=== PATIENT | male | born 1970 | race Caucasian/White ===

== ENCOUNTER 2019-08-22 00:57 | Inpatient (IN) | payer MEDICAID, OTHER ==
[~2019-08-22] VITALS: Ht 185.4 cm; Wt 119.4 kg
[2019-08-22] VITALS (17 sets, daily range): BP systolic 105–174; BP diastolic 65–105
[2019-08-22] MEDS ORDERED: iohexol 350MG/ML 100ml bottle IV ONE (01:22)
--- NOTE | 2019-08-22 01:22 | NUR ---
PT OUT TO CT VIA WHEELCHAIR. HE IS CRACKING JOKES.
[2019-08-22 01:26] LABS: BASOPHILS # (AUTO) 0.1 X10'3 (0-0.2); BASOPHILS % (AUTO) 0.8 % (0-1); EOSINOPHILS # (AUTO) 0.2 X10'3 (0-0.9); EOSINOPHILS % (AUTO) 2.3 % (0-6); HEMOGLOBIN 14.8 g/dl (14.0-17.9); LYMPHOCYTES % (AUTO) 20.4 % (21-51); MEAN CORPUSCULAR HEMOGLOBIN 28.1 PG (27.0-31.0); MEAN CORPUSCULAR HGB CONC 32.8 g/dL (33.0-36.5); MEAN CORPUSCULAR VOLUME 85.6 FL (78-98); MONOCYTES # (AUTO) 0.9 X10'3 (0-0.9); MONOCYTES % (AUTO) 9.2 % (2-12); NEUTROPHILS # (AUTO) 6.5 X10'3 (1.8-7.7); NEUTROPHILS % (AUTO) 67.3 % (42-75); PLATELET COUNT 307 X10'3 (140-440); RED BLOOD COUNT 5.25 X10'6 (4.70-6.10); RED CELL DISTRIBUTION WIDTH 14.1 % (11.5-14.5); WHITE BLOOD COUNT 9.6 X10'3 (4.5-11.0)
[2019-08-22 01:42] LABS: ALANINE AMINOTRANSFERASE 48 U/L (12-78); ALBUMIN 2.9 G/DL (3.4-5.0); ALBUMIN/GLOBULIN RATIO 0.9 (1.1-1.5); ALKALINE PHOSPHATASE 113 IU/L (46-116); ANION GAP 8 (8-16); ASPARTATE AMINO TRANSFERASE 23 U/L (10-37); BILIRUBIN,TOTAL 0.4 MG/DL (0.1-1.0); BLOOD UREA NITROGEN 25 MG/DL (7-18); BUN/CREATININE RATIO 17.5 (5.4-32.0); CALCIUM 8.2 MG/DL (8.5-10.1); CHLORIDE 108 MMOL/L (99-107); CREATININE 1.43 MG/DL (0.60-1.10); GLUCOSE 94 MG/DL (70-104); POTASSIUM 4.5 MMOL/L (3.5-5.1); SODIUM 144 MMOL/L (135-145); TOTAL CARBON DIOXIDE 28.4 MMOL/L (24-32); TOTAL PROTEIN 6.1 G/DL (6.4-8.2); eGFR 52 ML/MIN
[2019-08-22] MEDS ORDERED: enoxaparin 100mg/ml syringe SUBCUT ONE (02:20)
[2019-08-22] MEDS ORDERED: enoxaparin 60mg/0.6ml syringe SUBCUT ONE ×2 (02:25→15:25)
[2019-08-22] MEDS ORDERED: potassium Cl 20 mEq SR tablet PO PRN ×2 (03:20)
[2019-08-22] MEDS ORDERED: magnesium 4gm in 100ml NS 100 ML IV PRN (03:20)
[2019-08-22] MEDS ORDERED: magnesium Cl slow-release 64mg tablet PO PRN (03:20)
[2019-08-22] MEDS ORDERED: magnesium 2GM in 50ml NS 50 ML IV PRN (03:20)
[2019-08-22] MEDS ORDERED: ondansetron/PF 4mg/2ml inj IV PRN (03:20)
[2019-08-22] MEDS ORDERED: acetaminophen 325mg tablet PO PRN (03:20)
[2019-08-22] MEDS ORDERED: HYDROcodone/acetaminophen 5mg/325mg tablet PO PRN (03:20)
[2019-08-22] MEDS ORDERED: potassium CL 10mEq/100ml bag 100 ML IV PRN ×2 (03:20)
--- NOTE | 2019-08-22 03:30 | NUR ---
Had a long discussion with the patient to educate him about meth and the effects to his health and encouraged him that 2 days ago will need of been his last time because his body is screaming at him right now. Pt very open to discussion asked questions and took it to heart.
[2019-08-22] MEDS ORDERED: diltiazem 5mg/ml 5ml inj. IV ONE ×2 (04:35→15:05)
[2019-08-22] MEDS: normal saline 1000ml 1,000 ML IV SCH (05:47)
[2019-08-22] MEDS ORDERED: piperacillin/tazo 3.375gm/50ml 50 ML IV SCH (06:00)
[2019-08-22] MEDS ORDERED: normal saline 1000ml 1,000 ML IV SCH (06:00)
--- NOTE | 2019-08-22 07:33 | NUR ---
Patient in room PCU 3028. I have received report from PRODUCT INSPECTION SUPERVISOR and had the opportunity to ask questions and assume patient care.
--- NOTE | 2019-08-22 07:55 | NUR ---
pt arrived on unit
[2019-08-22] MEDS: K and/or MAG REPLACEMENT MC SCH ×2 (08:00→20:00)
[2019-08-22] MEDS ORDERED: levoFLOXACIN-Levaquin 750MG/D5 150 ML IV SCH (08:00)
--- NOTE | 2019-08-22 08:17 | NUR ---
Vancomycin started in ER, not scanned. Scanned and verified by RN on PCU.
--- NOTE | 2019-08-22 08:18 | NUR ---
VANCOMYCIN STARTED IN ER AT 0745, UNABLE TO DOCUMENT IN EMAR DUE TO SCAN ISSUES.
--- NOTE | 2019-08-22 08:19 | NUR ---
Meds not given in ER. Will administer on PCU. Pharmacy message noted on PCU.
[2019-08-22] MEDS: lactobacillus rhamnosus 10,000 MMU CELLS/CAPSULE PO SCH ×2 (08:21→21:20)
[2019-08-22] MEDS: furosemide 40mg/4ml inj IV SCH ×2 (09:08→21:19)
[2019-08-22] MEDS ORDERED: NO HOME MEDS (09:45)
[2019-08-22] MEDS: piperacillin/tazo 3.375gm/50ml 50 ML IV SCH ×2 (11:03→16:36)
--- NOTE | 2019-08-22 14:58 | NUR ---
Report given to charge gang weigher for lunch. No phone to give.
[2019-08-22] MEDS ORDERED: diltiazem-NS 100mg/100ml 125 ML IV SCH (15:05)
--- NOTE | 2019-08-22 15:30 | NUR ---
resumed care of pt
[2019-08-22 15:55] LABS: PARTIAL THROMBOPLASTIN TIME 29 SECONDS (22-32)
[2019-08-22] MEDS: diltiazem-NS 100mg/100ml 100 ML IV SCH (16:03)
--- NOTE | 2019-08-22 17:33 | NUR ---
Sent to Dr Duvall PAGER ID: [phone] MESSAGE: RE: Daniel Khan [id number]. Pt having increasing SOB. -Kim [phone]
--- NOTE | 2019-08-22 17:36 | NUR ---
Dr Duvall aware of pt's SOB. 1 mg ativan IV Q 4hr PRN ordered for anxiety. will continue to monitor
[2019-08-22] MEDS ORDERED: LORazepam 2 mg/ml vial IV PRN (17:40)
--- NOTE | 2019-08-22 18:40 | NUR ---
Problems reprioritized. Patient report given, questions answered & plan of care reviewed with MOOSE Conner.
[2019-08-22] MEDS ORDERED: enoxaparin 40mg/0.4ml syringe SQ SCH (20:00)
[2019-08-22] MEDS ORDERED: enoxaparin 80mg/0.8ml syringe SUBCUT SCH (20:00)
[2019-08-22] MEDS: enoxaparin 60mg/0.6ml syringe SUBCUT SCH (21:21)
[2019-08-23] VITALS (13 sets, daily range): BP systolic 100–150; BP diastolic 63–106
[2019-08-23] MEDS: piperacillin/tazo 3.375gm/50ml 50 ML IV SCH ×3 (04:40→16:23)
[2019-08-23 05:21] LABS: BASOPHILS # (AUTO) 0.1 X10'3 (0-0.2); BASOPHILS % (AUTO) 1.1 % (0-1); EOSINOPHILS # (AUTO) 0.3 X10'3 (0-0.9); EOSINOPHILS % (AUTO) 3.1 % (0-6); HEMATOCRIT 45.3 % (42.0-52.0); HEMOGLOBIN 15.3 g/dl (14.0-17.9); LYMPHOCYTES # (AUTO) 1.9 X10'3 (1.1-4.8); LYMPHOCYTES % (AUTO) 19.1 % (21-51); MEAN CORPUSCULAR HEMOGLOBIN 28.8 PG (27.0-31.0); MEAN CORPUSCULAR HGB CONC 33.9 g/dL (33.0-36.5); MEAN CORPUSCULAR VOLUME 85.1 FL (78-98); MEAN PLATELET VOLUME 8.3 FL (7.4-10.4); MONOCYTES # (AUTO) 0.9 X10'3 (0-0.9); NEUTROPHILS # (AUTO) 6.8 X10'3 (1.8-7.7); NEUTROPHILS % (AUTO) 67.7 % (42-75); PLATELET COUNT 286 X10'3 (140-440); RED BLOOD COUNT 5.33 X10'6 (4.70-6.10); WHITE BLOOD COUNT 10.1 X10'3 (4.5-11.0)
[2019-08-23 05:22] LABS: PARTIAL THROMBOPLASTIN TIME 25 SECONDS (22-32)
[2019-08-23 05:38] LABS: ALBUMIN 3.1 G/DL (3.4-5.0); ANION GAP 7 (8-16); BLOOD UREA NITROGEN 27 MG/DL (7-18); BUN/CREATININE RATIO 16.9 (5.4-32.0); CALCIUM 8.7 MG/DL (8.5-10.1); CHLORIDE 104 MMOL/L (99-107); CHOL/HDL RATIO 2.6 (0.00-4.99); CHOLESTEROL 113 MG/DL (0-200); GLUCOSE 93 MG/DL (70-104); HDL CHOLESTEROL 44 MG/DL (35-60); LDL CHOLESTEROL 65 MG/DL (50-100); MAGNESIUM 1.8 MG/DL (1.5-2.4); POTASSIUM 3.8 MMOL/L (3.5-5.1); SODIUM 140 MMOL/L (135-145); TOTAL CARBON DIOXIDE 29.4 MMOL/L (24-32); TRIGLYCERIDES 55 MG/DL (20-135); eGFR 46 ML/MIN
--- NOTE | 2019-08-23 06:53 | NUR ---
Patient in room PCU 3028. I have received report from MOOSE Conner and had the opportunity to ask questions and assume patient care.
[2019-08-23] MEDS: K and/or MAG REPLACEMENT MC SCH ×2 (07:09→20:00)
[2019-08-23] MEDS: furosemide 40mg/4ml inj IV SCH ×2 (07:18→20:17)
[2019-08-23] MEDS: enoxaparin 60mg/0.6ml syringe SUBCUT SCH ×2 (07:19→20:18)
[2019-08-23] MEDS: lactobacillus rhamnosus 10,000 MMU CELLS/CAPSULE PO SCH ×2 (07:19→20:17)
--- NOTE | 2019-08-23 07:47 | NUR ---
Kenan Kline in Pharmacy the pharmacist on today hold the 0800 Zosyn due to the last nights still running after being ran late.
[2019-08-23] MEDS: diltiazem-NS 100mg/100ml 100 ML IV SCH (08:22)
--- NOTE | 2019-08-23 18:43 | NUR ---
Problems reprioritized. Patient report given, questions answered & plan of care reviewed with MOOSE Lea.
[2019-08-23 19:18] LABS: CLARITY,URINE CLEAR (Clear); COLOR,URINE YELLOW (Yellow); GLUCOSE, URINE NEGATIVE (Neg); KETONES,URINE NEGATIVE (Neg); LEUKOCYTE ESTERASE ,URINE NEGATIVE (Neg); NITRITES, URINE NEGATIVE (Neg); OCCULT BLOOD,URINE NEGATIVE (Neg); PH,URINE 7.5 (4.8-8.0); PROTEIN,URINE NEGATIVE (Neg); UROBILINOGEN,URINE 0.2 E.U/dL (0.2-1.0)
[2019-08-23 19:23] LABS: UA COLLECTION TYPE URINAL
[2019-08-23 19:24] LABS: URINE AMPHETAMINE SCREEN NEGATIVE (Neg); URINE BARBITUATE SCREEN NEGATIVE (Neg); URINE BENZODIAZEPINES SCREEN NEGATIVE (Neg); URINE CANNABINOID SCREEN NEGATIVE (Neg); URINE COCAINE SCREEN NEGATIVE (Neg); URINE METHADONE SCREEN NEGATIVE (Neg); URINE OPIATE SCREEN NEGATIVE (Neg); URINE PHENCYCLIDINE SCREEN NEGATIVE (Neg)
[2019-08-23] MEDS ORDERED: VANCOMYCIN LEVEL IV ONE (19:30)
[2019-08-24] VITALS (13 sets, daily range): BP systolic 89–143; BP diastolic 20–92
[2019-08-24] MEDS: piperacillin/tazo 3.375gm/50ml 50 ML IV SCH (00:42)
[2019-08-24] MEDS: normal saline 1000ml 1,000 ML IV SCH (03:20)
[2019-08-24] MEDS: diltiazem-NS 100mg/100ml 100 ML IV SCH (05:19)
--- NOTE | 2019-08-24 06:05 | NUR ---
Problems reprioritized. Patient report given, questions answered & plan of care reviewed with Maico VIRK.
--- NOTE | 2019-08-24 06:09 | NUR ---
Patient in room PCU 3028. I have received report from MOOSE Lea and had the opportunity to ask questions and assume patient care.
[2019-08-24 06:17] LABS: BASOPHILS # (AUTO) 0.1 X10'3 (0-0.2); EOSINOPHILS # (AUTO) 0.3 X10'3 (0-0.9); EOSINOPHILS % (AUTO) 3.4 % (0-6); HEMATOCRIT 47.9 % (42.0-52.0); HEMOGLOBIN 16.3 g/dl (14.0-17.9); LYMPHOCYTES # (AUTO) 1.6 X10'3 (1.1-4.8); LYMPHOCYTES % (AUTO) 16.6 % (21-51); MEAN CORPUSCULAR HEMOGLOBIN 28.5 PG (27.0-31.0); MEAN PLATELET VOLUME 8.1 FL (7.4-10.4); MONOCYTES # (AUTO) 0.9 X10'3 (0-0.9); NEUTROPHILS # (AUTO) 6.5 X10'3 (1.8-7.7); PLATELET COUNT 321 X10'3 (140-440); RED CELL DISTRIBUTION WIDTH 13.6 % (11.5-14.5); WHITE BLOOD COUNT 9.4 X10'3 (4.5-11.0)
[2019-08-24 06:23] LABS: PARTIAL THROMBOPLASTIN TIME 31 SECONDS (22-32)
[2019-08-24 06:43] LABS: ALBUMIN 3.1 G/DL (3.4-5.0); ANION GAP 11 (8-16); BLOOD UREA NITROGEN 30 MG/DL (7-18); BUN/CREATININE RATIO 16.7 (5.4-32.0); CALCIUM 8.8 MG/DL (8.5-10.1); CHLORIDE 102 MMOL/L (99-107); GLUCOSE 118 MG/DL (70-104); MAGNESIUM 1.8 MG/DL (1.5-2.4); POTASSIUM 3.6 MMOL/L (3.5-5.1); SODIUM 142 MMOL/L (135-145); TOTAL CARBON DIOXIDE 28.9 MMOL/L (24-32); eGFR 40 ML/MIN
[2019-08-24] MEDS: furosemide 40mg/4ml inj IV SCH (07:53)
[2019-08-24] MEDS: lactobacillus rhamnosus 10,000 MMU CELLS/CAPSULE PO SCH ×2 (07:53→19:44)
[2019-08-24] MEDS: enoxaparin 60mg/0.6ml syringe SUBCUT SCH ×2 (07:54→19:45)
[2019-08-24] MEDS ORDERED: levoFLOXACIN 500mg tablet PO SCH (07:55)
[2019-08-24] MEDS: K and/or MAG REPLACEMENT MC SCH ×2 (08:00→19:24)
[2019-08-24] MEDS ORDERED: VANCOmycin 1250MG/NS 250ml Bag 250 ML IV SCH (08:00)
--- NOTE | 2019-08-24 08:42 | NUR ---
PAGER ID: [phone] MESSAGE: [id number] Daniel Khan: regarding the daily Levaquin: Do you want me to give a dose now and then one at 11am? Or just the 11am dose? MOOSE Nina Ext [phone]
[2019-08-24] MEDS: diltiazem 30mg tablet PO SCH ×3 (08:53→19:44)
[2019-08-24] MEDS ORDERED: FLU VACC QS2019-20 36MOS UP/PF 60 MCG/0.5 ML SYRINGE IMVAC ONE (10:00)
[2019-08-24] MEDS ORDERED: pneumococcal 23-VAL P-sac vacc 25 mcg/0.5ml vial IMVAC ONE (10:00)
[2019-08-24] MEDS: levoFLOXACIN 500mg tablet PO SCH (10:55)
--- NOTE | 2019-08-24 14:40 | NUR ---
Refused to ambulate around the khoury patient wants to sleep
--- NOTE | 2019-08-24 18:02 | NUR ---
Problems reprioritized. Patient report given, questions answered & plan of care reviewed with MOOSE Lea.
[2019-08-25] MEDS: diltiazem 30mg tablet PO SCH ×3 (02:59→14:15)
[2019-08-25 03:00] VITALS: BP 114/67
[2019-08-25 06:00] VITALS: BP 111/52
--- NOTE | 2019-08-25 06:04 | NUR ---
Problems reprioritized. Patient report given, questions answered & plan of care reviewed with Maico VIRK.
--- NOTE | 2019-08-25 06:25 | NUR ---
Patient in room PCU 3028. I have received report from MOOSE Lea and had the opportunity to ask questions and assume patient care.
[2019-08-25 06:26] LABS: BASOPHILS # (AUTO) 0.1 X10'3 (0-0.2); BASOPHILS % (AUTO) 0.6 % (0-1); EOSINOPHILS # (AUTO) 0.3 X10'3 (0-0.9); EOSINOPHILS % (AUTO) 2.9 % (0-6); HEMATOCRIT 49.8 % (42.0-52.0); HEMOGLOBIN 16.9 g/dl (14.0-17.9); LYMPHOCYTES # (AUTO) 1.8 X10'3 (1.1-4.8); LYMPHOCYTES % (AUTO) 19.5 % (21-51); MEAN CORPUSCULAR HEMOGLOBIN 28.6 PG (27.0-31.0); MEAN CORPUSCULAR HGB CONC 33.9 g/dL (33.0-36.5); MEAN CORPUSCULAR VOLUME 84.6 FL (78-98); MEAN PLATELET VOLUME 8.3 FL (7.4-10.4); MONOCYTES # (AUTO) 1.1 X10'3 (0-0.9); MONOCYTES % (AUTO) 11.5 % (2-12); NEUTROPHILS # (AUTO) 6.1 X10'3 (1.8-7.7); NEUTROPHILS % (AUTO) 65.5 % (42-75); PLATELET COUNT 331 X10'3 (140-440); RED BLOOD COUNT 5.89 X10'6 (4.70-6.10); RED CELL DISTRIBUTION WIDTH 13.9 % (11.5-14.5); WHITE BLOOD COUNT 9.3 X10'3 (4.5-11.0)
[2019-08-25 06:30] LABS: ALBUMIN 3.1 G/DL (3.4-5.0); ANION GAP 8 (8-16); BLOOD UREA NITROGEN 29 MG/DL (7-18); BUN/CREATININE RATIO 16.7 (5.4-32.0); CALCIUM 8.7 MG/DL (8.5-10.1); CHLORIDE 103 MMOL/L (99-107); CREATININE 1.74 MG/DL (0.60-1.10); GLUCOSE 85 MG/DL (70-104); PARTIAL THROMBOPLASTIN TIME 33 SECONDS (22-32); POTASSIUM 3.9 MMOL/L (3.5-5.1); SODIUM 140 MMOL/L (135-145); TOTAL CARBON DIOXIDE 29.2 MMOL/L (24-32); eGFR 42 ML/MIN
[2019-08-25] MEDS: K and/or MAG REPLACEMENT MC SCH (07:00)
[2019-08-25] MEDS ORDERED: MESSAGE TO NURSING IV ONE (07:30)
[2019-08-25] MEDS: enoxaparin 60mg/0.6ml syringe SUBCUT SCH (07:48)
[2019-08-25] MEDS: lactobacillus rhamnosus 10,000 MMU CELLS/CAPSULE PO SCH (07:48)
[2019-08-25] MEDS ORDERED: furosemide 20MG tablet PO SCH (08:00)
[2019-08-25] MEDS ORDERED: LACT1CAP26 PO (10:56)
[2019-08-25] MEDS ORDERED: LEVO500T89 PO (10:56)
[2019-08-25] MEDS ORDERED: FURO20TA4 PO (10:56)
[2019-08-25] MEDS ORDERED: DILT240C88 PO (10:56)
[2019-08-25] MEDS ORDERED: APIX5TAB3 PO (10:56)
[2019-08-25 11:00] VITALS: BP 110/67
[2019-08-25] MEDS: levoFLOXACIN 500mg tablet PO SCH (11:04)
[2019-08-25] MEDS: diltiazem-NS 100mg/100ml 100 ML IV SCH (13:01)
--- NOTE | 2019-08-25 13:32 | NUR ---
Called in medications to [facility] in [place], [place], talked to Austin Branham.
--- NOTE | 2019-08-25 16:14 | NUR ---
Discharged at 1550. Taken down to lobby by Jolicloud and picked up by family. Meds called in. Educated on meds and given coupon for Eliquis. Educated on A-fib, cellulitis and quitting meth. Educated on follow-up. Tele returned and PIV's taken out. Went with belongings. Stable per Dr Morales for discharge.
[2019-08-25] MEDS ORDERED: VANCOMYCIN LEVEL IV ONE (19:30)
== END 2019-08-25 15:58 | disposition home or self-care (01) | DRG 134 ==
LOC: ER 00:57 → ED HOLD 03:20 → EDBEDREQ 06:30 → PCU 3S 06:59
PROVIDERS: ADMIT Internal Medicine; ATTEND Family Medicine
PROC: B32T1ZZ Computerized Tomography (CT Scan) of Left Pulmonary Artery using Low Osmolar Contrast (ICD-10-PCS; 2019-08-22)
PROC: B3201ZZ Computerized Tomography (CT Scan) of Thoracic Aorta using Low Osmolar Contrast (ICD-10-PCS; 2019-08-22)
PROC: B32S1ZZ Computerized Tomography (CT Scan) of Right Pulmonary Artery using Low Osmolar Contrast (ICD-10-PCS; 2019-08-22)
PROC: 3E02340 Introduction of Influenza Vaccine into Muscle, Percutaneous Approach (ICD-10-PCS; principal; 2019-08-24)
PROC: 3E0234Z Introduction of Serum, Toxoid and Vaccine into Muscle, Percutaneous Approach (ICD-10-PCS; 2019-08-24)
DX: I26.99 Other pulmonary embolism without acute cor pulmonale (principal); I21.A1 Myocardial infarction type 2; J69.0 Pneumonitis due to inhalation of food and vomit; N17.9 Acute kidney failure, unspecified; I48.91 Unspecified atrial fibrillation; I13.0 Hypertensive heart and chronic kidney disease with heart failure and stage 1 through stage 4 chronic kidney disease, or unspecified chronic kidney disease; L03.115 Cellulitis of right lower limb; I50.9 Heart failure, unspecified; N18.9 Chronic kidney disease, unspecified; I48.92 Unspecified atrial flutter; F15.10 Other stimulant abuse, uncomplicated; R00.0 Tachycardia, unspecified; F17.210 Nicotine dependence, cigarettes, uncomplicated; J45.909 Unspecified asthma, uncomplicated; Z85.47 Personal history of malignant neoplasm of testis; Z23 Encounter for immunization; Z71.51 Drug abuse counseling and surveillance of drug abuser; Z71.6 Tobacco abuse counseling
CPT/HCPCS: 36415; 71045; 71275; 80048; 80053; 80061; 80202; 80305; 81003; 83735; 83880; 84443; 84484; 85025; 85610; 85730; 87070; 87077; 87081; 87186; 93005; 93306; 93971; 96372; 99291; G0378; J1650; J1940; J2060; J2543; J3370; J3490; J7030; Q2037; Q9967

== ENCOUNTER 2019-10-09 14:04 | Inpatient (IN) | payer MEDICAID ==
[~2019-10-09] VITALS: Ht 177.8 cm; Wt 106.0 kg
[~2019-10-09 14:04] MED LIST: APIX5TAB3 PO; DILT240C88 PO; FURO20TA4 PO; LACT1CAP26 PO; LEVO500T89 PO
[2019-10-09] MEDS ORDERED: aspirin 81mg tab.chew PO ONE ×2 (14:20→15:05)
[2019-10-09 14:39] LABS: BASOPHILS # (AUTO) 0.1 X10'3 (0-0.2); BASOPHILS % (AUTO) 0.7 % (0-1); EOSINOPHILS # (AUTO) 0.1 X10'3 (0-0.9); EOSINOPHILS % (AUTO) 1.1 % (0-6); HEMATOCRIT 45.7 % (42.0-52.0); HEMOGLOBIN 14.9 g/dl (14.0-17.9); LYMPHOCYTES # (AUTO) 1.3 X10'3 (1.1-4.8); LYMPHOCYTES % (AUTO) 13.5 % (21-51); MEAN CORPUSCULAR HGB CONC 32.6 g/dL (33.0-36.5); MEAN CORPUSCULAR VOLUME 82.8 FL (78-98); MONOCYTES # (AUTO) 1.3 X10'3 (0-0.9); MONOCYTES % (AUTO) 13.3 % (2-12); NEUTROPHILS # (AUTO) 7.1 X10'3 (1.8-7.7); NEUTROPHILS % (AUTO) 71.4 % (42-75); PLATELET COUNT 286 X10'3 (140-440); RED BLOOD COUNT 5.52 X10'6 (4.70-6.10); RED CELL DISTRIBUTION WIDTH 15.6 % (11.5-14.5); WHITE BLOOD COUNT 9.9 X10'3 (4.5-11.0)
[2019-10-09 14:51] LABS: ALANINE AMINOTRANSFERASE 36 U/L (12-78); ALBUMIN 3.4 G/DL (3.4-5.0); ALBUMIN/GLOBULIN RATIO 1.1 (1.1-1.5); ALKALINE PHOSPHATASE 102 IU/L (46-116); ANION GAP 5 (8-16); ASPARTATE AMINO TRANSFERASE 32 U/L (10-37); BILIRUBIN,TOTAL 1.2 MG/DL (0.1-1.0); BLOOD UREA NITROGEN 30 MG/DL (7-18); BUN/CREATININE RATIO 15.8 (5.4-32.0); CALCIUM 8.9 MG/DL (8.5-10.1); CHLORIDE 107 MMOL/L (99-107); GLUCOSE 89 MG/DL (70-104); POTASSIUM 4.8 MMOL/L (3.5-5.1); SODIUM 142 MMOL/L (135-145); TOTAL CARBON DIOXIDE 29.9 MMOL/L (24-32); TOTAL PROTEIN 6.5 G/DL (6.4-8.2); eGFR 38 ML/MIN
--- NOTE | 2019-10-09 14:52 | NUR ---
PT WAS HERE FOR CHF AND GIVEN PRESCRIPTION FOR LASIX. PT AWAITING INSURANCE APPROVAL. PT UNABLE TO FILL PRESCRIPTION AND FEELING TIGHTNESS IN HIS CHEST FROM FLUIDS PT STATES. PT HAS BILAT LOWER EXTREMITY EDEMA.
[2019-10-09 14:59] LABS: MAGNESIUM 1.9 MG/DL (1.5-2.4)
[2019-10-09] MEDS ORDERED: heparin 25,000 UNIT/250ml bag 250 ML IV SCH (15:03)
[2019-10-09] MEDS ORDERED: heparin 10,000 units/1 ML INJ IV ONE ×2 (15:05→15:35)
[2019-10-09] MEDS ORDERED: nitroGLYCERIN 0.4mg SUBLingual tab SL PRN (15:05)
[2019-10-09] MEDS ORDERED: heparin 10,000 units/1 ML INJ IV PRN ×2 (15:05→15:35)
[2019-10-09 15:25] LABS: PARTIAL THROMBOPLASTIN TIME 28 SECONDS (22-32)
[2019-10-09] MEDS ORDERED: normal saline 1000ml 1,000 ML IV SCH (15:33)
[2019-10-09] MEDS ORDERED: mag hydrox/Alum hydrox/simeth 30ml oral suspension PO PRN (15:35)
[2019-10-09] MEDS ORDERED: magnesium hydroxide 30ml (MOM) UD suspension PO PRN (15:35)
[2019-10-09] MEDS ORDERED: ondansetron/PF 4mg/2ml inj IV PRN (15:35)
[2019-10-09] MEDS: heparin 25,000 UNIT/250ml bag 250 ML IV SCH ×2 (15:50→21:57)
[2019-10-09] MEDS ORDERED: FURO40TA4 PO (16:23)
[2019-10-09] MEDS ORDERED: HYDR-3686 PO (16:24)
[2019-10-09] MEDS ORDERED: WARF1TAB83 PO (16:25)
[2019-10-09] MEDS ORDERED: METO50TA16 PO (16:25)
--- NOTE | 2019-10-09 17:18 | NUR ---
Patient going to RM 316. I have received report from MOOSE Olmedo and had the opportunity to ask questions and assume patient care.
[2019-10-09 17:55] VITALS: BP 151/109
--- NOTE | 2019-10-09 18:00 | NUR ---
PAGER ID: [phone] MESSAGE: RM 316 (ER admit) HR 139, BP 151/109. Pt SOB RR 28, edematous +2/+3 generalized. Echo? Please reconcile meds. Thx ACCE [id number]
--- NOTE | 2019-10-09 18:24 | NUR ---
Problems reprioritized. Patient report given, questions answered & plan of care reviewed with MOOSE Kaye.
--- NOTE | 2019-10-09 18:26 | NUR ---
received report from MOOSE Forte
[2019-10-09] MEDS: furosemide 10 MG/1 ML 10ml inj IV SCH (19:09)
--- NOTE | 2019-10-09 19:15 | NUR ---
paged dr. sommer about pt being on heparin gtt, SOB, pain R neck, HR 130s, BP 170/117, dusky skin, delayed cap refill, states same feeling prior getting PE last month. MD aware of scheduled coumadin of 9mg and metoprolol of 50 mg PO tomorrow AM. Dr. Sommer adjusted metoprolol to be given at 1925 once PO 50 mg. pt will then receive it again in the morning. no new orders or changes in regards to coumadin.
[2019-10-09] MEDS ORDERED: ipratropium/albuterol 3ml nebule NEB PRN (19:25)
[2019-10-09] MEDS ORDERED: metoprolol tartrate 50mg tablet PO ONE (19:25)
--- NOTE | 2019-10-09 19:25 | NUR ---
PAGER ID: [phone] MESSAGE: [id number] Daniel Khan on heparin gtt, SOB, pain R neck, HR 130s, BP 170/117, dusky skin, delayed cap refill, states same feeling from PE last month. scheduled coumadin 9mg&metoprolol 50 mg PO tmo AM. change time to now? PRN HTN med? ext. [phone]
[2019-10-09 20:23] LABS: URINE AMPHETAMINE SCREEN POSITIVE (Neg); URINE BARBITUATE SCREEN NEGATIVE (Neg); URINE BENZODIAZEPINES SCREEN NEGATIVE (Neg); URINE CANNABINOID SCREEN NEGATIVE (Neg); URINE COCAINE SCREEN NEGATIVE (Neg); URINE METHADONE SCREEN NEGATIVE (Neg); URINE OPIATE SCREEN NEGATIVE (Neg); URINE PHENCYCLIDINE SCREEN NEGATIVE (Neg)
[2019-10-09] MEDS: morphine 2 MG/ML inj. syringe IV PRN (20:51)
[2019-10-09] MEDS: hydrOXYzine 25 MG tablet PO SCH (20:53)
[2019-10-09 22:00] VITALS: BP 115/61
--- NOTE | 2019-10-10 00:14 | NUR ---
spoke with Dr. Henson on the phone. aware of pt's consistent HR of 130s since arriving in the unit. pt BUN is 30 and creat 1.9. pt also receiving lasix. stated she cannot give any new orders for pt right now and "ST will resolve on its own" depending on pt's hydration. will continue to monitor.
[2019-10-10 02:00] VITALS: BP 137/109
[2019-10-10 03:25] LABS: BASOPHILS # (AUTO) 0.1 X10'3 (0-0.2); BASOPHILS % (AUTO) 0.8 % (0-1); EOSINOPHILS # (AUTO) 0.2 X10'3 (0-0.9); EOSINOPHILS % (AUTO) 1.8 % (0-6); HEMATOCRIT 44.8 % (42.0-52.0); HEMOGLOBIN 14.6 g/dl (14.0-17.9); LYMPHOCYTES # (AUTO) 1.7 X10'3 (1.1-4.8); LYMPHOCYTES % (AUTO) 17.7 % (21-51); MEAN CORPUSCULAR HEMOGLOBIN 27.1 PG (27.0-31.0); MEAN CORPUSCULAR HGB CONC 32.7 g/dL (33.0-36.5); MEAN PLATELET VOLUME 8.4 FL (7.4-10.4); MONOCYTES # (AUTO) 1.1 X10'3 (0-0.9); MONOCYTES % (AUTO) 11.2 % (2-12); NEUTROPHILS # (AUTO) 6.7 X10'3 (1.8-7.7); NEUTROPHILS % (AUTO) 68.5 % (42-75); PLATELET COUNT 273 X10'3 (140-440); RED CELL DISTRIBUTION WIDTH 15.1 % (11.5-14.5); WHITE BLOOD COUNT 9.7 X10'3 (4.5-11.0)
[2019-10-10 03:41] LABS: ALBUMIN 3.3 G/DL (3.4-5.0); ANION GAP 9 (8-16); BLOOD UREA NITROGEN 31 MG/DL (7-18); BUN/CREATININE RATIO 17.5 (5.4-32.0); CALCIUM 8.7 MG/DL (8.5-10.1); CHLORIDE 106 MMOL/L (99-107); CREATININE 1.77 MG/DL (0.60-1.10); GLUCOSE 96 MG/DL (70-104); POTASSIUM 4.5 MMOL/L (3.5-5.1); SODIUM 140 MMOL/L (135-145); TOTAL CARBON DIOXIDE 25.3 MMOL/L (24-32); eGFR 41 ML/MIN
[2019-10-10] MEDS: heparin 25,000 UNIT/250ml bag 250 ML IV SCH ×2 (05:18→08:40)
[2019-10-10 06:00] VITALS: BP 144/97
--- NOTE | 2019-10-10 06:00 | NUR ---
Patient in room MED 316. I have received report from MOOSE Kaye and had the opportunity to ask questions and assume patient care.
[2019-10-10] MEDS: furosemide 10 MG/1 ML 10ml inj IV SCH ×2 (07:33→20:00)
[2019-10-10] MEDS: metoprolol tartrate 50mg tablet PO SCH (07:33)
[2019-10-10] MEDS: warfarin 3mg tablet PO SCH (07:33)
[2019-10-10 11:00] VITALS: BP 130/79
[2019-10-10 15:00] VITALS: BP 131/92
[2019-10-10 18:00] VITALS: BP 137/98
--- NOTE | 2019-10-10 18:22 | NUR ---
Problems reprioritized. Patient report given, questions answered & plan of care reviewed with MOOSE Kaye.
--- NOTE | 2019-10-10 18:59 | NUR ---
received report from MOOSE Forte
[2019-10-10] MEDS: hydrOXYzine 25 MG tablet PO SCH (21:55)
[2019-10-10 22:00] VITALS: BP 139/94
[2019-10-11] MEDS: heparin 25,000 UNIT/250ml bag 250 ML IV SCH ×2 (00:21→16:04)
[2019-10-11 01:07] LABS: BASOPHILS # (AUTO) 0.1 X10'3 (0-0.2); BASOPHILS % (AUTO) 1.6 % (0-1); EOSINOPHILS # (AUTO) 0.2 X10'3 (0-0.9); HEMATOCRIT 42.3 % (42.0-52.0); LYMPHOCYTES # (AUTO) 1.5 X10'3 (1.1-4.8); LYMPHOCYTES % (AUTO) 18.5 % (21-51); MEAN CORPUSCULAR HEMOGLOBIN 27.6 PG (27.0-31.0); MEAN CORPUSCULAR HGB CONC 33.2 g/dL (33.0-36.5); MEAN CORPUSCULAR VOLUME 83.1 FL (78-98); MEAN PLATELET VOLUME 8.2 FL (7.4-10.4); MONOCYTES % (AUTO) 12.1 % (2-12); NEUTROPHILS # (AUTO) 5.4 X10'3 (1.8-7.7); NEUTROPHILS % (AUTO) 64.8 % (42-75); PLATELET COUNT 237 X10'3 (140-440); RED BLOOD COUNT 5.09 X10'6 (4.70-6.10); RED CELL DISTRIBUTION WIDTH 15.5 % (11.5-14.5); WHITE BLOOD COUNT 8.4 X10'3 (4.5-11.0)
[2019-10-11 01:15] LABS: ALBUMIN 3.1 G/DL (3.4-5.0); ANION GAP 5 (8-16); BLOOD UREA NITROGEN 38 MG/DL (7-18); BUN/CREATININE RATIO 23.2 (5.4-32.0); CALCIUM 8.7 MG/DL (8.5-10.1); CHLORIDE 104 MMOL/L (99-107); CREATININE 1.64 MG/DL (0.60-1.10); GLUCOSE 76 MG/DL (70-104); POTASSIUM 3.8 MMOL/L (3.5-5.1); SODIUM 142 MMOL/L (135-145); TOTAL CARBON DIOXIDE 33.4 MMOL/L (24-32); eGFR 45 ML/MIN
--- NOTE | 2019-10-11 01:47 | NUR ---
PT came back at a therapeutic range of 46. rate was not changed. rate has been constantly 18 ml/hr. IV spreadsheet stated it was increased at 19 ml/hr at 0021, but it was still 18 ml/hr. set rate was 19 ml/hr and was not changed in the column before saving. rate was co-signed as rate was not change, maintained at 18 ml/hr.
[2019-10-11 02:00] VITALS: BP 142/75
[2019-10-11 06:00] VITALS: BP 142/108
[2019-10-11] MEDS: metoprolol tartrate 50mg tablet PO SCH ×2 (07:17→19:59)
[2019-10-11] MEDS: acetaminophen 325mg tablet PO PRN ×2 (07:17→19:58)
[2019-10-11] MEDS: warfarin 3mg tablet PO SCH (07:18)
[2019-10-11] MEDS: furosemide 10 MG/1 ML 10ml inj IV SCH ×2 (07:18→20:00)
[2019-10-11] MEDS ORDERED: warfarin 3mg tablet PO ONE (09:40)
[2019-10-11 10:00] VITALS: BP 99/62
[2019-10-11 15:00] VITALS: BP 125/64
[2019-10-11] MEDS: emollient combination-Eucerin 250 ML LOTION TP SCH (15:30)
--- NOTE | 2019-10-11 15:31 | NUR ---
Wound care assessed patients legs, no open wounds, old scabs, dry skin, chronic changes to nails and toes. Eucerin Plus ordered for BLE. If further wound care needs arise notify wound care.
[2019-10-11 18:00] VITALS: BP 157/94
--- NOTE | 2019-10-11 19:16 | NUR ---
Patient in room MED 316. I have received report from Reba VIRK and had the opportunity to ask questions and assume patient care.
[2019-10-11] MEDS: hydrOXYzine 25 MG tablet PO SCH (19:59)
[2019-10-11] MEDS ORDERED: potassium CL 10mEq/100ml bag 100 ML IV PRN (21:55)
[2019-10-11] MEDS ORDERED: potassium Cl 20 mEq SR tablet PO PRN ×2 (21:55)
[2019-10-11 22:00] VITALS: BP 97/66
--- NOTE | 2019-10-11 23:40 | NUR ---
PAGER ID: [phone] MESSAGE: Daniel Khan Rm 316, Here for recurrent PE's on heparin gtt. FYI Patient appears to be in Atrial Flutter, now that HR has slowed. EKG showed Aflutter on admit, Has been documented as sinus tach last few days. Zachary Calderon EXT [phone]
[2019-10-12 01:28] LABS: BASOPHILS # (AUTO) 0.1 X10'3 (0-0.2); BASOPHILS % (AUTO) 0.8 % (0-1); EOSINOPHILS # (AUTO) 0.3 X10'3 (0-0.9); EOSINOPHILS % (AUTO) 3.4 % (0-6); HEMATOCRIT 44.7 % (42.0-52.0); HEMOGLOBIN 14.8 g/dl (14.0-17.9); LYMPHOCYTES # (AUTO) 1.6 X10'3 (1.1-4.8); LYMPHOCYTES % (AUTO) 19.3 % (21-51); MEAN CORPUSCULAR HEMOGLOBIN 27.3 PG (27.0-31.0); MEAN CORPUSCULAR VOLUME 82.6 FL (78-98); MEAN PLATELET VOLUME 8.7 FL (7.4-10.4); MONOCYTES # (AUTO) 1.2 X10'3 (0-0.9); MONOCYTES % (AUTO) 14.7 % (2-12); NEUTROPHILS # (AUTO) 5.2 X10'3 (1.8-7.7); NEUTROPHILS % (AUTO) 61.8 % (42-75); PLATELET COUNT 264 X10'3 (140-440); RED BLOOD COUNT 5.41 X10'6 (4.70-6.10); RED CELL DISTRIBUTION WIDTH 15.3 % (11.5-14.5); WHITE BLOOD COUNT 8.3 X10'3 (4.5-11.0)
[2019-10-12 01:35] LABS: ALBUMIN 3.2 G/DL (3.4-5.0); ANION GAP 7 (8-16); BLOOD UREA NITROGEN 41 MG/DL (7-18); BUN/CREATININE RATIO 26.1 (5.4-32.0); CALCIUM 9.2 MG/DL (8.5-10.1); CHLORIDE 103 MMOL/L (99-107); CREATININE 1.57 MG/DL (0.60-1.10); GLUCOSE 101 MG/DL (70-104); POTASSIUM 3.9 MMOL/L (3.5-5.1); SODIUM 140 MMOL/L (135-145); TOTAL CARBON DIOXIDE 30.5 MMOL/L (24-32); eGFR 47 ML/MIN
[2019-10-12 02:00] VITALS: BP 119/70
[2019-10-12] MEDS: morphine 2 MG/ML inj. syringe IV PRN (05:17)
[2019-10-12 06:00] VITALS: BP 136/87
--- NOTE | 2019-10-12 06:22 | NUR ---
Problems reprioritized. Patient report given, questions answered & plan of care reviewed with Leonora VIRK.
[2019-10-12] MEDS: K and/or MAG REPLACEMENT MC SCH ×2 (08:00→20:00)
[2019-10-12] MEDS: metoprolol tartrate 50mg tablet PO SCH ×2 (09:00→20:04)
[2019-10-12] MEDS: emollient combination-Eucerin 250 ML LOTION TP SCH (09:03)
[2019-10-12] MEDS: warfarin 3mg tablet PO SCH (09:03)
[2019-10-12] MEDS: furosemide 10 MG/1 ML 10ml inj IV SCH ×2 (09:04→20:05)
[2019-10-12] MEDS: heparin 25,000 UNIT/250ml bag 250 ML IV SCH (09:43)
--- NOTE | 2019-10-12 10:32 | NUR ---
PAGER ID: [phone] MESSAGE: Dr. Espinoza[facility] pharmacy, room 316 Bill ANDRADE, Lovenox dose is BID, not daily. Please confirm this order. Thank you, Michelle Dumont RN [id number]
[2019-10-12 11:00] VITALS: BP 115/73
[2019-10-12 15:00] VITALS: BP 119/88
--- NOTE | 2019-10-12 15:46 | NUR ---
Per RN pt still hungry following meals. Pt currently on heart healthy diet documented with 100% PO intake. Pt to begin receiving double protein TID, d/w dietary. Will continue to follow. Addendum: 10/12/19 at [address] Amended: Links added.
[2019-10-12 18:00] VITALS: BP 121/88
--- NOTE | 2019-10-12 18:25 | NUR ---
Patient in room MED 316. I have received report from SEREEN VIRK and had the opportunity to ask questions and assume patient care.
--- NOTE | 2019-10-12 18:33 | NUR ---
Problems reprioritized. Patient report given, questions answered & plan of care reviewed with Diamond VIRK.
[2019-10-12] MEDS: enoxaparin 80mg/0.8ml syringe SUBCUT SCH (20:03)
[2019-10-12] MEDS: enoxaparin 30mg/0.3ml syringe SUBCUT SCH (20:03)
[2019-10-12] MEDS: hydrOXYzine 25 MG tablet PO SCH (20:04)
[2019-10-12 22:00] VITALS: BP 100/64
[2019-10-13] MEDS: morphine 2 MG/ML inj. syringe IV PRN (01:29)
[2019-10-13 02:00] VITALS: BP 112/72
[2019-10-13 05:37] LABS: ALBUMIN 3.1 G/DL (3.4-5.0); ANION GAP 8 (8-16); BLOOD UREA NITROGEN 46 MG/DL (7-18); BUN/CREATININE RATIO 28.8 (5.4-32.0); CALCIUM 9.6 MG/DL (8.5-10.1); CHLORIDE 102 MMOL/L (99-107); GLUCOSE 94 MG/DL (70-104); POTASSIUM 3.9 MMOL/L (3.5-5.1); SODIUM 140 MMOL/L (135-145); TOTAL CARBON DIOXIDE 30.2 MMOL/L (24-32); eGFR 46 ML/MIN
[2019-10-13 05:45] LABS: BASOPHILS # (AUTO) 0.1 X10'3 (0-0.2); BASOPHILS % (AUTO) 0.9 % (0-1); EOSINOPHILS # (AUTO) 0.3 X10'3 (0-0.9); EOSINOPHILS % (AUTO) 3.3 % (0-6); HEMATOCRIT 47.5 % (42.0-52.0); HEMOGLOBIN 15.5 g/dl (14.0-17.9); LYMPHOCYTES # (AUTO) 1.4 X10'3 (1.1-4.8); LYMPHOCYTES % (AUTO) 17.4 % (21-51); MEAN CORPUSCULAR HGB CONC 32.6 g/dL (33.0-36.5); MEAN CORPUSCULAR VOLUME 82.8 FL (78-98); MEAN PLATELET VOLUME 8.5 FL (7.4-10.4); MONOCYTES # (AUTO) 1.2 X10'3 (0-0.9); MONOCYTES % (AUTO) 15.1 % (2-12); NEUTROPHILS # (AUTO) 4.9 X10'3 (1.8-7.7); NEUTROPHILS % (AUTO) 63.3 % (42-75); PLATELET COUNT 284 X10'3 (140-440); RED BLOOD COUNT 5.73 X10'6 (4.70-6.10); RED CELL DISTRIBUTION WIDTH 15.6 % (11.5-14.5); WHITE BLOOD COUNT 7.8 X10'3 (4.5-11.0)
[2019-10-13 06:00] VITALS: BP 137/92
--- NOTE | 2019-10-13 06:50 | NUR ---
Problems reprioritized. Patient report given, questions answered & plan of care reviewed with Leonora VIRK.
--- NOTE | 2019-10-13 06:58 | NUR ---
Patient in room MED 316. I have received report from Diamond VIRK and had the opportunity to ask questions and assume patient care.
[2019-10-13] MEDS: K and/or MAG REPLACEMENT MC SCH ×2 (08:00→20:00)
[2019-10-13] MEDS: emollient combination-Eucerin 250 ML LOTION TP SCH (10:03)
[2019-10-13] MEDS: metoprolol tartrate 50mg tablet PO SCH ×2 (10:09→19:54)
[2019-10-13] MEDS: furosemide 10 MG/1 ML 10ml inj IV SCH ×2 (10:10→19:56)
[2019-10-13] MEDS: enoxaparin 80mg/0.8ml syringe SUBCUT SCH ×2 (10:11→19:56)
[2019-10-13] MEDS: enoxaparin 30mg/0.3ml syringe SUBCUT SCH ×2 (10:12→19:57)
[2019-10-13] MEDS: warfarin 3mg tablet PO SCH (10:13)
[2019-10-13 11:00] VITALS: BP 154/88
[2019-10-13 15:00] VITALS: BP 124/66
[2019-10-13] MEDS ORDERED: amiodarone 50MG/ML inj IV ONE (17:20)
[2019-10-13 18:00] VITALS: BP 136/85
--- NOTE | 2019-10-13 18:46 | NUR ---
PAGER ID: [phone] MESSAGE: Dr. Hatfield, need clarification on order for pt Bill, on ACCE rm 316. Amiodarone? There is order for IV push, do you want loading dose and then po? Please call ACCE. Michelle Dumont RN [phone]
[2019-10-13] MEDS ORDERED: amiodarone 150mg/dext, iso-os 100 ML IV ONE ×2 (18:55)
--- NOTE | 2019-10-13 18:57 | NUR ---
PAGER ID: [phone] MESSAGE: Daniel Khan, RM 316 Just verifying orders Amiodarone 400mg BID or 200Mg Bid. Zachary EXT [phone]
--- NOTE | 2019-10-13 19:38 | NUR ---
Patient in room MED 316. I have received report from Leonora VIRK and had the opportunity to ask questions and assume patient care.
[2019-10-13] MEDS: amiodarone 200mg tablet PO SCH (21:42)
[2019-10-13] MEDS: hydrOXYzine 25 MG tablet PO SCH (21:42)
[2019-10-13 22:00] VITALS: BP 123/69
[2019-10-14] VITALS (7 sets, daily range): BP systolic 95–124; BP diastolic 65–98
[2019-10-14 06:09] LABS: BASOPHILS # (AUTO) 0.1 X10'3 (0-0.2); BASOPHILS % (AUTO) 0.8 % (0-1); EOSINOPHILS # (AUTO) 0.2 X10'3 (0-0.9); EOSINOPHILS % (AUTO) 2.1 % (0-6); HEMATOCRIT 51.5 % (42.0-52.0); HEMOGLOBIN 17.2 g/dl (14.0-17.9); LYMPHOCYTES # (AUTO) 1.4 X10'3 (1.1-4.8); LYMPHOCYTES % (AUTO) 15.2 % (21-51); MEAN CORPUSCULAR HEMOGLOBIN 27.4 PG (27.0-31.0); MEAN CORPUSCULAR HGB CONC 33.4 g/dL (33.0-36.5); MEAN PLATELET VOLUME 8.5 FL (7.4-10.4); MONOCYTES # (AUTO) 1.2 X10'3 (0-0.9); MONOCYTES % (AUTO) 12.2 % (2-12); NEUTROPHILS # (AUTO) 6.6 X10'3 (1.8-7.7); NEUTROPHILS % (AUTO) 69.7 % (42-75); PLATELET COUNT 315 X10'3 (140-440); RED BLOOD COUNT 6.28 X10'6 (4.70-6.10); RED CELL DISTRIBUTION WIDTH 15.5 % (11.5-14.5); WHITE BLOOD COUNT 9.5 X10'3 (4.5-11.0)
--- NOTE | 2019-10-14 06:41 | NUR ---
Problems reprioritized. Patient report given, questions answered & plan of care reviewed with Pat RN.
[2019-10-14 06:57] LABS: ALBUMIN 3.5 G/DL (3.4-5.0); ANION GAP 11 (8-16); BLOOD UREA NITROGEN 46 MG/DL (7-18); BUN/CREATININE RATIO 29.3 (5.4-32.0); CALCIUM 9.6 MG/DL (8.5-10.1); CHLORIDE 100 MMOL/L (99-107); CHOL/HDL RATIO 2.7 (0.00-4.99); CHOLESTEROL 136 MG/DL (0-200); CREATININE 1.57 MG/DL (0.60-1.10); GLUCOSE 98 MG/DL (70-104); HDL CHOLESTEROL 50 MG/DL (35-60); LDL CHOLESTEROL 73 MG/DL (50-100); POTASSIUM 3.7 MMOL/L (3.5-5.1); SODIUM 140 MMOL/L (135-145); TOTAL CARBON DIOXIDE 28.8 MMOL/L (24-32); TRIGLYCERIDES 76 MG/DL (20-135); eGFR 47 ML/MIN
[2019-10-14] MEDS: K and/or MAG REPLACEMENT MC SCH ×2 (08:00→20:00)
[2019-10-14] MEDS: aspirin 81mg tablet.DR PO SCH (08:30)
[2019-10-14] MEDS: metoprolol tartrate 50mg tablet PO SCH ×2 (09:50→20:15)
[2019-10-14] MEDS: amiodarone 200mg tablet PO SCH ×2 (09:50→20:14)
[2019-10-14] MEDS: enoxaparin 30mg/0.3ml syringe SUBCUT SCH ×2 (09:52→20:11)
[2019-10-14] MEDS: warfarin 3mg tablet PO SCH (09:52)
[2019-10-14] MEDS: enoxaparin 80mg/0.8ml syringe SUBCUT SCH ×2 (09:53→20:11)
[2019-10-14] MEDS: furosemide 10 MG/1 ML 10ml inj IV SCH ×2 (09:54→20:14)
[2019-10-14] MEDS: emollient combination-Eucerin 250 ML LOTION TP SCH (09:56)
--- NOTE | 2019-10-14 12:19 | NUR ---
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 PO 75-100% meals receiving double proteins TID meeting needs. LBM 10/12. No nutrition concerns at this time. Will continue to monitor. Rec: 1. continue heart healthy diet; double proteins TIDWM 2. bowel care as needed 3. wt per rx Addendum: 10/14/19 at [address] Amended: Links added.
[2019-10-14] MEDS: hydrOXYzine 25 MG tablet PO SCH (20:14)
[2019-10-14] MEDS: morphine 2 MG/ML inj. syringe IV PRN (21:25)
--- NOTE | 2019-10-14 21:30 | NUR ---
PATIENT REPORTED CHEST PAIN, NONRADIATING, PRESSURE ON LEFT CHEST WALL AND ARM. CHEST PAIN ASSESSMENT WAS PERFORMED, BP TAKEN LEFT AND RIGHT ARMS, PATIENT GIVEN MORPHINE FOR PAIN. WILL MONITOR FOR SYMPTOMATIC CHEST PAIN.
[2019-10-15 02:00] VITALS: BP 107/79
[2019-10-15 04:58] LABS: BASOPHILS # (AUTO) 0.1 X10'3 (0-0.2); BASOPHILS % (AUTO) 1.1 % (0-1); EOSINOPHILS # (AUTO) 0.3 X10'3 (0-0.9); HEMATOCRIT 53.2 % (42.0-52.0); HEMOGLOBIN 17.5 g/dl (14.0-17.9); LYMPHOCYTES # (AUTO) 2.2 X10'3 (1.1-4.8); LYMPHOCYTES % (AUTO) 22.6 % (21-51); MEAN CORPUSCULAR HEMOGLOBIN 27.1 PG (27.0-31.0); MEAN CORPUSCULAR HGB CONC 32.9 g/dL (33.0-36.5); MEAN CORPUSCULAR VOLUME 82.4 FL (78-98); MEAN PLATELET VOLUME 8.5 FL (7.4-10.4); MONOCYTES % (AUTO) 10.2 % (2-12); NEUTROPHILS % (AUTO) 63.1 % (42-75); PLATELET COUNT 319 X10'3 (140-440); RED BLOOD COUNT 6.46 X10'6 (4.70-6.10); RED CELL DISTRIBUTION WIDTH 15.1 % (11.5-14.5); WHITE BLOOD COUNT 9.5 X10'3 (4.5-11.0)
[2019-10-15 05:01] LABS: ALBUMIN 3.5 G/DL (3.4-5.0); ANION GAP 9 (8-16); BLOOD UREA NITROGEN 53 MG/DL (7-18); BUN/CREATININE RATIO 29.8 (5.4-32.0); CALCIUM 9.6 MG/DL (8.5-10.1); CHLORIDE 100 MMOL/L (99-107); CREATININE 1.78 MG/DL (0.60-1.10); GLUCOSE 107 MG/DL (70-104); SODIUM 137 MMOL/L (135-145); TOTAL CARBON DIOXIDE 27.6 MMOL/L (24-32); eGFR 41 ML/MIN
[2019-10-15 05:03] LABS: POTASSIUM 4.3 MMOL/L (3.5-5.1)
--- NOTE | 2019-10-15 06:01 | NUR ---
Problems reprioritized. Patient report given, questions answered & plan of care reviewed with Angel Luis VIRK.
--- NOTE | 2019-10-15 06:25 | NUR ---
Patient in room MED 316. I have received report from Melanie VIRK and had the opportunity to ask questions and assume patient care.
[2019-10-15 06:30] VITALS: BP 102/76
[2019-10-15] MEDS: K and/or MAG REPLACEMENT MC SCH ×2 (08:00→20:00)
[2019-10-15] MEDS: emollient combination-Eucerin 250 ML LOTION TP SCH (08:11)
[2019-10-15] MEDS: aspirin 81mg tablet.DR PO SCH (08:12)
[2019-10-15] MEDS: amiodarone 200mg tablet PO SCH ×2 (08:12→21:01)
[2019-10-15] MEDS: metoprolol tartrate 50mg tablet PO SCH ×2 (08:12→20:00)
[2019-10-15] MEDS: warfarin 3mg tablet PO SCH (08:13)
[2019-10-15] MEDS: furosemide 10 MG/1 ML 10ml inj IV SCH ×2 (08:13→20:00)
[2019-10-15] MEDS: enoxaparin 30mg/0.3ml syringe SUBCUT SCH ×2 (08:14→20:00)
[2019-10-15] MEDS: enoxaparin 80mg/0.8ml syringe SUBCUT SCH (08:14)
[2019-10-15 11:00] VITALS: BP 103/81
[2019-10-15 15:00] VITALS: BP 104/71
--- NOTE | 2019-10-15 17:50 | NUR ---
PAGER ID: [phone] MESSAGE: Sandra RIVERA. INR 3.4. Pharmacy is holding Coumadin. Do you want to continue Lovenox or D/C? Thanks. Angela VIRK Ext [phone] (119 character message out of a maximum of [phone])
[2019-10-15 18:00] VITALS: BP 104/72
--- NOTE | 2019-10-15 18:15 | NUR ---
Patient in room MED 316. I have received report from MOOSE Villafuerte and had the opportunity to ask questions and assume patient care.
--- NOTE | 2019-10-15 18:25 | NUR ---
Gave report to Yolette IVRK
[2019-10-15] MEDS: hydrOXYzine 25 MG tablet PO SCH (21:01)
[2019-10-15 22:00] VITALS: BP 116/75
[2019-10-16 03:00] VITALS: BP 110/52
[2019-10-16 04:54] LABS: BASOPHILS # (AUTO) 0.1 X10'3 (0-0.2); BASOPHILS % (AUTO) 0.7 % (0-1); EOSINOPHILS # (AUTO) 0.2 X10'3 (0-0.9); EOSINOPHILS % (AUTO) 2.5 % (0-6); HEMATOCRIT 52.9 % (42.0-52.0); HEMOGLOBIN 17.6 g/dl (14.0-17.9); LYMPHOCYTES # (AUTO) 2.2 X10'3 (1.1-4.8); LYMPHOCYTES % (AUTO) 22.1 % (21-51); MEAN CORPUSCULAR HGB CONC 33.2 g/dL (33.0-36.5); MEAN CORPUSCULAR VOLUME 81.2 FL (78-98); MEAN PLATELET VOLUME 8.6 FL (7.4-10.4); MONOCYTES # (AUTO) 1.1 X10'3 (0-0.9); MONOCYTES % (AUTO) 11.4 % (2-12); NEUTROPHILS # (AUTO) 6.2 X10'3 (1.8-7.7); NEUTROPHILS % (AUTO) 63.3 % (42-75); PLATELET COUNT 340 X10'3 (140-440); RED BLOOD COUNT 6.51 X10'6 (4.70-6.10); RED CELL DISTRIBUTION WIDTH 15.2 % (11.5-14.5); WHITE BLOOD COUNT 9.8 X10'3 (4.5-11.0)
[2019-10-16 05:12] LABS: ALBUMIN 3.5 G/DL (3.4-5.0); ANION GAP 9 (8-16); BLOOD UREA NITROGEN 62 MG/DL (7-18); BUN/CREATININE RATIO 32.5 (5.4-32.0); CALCIUM 9.2 MG/DL (8.5-10.1); CHLORIDE 100 MMOL/L (99-107); CREATININE 1.91 MG/DL (0.60-1.10); GLUCOSE 100 MG/DL (70-104); POTASSIUM 3.6 MMOL/L (3.5-5.1); SODIUM 139 MMOL/L (135-145); TOTAL CARBON DIOXIDE 29.6 MMOL/L (24-32); eGFR 37 ML/MIN
[2019-10-16 06:00] VITALS: BP 127/94
--- NOTE | 2019-10-16 06:32 | NUR ---
Patient in room MED 316. I have received report from MOOSE Billingsley and had the opportunity to ask questions and assume patient care.
[2019-10-16] MEDS: K and/or MAG REPLACEMENT MC SCH ×2 (08:00→20:00)
[2019-10-16] MEDS: emollient combination-Eucerin 250 ML LOTION TP SCH (08:00)
[2019-10-16] MEDS: metoprolol tartrate 50mg tablet PO SCH ×2 (08:08→22:09)
[2019-10-16] MEDS: enoxaparin 30mg/0.3ml syringe SUBCUT SCH (08:09)
[2019-10-16] MEDS: aspirin 81mg tablet.DR PO SCH (08:30)
[2019-10-16] MEDS: amiodarone 200mg tablet PO SCH ×2 (10:12→19:58)
[2019-10-16] MEDS: furosemide 10 MG/1 ML 10ml inj IV SCH ×2 (10:12→20:00)
[2019-10-16 10:31] LABS: MAGNESIUM 2.5 MG/DL (1.5-2.4)
[2019-10-16 11:00] VITALS: BP 101/73
--- NOTE | 2019-10-16 11:44 | NUR ---
Dr. Duvall present and informed of patients K+ level of 3.6. New orders: K+ and Mg+ replacement per protocol. MOOSE Miller primary RN present and agrees.
[2019-10-16] MEDS ORDERED: magnesium Cl slow-release 64mg tablet PO PRN (11:45)
[2019-10-16] MEDS ORDERED: magnesium 4gm in 100ml NS 100 ML IV PRN (11:45)
[2019-10-16] MEDS ORDERED: potassium Cl 20 mEq SR tablet PO PRN ×2 (11:45)
[2019-10-16] MEDS ORDERED: potassium CL 10mEq/100ml bag 100 ML IV PRN (11:45)
[2019-10-16] MEDS: LORazepam 2 mg/ml vial IV PRN ×2 (12:03→23:17)
[2019-10-16] MEDS ORDERED: iohexol 300mg/ml 100ml inj. ONE (12:45)
[2019-10-16 15:00] VITALS: BP 119/74
[2019-10-16 18:00] VITALS: BP 119/79
--- NOTE | 2019-10-16 18:15 | NUR ---
Patient in room MED 316. I have received report from MOOSE WEISS and had the opportunity to ask questions and assume patient care.
[2019-10-16 22:00] VITALS: BP 115/72
[2019-10-16] MEDS: hydrOXYzine 25 MG tablet PO SCH (22:09)
--- NOTE | 2019-10-16 23:30 | NUR ---
Patient complaining of anxiety, shortness of breath after receiving metoprolol 100mg. BP 91/59 at 2250. Rechecked BP 15 minutes later it was 115/73 Gave PRN Ativan 1mg. Will continue to monitor.
[2019-10-17 02:00] VITALS: BP 88/62
[2019-10-17 06:00] VITALS: BP 122/91
--- NOTE | 2019-10-17 06:17 | NUR ---
Problems reprioritized. Patient report given, questions answered & plan of care reviewed with MOOSE Claire.
[2019-10-17 06:33] LABS: MAGNESIUM 2.4 MG/DL (1.5-2.4); POTASSIUM 4.1 MMOL/L (3.5-5.1)
--- NOTE | 2019-10-17 06:41 | NUR ---
Patient in room MED 316. I have received report from MOOSE De La Vega and had the opportunity to ask questions and assume patient care.
[2019-10-17] MEDS: emollient combination-Eucerin 250 ML LOTION TP SCH (08:00)
[2019-10-17] MEDS: aspirin 81mg tablet.DR PO SCH (08:06)
[2019-10-17] MEDS: amiodarone 200mg tablet PO SCH (08:07)
[2019-10-17] MEDS: furosemide 10 MG/1 ML 10ml inj IV SCH (08:08)
[2019-10-17] MEDS: metoprolol tartrate 50mg tablet PO SCH (08:08)
[2019-10-17] MEDS: K and/or MAG REPLACEMENT MC SCH (08:09)
[2019-10-17 10:00] VITALS: BP 91/65
[2019-10-17] MEDS: LORazepam 2 mg/ml vial IV PRN (10:03)
--- NOTE | 2019-10-17 12:14 | NUR ---
PAGER ID: [phone] MESSAGE: rm. 316. pt. Daniel Khan. pt. already has an order for 1mg Ativan. it was also given 2 hours ago. please advise. MOOSE Rodriguez [phone]
[2019-10-17] MEDS ORDERED: LORazepam 1 MG tablet PO PRN (12:25)
--- NOTE | 2019-10-17 13:02 | NUR ---
PAGER ID: [phone] MESSAGE: 316. pt. Daniel Khan. SAÚL pt. is leaving AMA. thanks. MOOSE Rodriguez
--- NOTE | 2019-10-17 14:09 | NUR ---
pt. went AMA at 1400. , charge nurse and RN explained the risks of leaving AMA and pt. understands and signed the paperwork. pt. stated that he was happy with our services and he had no issues with the staff, he was just tired of waiting around for approval of his lifevest. IV was d/c intact. pt. left with all belongings.
== END 2019-10-17 14:00 | disposition left against medical advice (07) | DRG 194 ==
LOC: ER 14:04 → ED HOLD 15:33 → EDBEDREQ 16:43 → MED 3N 17:39
PROVIDERS: ADMIT Family Medicine; ATTEND Family Medicine
PROC: BW211ZZ Computerized Tomography (CT Scan) of Abdomen and Pelvis using Low Osmolar Contrast (ICD-10-PCS; principal; 2019-10-16)
DX: I13.0 Hypertensive heart and chronic kidney disease with heart failure and stage 1 through stage 4 chronic kidney disease, or unspecified chronic kidney disease (principal); I21.A1 Myocardial infarction type 2; D68.9 Coagulation defect, unspecified; I50.43 Acute on chronic combined systolic (congestive) and diastolic (congestive) heart failure; I42.7 Cardiomyopathy due to drug and external agent; E03.9 Hypothyroidism, unspecified; F15.23 Other stimulant dependence with withdrawal; Z53.29 Procedure and treatment not carried out because of patient's decision for other reasons; F17.210 Nicotine dependence, cigarettes, uncomplicated; I48.91 Unspecified atrial fibrillation; R00.0 Tachycardia, unspecified; J45.909 Unspecified asthma, uncomplicated; N18.9 Chronic kidney disease, unspecified; Z85.47 Personal history of malignant neoplasm of testis; Z86.711 Personal history of pulmonary embolism; Z91.14 Patient's other noncompliance with medication regimen; Z88.8 Allergy status to other drugs, medicaments and biological substances; Z71.51 Drug abuse counseling and surveillance of drug abuser
CPT/HCPCS: 36415; 71045; 74177; 80048; 80053; 80061; 80305; 83735; 83880; 84132; 84443; 84484; 85025; 85610; 85730; 87081; 93005; 93308; 93970; 94760; 99285; G0378; J0282; J1644; J1650; J1940; J2060; J2270; J7030; Q9967; Z7610

== ENCOUNTER 2019-12-22 18:51 | Inpatient (IN) | payer MEDICAID ==
[~2019-12-22] VITALS: Ht 185.4 cm; Wt 120.5 kg
[~2019-12-22 18:51] MED LIST changes: +ALBU8.5H8 INH; -APIX5TAB3 PO; +ASPI-1130; +AZI25OT PO; +BUDE10.22 INH; +CARCD120C PO; -DILT240C88 PO; -FURO20TA4 PO; +FURO40TA4 PO; +HYDR-3686 PO; -LACT1CAP26 PO; -LEVO500T89 PO; +LISI-604 PO; +METO50TA16 PO; +SPIR25TA PO; +WARF1TAB83 PO
[2019-12-22] MEDS ORDERED: diltiazem-D5W 125mg/125ml 125 ML IV SCH (19:10)
[2019-12-22] MEDS ORDERED: diltiazem-NS 100mg/100ml 100 ML IV SCH (19:13)
[2019-12-22] MEDS ORDERED: RIVA10TA PO (19:18)
[2019-12-22] MEDS ORDERED: FURO20TA4 PO (19:18)
[2019-12-22] MEDS ORDERED: heparin 25,000 UNIT/250ml bag 250 ML IV SCH (19:27)
[2019-12-22] MEDS ORDERED: heparin 10,000 units/1 ML INJ IV ONE (19:30)
[2019-12-22 19:47] LABS: TROPONIN I 0.15 NG/ML (0.0-0.05)
--- NOTE | 2019-12-22 19:50 | NUR ---
Venous US of RUE in prog at bedside at this time.
[2019-12-22] MEDS ORDERED: metoprolol tartrate 50mg tablet PO ONE (20:25)
--- NOTE | 2019-12-22 20:52 | NUR ---
Diltiazem gtt DCd per PA order.
[2019-12-22] MEDS ORDERED: ipratropium/albuterol 3ml nebule NEB PRN (22:40)
[2019-12-22] MEDS ORDERED: diphenhydrAMINE 50 mg/ml inj IV PRN (22:40)
[2019-12-22] MEDS ORDERED: potassium Cl 20 mEq SR tablet PO PRN ×2 (22:40)
[2019-12-22] MEDS ORDERED: acetaminophen 325mg tablet PO PRN ×2 (22:40)
[2019-12-22] MEDS ORDERED: magnesium 4gm in 100ml NS 100 ML IV PRN (22:40)
[2019-12-22] MEDS ORDERED: heparin 10,000 units/1 ML INJ IV PRN (22:40)
[2019-12-22] MEDS ORDERED: mag hydrox/Alum hydrox/simeth 30ml oral suspension PO PRN (22:40)
[2019-12-22] MEDS ORDERED: magnesium hydroxide 30ml (MOM) UD suspension PO PRN (22:40)
[2019-12-22] MEDS ORDERED: potassium CL 10mEq/100ml bag 100 ML IV PRN ×2 (22:40)
[2019-12-22] MEDS ORDERED: HYDROcodone/acetaminophen 10/325mg tab PO PRN (22:40)
[2019-12-22] MEDS ORDERED: ondansetron/PF 4mg/2ml inj IV PRN (22:40)
[2019-12-22] MEDS ORDERED: magnesium 2GM in 50ml NS 50 ML IV PRN (22:40)
[2019-12-22] MEDS ORDERED: diphenhydrAMINE 25mg capsule PO PRN (22:40)
--- NOTE | 2019-12-22 23:16 | NUR ---
Patient in room ED 5. I have received report from STAFFING ASSOCIATE and had the opportunity to ask questions and assume patient care.
[2019-12-22 23:30] VITALS: BP 84/66
[2019-12-23 03:00] VITALS: BP 134/84
[2019-12-23] MEDS: metoprolol tartrate 1mg/ml inj IV PRN ×2 (04:30→21:54)
[2019-12-23 06:05] LABS: BASOPHILS # (AUTO) 0.1 X10'3 (0-0.2); BASOPHILS % (AUTO) 0.8 % (0-1); EOSINOPHILS # (AUTO) 0.2 X10'3 (0-0.9); EOSINOPHILS % (AUTO) 1.8 % (0-6); HEMATOCRIT 39.1 % (42.0-52.0); HEMOGLOBIN 12.4 g/dl (14.0-17.9); LYMPHOCYTES # (AUTO) 1.1 X10'3 (1.1-4.8); LYMPHOCYTES % (AUTO) 11.7 % (21-51); MEAN CORPUSCULAR HEMOGLOBIN 26.7 PG (27.0-31.0); MEAN CORPUSCULAR HGB CONC 31.8 g/dL (33.0-36.5); MEAN CORPUSCULAR VOLUME 83.9 FL (78-98); MEAN PLATELET VOLUME 8.4 FL (7.4-10.4); MONOCYTES # (AUTO) 0.8 X10'3 (0-0.9); MONOCYTES % (AUTO) 8.4 % (2-12); NEUTROPHILS # (AUTO) 7.6 X10'3 (1.8-7.7); NEUTROPHILS % (AUTO) 77.3 % (42-75); PLATELET COUNT 288 X10'3 (140-440); RED BLOOD COUNT 4.66 X10'6 (4.70-6.10); RED CELL DISTRIBUTION WIDTH 17.7 % (11.5-14.5); WHITE BLOOD COUNT 9.8 X10'3 (4.5-11.0)
--- NOTE | 2019-12-23 06:19 | NUR ---
Problems reprioritized. Patient report given, questions answered & plan of care reviewed with Diane VIRK.
[2019-12-23 06:44] LABS: CHOL/HDL RATIO 2.2 (0.00-4.99); CHOLESTEROL 132 MG/DL (0-200); HDL CHOLESTEROL 60 MG/DL (35-60); LDL CHOLESTEROL 70 MG/DL (50-100); MAGNESIUM 2.6 MG/DL (1.5-2.4); TRIGLYCERIDES 54 MG/DL (20-135); TROPONIN I 0.11 NG/ML (0.0-0.05)
[2019-12-23 07:00] VITALS: BP 115/89
[2019-12-23] MEDS: nicotine 14mg patch - 24hr TD SCH (07:47)
[2019-12-23] MEDS: lisinopril 5mg tablet PO SCH (07:48)
[2019-12-23] MEDS: docusate sod 100mg capsule PO SCH ×2 (07:48→21:09)
[2019-12-23] MEDS: furosemide 20MG tablet PO SCH (07:48)
[2019-12-23] MEDS: metoprolol tartrate 50mg tablet PO SCH ×3 (07:55→23:46)
[2019-12-23] MEDS: HYDROcodone/acetaminophen 5mg/325mg tablet PO PRN ×2 (07:55→17:54)
[2019-12-23] MEDS: K and/or MAG REPLACEMENT MC SCH ×2 (08:00→20:00)
[2019-12-23] MEDS: budesonide 0.5mg/2ml UD nebule IH SCH ×2 (08:04→19:52)
[2019-12-23] MEDS: albuterol 2.5 MG/3 ML nebule NEB SCH ×3 (08:04→19:52)
[2019-12-23] MEDS: heparin 25,000 UNIT/250ml bag 250 ML IV SCH ×2 (08:51→16:51)
--- NOTE | 2019-12-23 09:35 | NUR ---
Walked into patient's room, witnessed him walking on right foot from bathroom to hospital bed. re-educated patient on his status of non-weight bearing and what that entails for his plan of care. Also included education about anti-anxiety and pain medication availability. Patient became upset and argumentative, insisted he does not know "what is going on" and called his mother to request RN speak with her. Patient's mother Elli was contacted by RN and informed of situation, she was pleaseant, acknowledged patient's underlying anxiety, and verbalized understanding of his plan of care.
--- NOTE | 2019-12-23 09:40 | NUR ---
Dr. Cali at bedside, RN received verbal orders for one time dose of 1mg IV Ativan.
--- NOTE | 2019-12-23 10:54 | NUR ---
Sent page to Dr. Beckwith: PAGER ID: [phone] MESSAGE: [phone] Daniel Khan: He hasn't had a K drawn, may I order one? Thank you, Diane [phone]
[2019-12-23] MEDS ORDERED: levoTHYROXINE sod inj. 100mcg/5 ml vial IV ONE (10:55)
[2019-12-23 11:00] VITALS: BP 105/72
--- NOTE | 2019-12-23 12:05 | NUR ---
Unable to administer IV Synthroid yet, it is a patient specific medication that has not been delivered from pharmacy. Will continue to monitor for availability
--- NOTE | 2019-12-23 13:14 | NUR ---
IV synthroid still not delivered from pharmacy
[2019-12-23 15:00] VITALS: BP 112/78
--- NOTE | 2019-12-23 15:45 | NUR ---
Per Heparin Infusion protocol, I stopped patient's Heparin gtt at 1545 due to patient's PTT being 100. Will inform the primary RN when she returns from lunch.
--- NOTE | 2019-12-23 18:27 | NUR ---
Problems reprioritized. Patient report given, questions answered & plan of care reviewed with Karyna VIRK
--- NOTE | 2019-12-23 18:30 | NUR ---
Patient in room PCU 3011. I have received report from MOOSE Contreras and had the opportunity to ask questions and assume patient care.
[2019-12-23 19:00] VITALS: BP 120/77
[2019-12-23 19:30] LABS: CLARITY,URINE CLEAR (Clear); COLOR,URINE YELLOW (Yellow); GLUCOSE, URINE NEGATIVE (Neg); KETONES,URINE NEGATIVE (Neg); LEUKOCYTE ESTERASE ,URINE NEGATIVE (Neg); NITRITES, URINE NEGATIVE (Neg); OCCULT BLOOD,URINE NEGATIVE (Neg); PROTEIN,URINE NEGATIVE (Neg)
[2019-12-23 19:34] LABS: UA COLLECTION TYPE NON-SPECIFIED
[2019-12-23 19:38] LABS: URINE AMPHETAMINE SCREEN POSITIVE (Neg); URINE BARBITUATE SCREEN NEGATIVE (Neg); URINE BENZODIAZEPINES SCREEN NEGATIVE (Neg); URINE CANNABINOID SCREEN NEGATIVE (Neg); URINE COCAINE SCREEN NEGATIVE (Neg); URINE METHADONE SCREEN NEGATIVE (Neg); URINE OPIATE SCREEN NEGATIVE (Neg); URINE PHENCYCLIDINE SCREEN NEGATIVE (Neg)
[2019-12-23 20:00] LABS: ALBUMIN 3.4 G/DL (3.4-5.0); ANION GAP 9 (8-16); BLOOD UREA NITROGEN 49 MG/DL (7-18); BUN/CREATININE RATIO 19.1 (5.4-32.0); CALCIUM 9.3 MG/DL (8.5-10.1); CHLORIDE 101 MMOL/L (99-107); CREATININE 2.57 MG/DL (0.60-1.10); GLUCOSE 142 MG/DL (70-104); SODIUM 137 MMOL/L (135-145); TOTAL CARBON DIOXIDE 26.8 MMOL/L (24-32); eGFR 27 ML/MIN
[2019-12-23 23:00] VITALS: BP 130/102
--- NOTE | 2019-12-24 00:16 | NUR ---
sent to Dr. MILLS PAGER ID: [phone] MESSAGE: Room 3011 Daniel Brito: Patient HR 120's-130's for last few hrs. 5 mg Metoprolol IV push given PO metoprolol 50 mg just given. DX: Right jugular thrombus. on heparin gtt Thanks, Karyna [phone]
[2019-12-24] MEDS ORDERED: digoxin 250mcg/ml 2ml ampule IV ONE (00:20)
[2019-12-24 02:00] VITALS: BP 120/88
[2019-12-24] MEDS: albuterol 2.5 MG/3 ML nebule NEB SCH ×4 (02:53→21:22)
[2019-12-24 03:07] LABS: BASOPHILS # (AUTO) 0.1 X10'3 (0-0.2); BASOPHILS % (AUTO) 1.1 % (0-1); EOSINOPHILS # (AUTO) 0.2 X10'3 (0-0.9); EOSINOPHILS % (AUTO) 2.2 % (0-6); HEMATOCRIT 39.6 % (42.0-52.0); HEMOGLOBIN 12.5 g/dl (14.0-17.9); LYMPHOCYTES % (AUTO) 17.6 % (21-51); MEAN CORPUSCULAR HEMOGLOBIN 26.1 PG (27.0-31.0); MEAN CORPUSCULAR HGB CONC 31.5 g/dL (33.0-36.5); MEAN CORPUSCULAR VOLUME 82.7 FL (78-98); MEAN PLATELET VOLUME 8.1 FL (7.4-10.4); MONOCYTES % (AUTO) 8.5 % (2-12); NEUTROPHILS % (AUTO) 70.6 % (42-75); PLATELET COUNT 312 X10'3 (140-440); RED BLOOD COUNT 4.79 X10'6 (4.70-6.10); WHITE BLOOD COUNT 11.3 X10'3 (4.5-11.0)
[2019-12-24 03:25] LABS: ALANINE AMINOTRANSFERASE 33 U/L (12-78); ALBUMIN 3.3 G/DL (3.4-5.0); ALBUMIN/GLOBULIN RATIO 1.1 (1.1-1.5); ALKALINE PHOSPHATASE 82 IU/L (46-116); ANION GAP 8 (8-16); ASPARTATE AMINO TRANSFERASE 34 U/L (10-37); BILIRUBIN,TOTAL 1.1 MG/DL (0.1-1.0); BLOOD UREA NITROGEN 47 MG/DL (7-18); BUN/CREATININE RATIO 20.6 (5.4-32.0); CALCIUM 9.3 MG/DL (8.5-10.1); CHLORIDE 101 MMOL/L (99-107); CREATININE 2.28 MG/DL (0.60-1.10); GLUCOSE 120 MG/DL (70-104); MAGNESIUM 2.4 MG/DL (1.5-2.4); PHOSPHORUS 5.6 MG/DL (2.3-4.5); POTASSIUM 4.2 MMOL/L (3.5-5.1); SODIUM 139 MMOL/L (135-145); TOTAL CARBON DIOXIDE 29.7 MMOL/L (24-32); TOTAL PROTEIN 6.4 G/DL (6.4-8.2); eGFR 31 ML/MIN
[2019-12-24] MEDS: heparin 25,000 UNIT/250ml bag 250 ML IV SCH (04:29)
--- NOTE | 2019-12-24 06:07 | NUR ---
Problems reprioritized. Patient report given, questions answered & plan of care reviewed with MOOSE Contreras.
--- NOTE | 2019-12-24 06:15 | NUR ---
Patient in room PCU 3011. I have received report from Karyna VIRK and had the opportunity to ask questions and assume patient care.
[2019-12-24 07:00] VITALS: BP 142/73
[2019-12-24] MEDS ORDERED: levoTHYROXINE 75mcg tablet PO SCH (07:00)
[2019-12-24] MEDS: lisinopril 5mg tablet PO SCH (07:38)
[2019-12-24] MEDS: metoprolol tartrate 50mg tablet PO SCH ×2 (07:39→20:35)
[2019-12-24] MEDS: furosemide 20MG tablet PO SCH (07:39)
[2019-12-24] MEDS: nicotine 14mg patch - 24hr TD SCH (07:40)
[2019-12-24] MEDS: docusate sod 100mg capsule PO SCH ×2 (07:40→20:35)
[2019-12-24] MEDS: budesonide 0.5mg/2ml UD nebule IH SCH ×2 (07:48→21:22)
[2019-12-24] MEDS: K and/or MAG REPLACEMENT MC SCH ×2 (08:00→20:00)
[2019-12-24 11:00] VITALS: BP 111/71
[2019-12-24 15:00] VITALS: BP 140/100
[2019-12-24 19:52] VITALS: BP 103/81
[2019-12-24 23:19] VITALS: BP 104/76
[2019-12-25] MEDS: heparin 25,000 UNIT/250ml bag 250 ML IV SCH (00:54)
[2019-12-25 03:20] VITALS: BP 134/85
[2019-12-25] MEDS: albuterol 2.5 MG/3 ML nebule NEB SCH ×3 (03:35→14:59)
[2019-12-25 04:59] LABS: BASOPHILS # (AUTO) 0.1 X10'3 (0-0.2); BASOPHILS % (AUTO) 1.2 % (0-1); EOSINOPHILS # (AUTO) 0.4 X10'3 (0-0.9); EOSINOPHILS % (AUTO) 3.4 % (0-6); HEMATOCRIT 41.6 % (42.0-52.0); HEMOGLOBIN 13.1 g/dl (14.0-17.9); LYMPHOCYTES # (AUTO) 2.2 X10'3 (1.1-4.8); LYMPHOCYTES % (AUTO) 19.6 % (21-51); MEAN CORPUSCULAR HEMOGLOBIN 26.3 PG (27.0-31.0); MEAN CORPUSCULAR HGB CONC 31.6 g/dL (33.0-36.5); MEAN CORPUSCULAR VOLUME 83.2 FL (78-98); MEAN PLATELET VOLUME 8.2 FL (7.4-10.4); MONOCYTES % (AUTO) 9.3 % (2-12); NEUTROPHILS # (AUTO) 7.5 X10'3 (1.8-7.7); NEUTROPHILS % (AUTO) 66.5 % (42-75); PLATELET COUNT 339 X10'3 (140-440); RED CELL DISTRIBUTION WIDTH 18.4 % (11.5-14.5); WHITE BLOOD COUNT 11.2 X10'3 (4.5-11.0)
[2019-12-25 05:20] LABS: ALANINE AMINOTRANSFERASE 28 U/L (12-78); ALBUMIN 3.4 G/DL (3.4-5.0); ALBUMIN/GLOBULIN RATIO 1.1 (1.1-1.5); ALKALINE PHOSPHATASE 81 IU/L (46-116); ANION GAP 7 (8-16); ASPARTATE AMINO TRANSFERASE 29 U/L (10-37); BILIRUBIN,TOTAL 1.2 MG/DL (0.1-1.0); BLOOD UREA NITROGEN 45 MG/DL (7-18); BUN/CREATININE RATIO 19.7 (5.4-32.0); CALCIUM 9.5 MG/DL (8.5-10.1); CHLORIDE 104 MMOL/L (99-107); CREATININE 2.29 MG/DL (0.60-1.10); GLUCOSE 96 MG/DL (70-104); MAGNESIUM 2.2 MG/DL (1.5-2.4); PHOSPHORUS 5.7 MG/DL (2.3-4.5); POTASSIUM 4.4 MMOL/L (3.5-5.1); SODIUM 141 MMOL/L (135-145); TOTAL CARBON DIOXIDE 30.4 MMOL/L (24-32); TOTAL PROTEIN 6.5 G/DL (6.4-8.2); eGFR 30 ML/MIN
[2019-12-25 06:00] VITALS: BP 135/105
--- NOTE | 2019-12-25 06:27 | NUR ---
Problems reprioritized. Patient report given, questions answered & plan of care reviewed with MOOSE Palacios.
--- NOTE | 2019-12-25 06:30 | NUR ---
Patient in room U 3011. I have received report from MOOSE DAN and had the opportunity to ask questions and assume patient care. Addendum: 12/25/19 at 0654 by Keith Green RN RECEIVED REPORT FROM MOOSE CHANEY.
[2019-12-25] MEDS ORDERED: levoTHYROXINE 100mcg tablet PO SCH (07:00)
[2019-12-25] MEDS: docusate sod 100mg capsule PO SCH (07:30)
[2019-12-25] MEDS: metoprolol tartrate 50mg tablet PO SCH (07:30)
[2019-12-25] MEDS: furosemide 20MG tablet PO SCH (07:30)
[2019-12-25] MEDS: nicotine 14mg patch - 24hr TD SCH (07:31)
[2019-12-25] MEDS: lisinopril 5mg tablet PO SCH (07:31)
[2019-12-25] MEDS: budesonide 0.5mg/2ml UD nebule IH SCH (08:00)
[2019-12-25] MEDS: K and/or MAG REPLACEMENT MC SCH (08:00)
[2019-12-25 11:00] VITALS: BP 148/105
[2019-12-25] MEDS ORDERED: APIX5TAB3 PO (11:01)
[2019-12-25] MEDS ORDERED: LEVO100T9 PO (11:01)
[2019-12-25] MEDS ORDERED: SPIR25TA5 PO (11:01)
--- NOTE | 2019-12-25 11:14 | NUR ---
PAGER ID: [phone] MESSAGE: DR. LESTER, PLEASE CALL TIFFANIE [phone] R/T [id number]/MIGUEL OLIVIER PLEASE.
[2019-12-25 15:00] VITALS: BP 130/93
== END 2019-12-25 16:05 | disposition home health service (06) | DRG 197 ==
LOC: ER 18:52 → ED HOLD 22:46 → PCU 3S 23:30
PROVIDERS: ADMIT Family Medicine; ATTEND Family Medicine
DX: I82.C11 Acute embolism and thrombosis of right internal jugular vein (principal); E11.22 Type 2 diabetes mellitus with diabetic chronic kidney disease; I42.0 Dilated cardiomyopathy; E66.01 Morbid (severe) obesity due to excess calories; I42.7 Cardiomyopathy due to drug and external agent; E03.9 Hypothyroidism, unspecified; F15.10 Other stimulant abuse, uncomplicated; F17.200 Nicotine dependence, unspecified, uncomplicated; T43.625A Adverse effect of amphetamines, initial encounter; I12.9 Hypertensive chronic kidney disease with stage 1 through stage 4 chronic kidney disease, or unspecified chronic kidney disease; I48.91 Unspecified atrial fibrillation; J44.9 Chronic obstructive pulmonary disease, unspecified; N18.9 Chronic kidney disease, unspecified; Z79.01 Long term (current) use of anticoagulants; Z85.47 Personal history of malignant neoplasm of testis; Y92.89 Other specified places as the place of occurrence of the external cause; I25.2 Old myocardial infarction
CPT/HCPCS: 36415; 80048; 80053; 80061; 80305; 81003; 83735; 84100; 84443; 84484; 85025; 85610; 85730; 87081; 93005; 93308; 93971; 94640; 94760; 96365; 97116; 97161; 97530; 99285; G0378; J1160; J1644; J3490; J7626

== ENCOUNTER 2020-01-31 14:59 | Inpatient (IN) | payer MEDICAID ==
[~2020-01-31] VITALS: Ht 185.4 cm; Wt 120.5 kg
[~2020-01-31 14:59] MED LIST changes: +APIX5TAB3 PO; -AZI25OT PO; -CARCD120C PO; +FURO20TA4 PO; -FURO40TA4 PO; -HYDR-3686 PO; +LEVO100T9 PO; -SPIR25TA PO; +SPIR25TA5 PO; -WARF1TAB83 PO
[2020-01-31 15:37] LABS: BASOPHILS # (AUTO) 0.1 X10'3 (0-0.2); BASOPHILS % (AUTO) 0.8 % (0-1); EOSINOPHILS # (AUTO) 0.2 X10'3 (0-0.9); EOSINOPHILS % (AUTO) 2.2 % (0-6); HEMATOCRIT 39.5 % (42.0-52.0); HEMOGLOBIN 12.4 g/dl (14.0-17.9); LYMPHOCYTES # (AUTO) 1.2 X10'3 (1.1-4.8); LYMPHOCYTES % (AUTO) 13.2 % (21-51); MEAN CORPUSCULAR HGB CONC 31.3 g/dL (33.0-36.5); MEAN CORPUSCULAR VOLUME 82.9 FL (78-98); MEAN PLATELET VOLUME 8.2 FL (7.4-10.4); NEUTROPHILS # (AUTO) 6.4 X10'3 (1.8-7.7); NEUTROPHILS % (AUTO) 72.8 % (42-75); PLATELET COUNT 267 X10'3 (140-440); RED BLOOD COUNT 4.76 X10'6 (4.70-6.10); RED CELL DISTRIBUTION WIDTH 18.2 % (11.5-14.5); WHITE BLOOD COUNT 8.8 X10'3 (4.5-11.0)
[2020-01-31 15:51] LABS: ALANINE AMINOTRANSFERASE 34 U/L (12-78); ALBUMIN 3.3 G/DL (3.4-5.0); ALBUMIN/GLOBULIN RATIO 1.1 (1.1-1.5); ALKALINE PHOSPHATASE 78 IU/L (46-116); ANION GAP 12 (8-16); ASPARTATE AMINO TRANSFERASE 33 U/L (10-37); BLOOD UREA NITROGEN 40 MG/DL (7-18); BUN/CREATININE RATIO 17.2 (5.4-32.0); CALCIUM 8.4 MG/DL (8.5-10.1); CHLORIDE 104 MMOL/L (99-107); CREATININE 2.32 MG/DL (0.60-1.10); GLUCOSE 127 MG/DL (70-104); POTASSIUM 3.7 MMOL/L (3.5-5.1); SODIUM 140 MMOL/L (135-145); TOTAL PROTEIN 6.2 G/DL (6.4-8.2); eGFR 30 ML/MIN
[2020-01-31] MEDS ORDERED: furosemide 10 MG/1 ML 10ml inj IV ONE (16:00)
--- NOTE | 2020-01-31 16:21 | NUR ---
pt ambulated to bathroom for bm. short distance exacerbated sob and increased cp. Discussed with danita robb; new order for morphine and zofran received.
[2020-01-31] MEDS ORDERED: morphine 4 MG/ML inj SYRINge IV ONE (16:25)
[2020-01-31] MEDS ORDERED: ondansetron/PF 4mg/2ml inj IV ONE (16:25)
[2020-01-31] MEDS ORDERED: diltiazem 5mg/ml 5ml inj. IV ONE (17:25)
[2020-01-31] MEDS ORDERED: APIX5TAB3 PO (18:00)
[2020-01-31] MEDS ORDERED: LEVO100T9 PO (18:00)
[2020-01-31] MEDS ORDERED: FURO20TA4 PO (18:00)
[2020-01-31] MEDS ORDERED: LISI-604 PO (18:00)
[2020-01-31] MEDS ORDERED: SPIR50TA5 PO (18:00)
[2020-01-31] MEDS ORDERED: magnesium 2GM in 50ml NS 50 ML IV PRN (18:25)
[2020-01-31] MEDS ORDERED: potassium CL 10mEq/100ml bag 100 ML IV PRN ×2 (18:25)
[2020-01-31] MEDS ORDERED: ondansetron/PF 4mg/2ml inj IV PRN (18:25)
[2020-01-31] MEDS ORDERED: HYDROcodone/acetaminophen 5mg/325mg tablet PO PRN (18:25)
[2020-01-31] MEDS ORDERED: magnesium 4gm in 100ml NS 100 ML IV PRN (18:25)
[2020-01-31] MEDS ORDERED: acetaminophen 325mg tablet PO PRN ×2 (18:25)
[2020-01-31] MEDS ORDERED: potassium Cl 20 mEq SR tablet PO PRN ×2 (18:25)
[2020-01-31] MEDS ORDERED: morphine 2 MG/ML inj. syringe IV PRN (18:25)
[2020-01-31] MEDS ORDERED: magnesium Cl slow-release 64mg tablet PO PRN (18:25)
[2020-01-31] MEDS ORDERED: albuterol 2.5 MG/3 ML nebule NEB PRN (18:30)
[2020-01-31] MEDS ORDERED: LIDOcaine 2% 10ml TOPICAL JELLY (Urojet) TP ONE (18:40)
--- NOTE | 2020-01-31 18:45 | NUR ---
yari from cardiovascular lab here to do an echo on the pt. pt reports gunner leg pain that's chronic. he was offered a norco, pt states he doesn't want anything for pain.
[2020-01-31] MEDS: diltiazem 30mg tablet PO PRN (19:58)
--- NOTE | 2020-01-31 19:59 | NUR ---
walter wrappes applied to bilateral feet
[2020-01-31] MEDS: K and/or MAG REPLACEMENT MC SCH (20:00)
--- NOTE | 2020-01-31 20:00 | NUR ---
cartizem given for a heart rate of 134
--- NOTE | 2020-01-31 20:08 | NUR ---
pt with ipa 3020. currently eating his dinner. reports pain to his right foot of 6 out of 10.
[2020-01-31 20:18] VITALS: BP 116/90
--- NOTE | 2020-01-31 20:18 | NUR ---
[place] [facility] [facility] [place], pt denies any SOB or chest pain at this time, will continue to monitor pt closely
[2020-01-31] MEDS ORDERED: temazepam 15mg capsule PO PRN (21:00)
[2020-01-31] MEDS: furosemide 10 MG/1 ML 10ml inj IV SCH (21:34)
[2020-01-31] MEDS: docusate sod 100mg capsule PO SCH (21:34)
[2020-01-31] MEDS: heparin, porcine 5000 units/ml vial SQ SCH (21:34)
[2020-01-31] MEDS: apixaban 5mg tablet PO SCH (21:35)
[2020-01-31 22:00] VITALS: BP 124/92
[2020-01-31] MEDS ORDERED: diltiazem 30mg tablet PO ONE (22:45)
--- NOTE | 2020-01-31 22:45 | NUR ---
pt HR still sustaining in the 130's, notified, order for cardizem PO 30mg once, will continue to monitor pt closely
[2020-02-01] VITALS (12 sets, daily range): BP systolic 100–129; BP diastolic 59–96
[2020-02-01 04:09] LABS: BASOPHILS # (AUTO) 0.1 X10'3 (0-0.2); BASOPHILS % (AUTO) 1.2 % (0-1); EOSINOPHILS # (AUTO) 0.3 X10'3 (0-0.9); EOSINOPHILS % (AUTO) 2.6 % (0-6); HEMATOCRIT 40.9 % (42.0-52.0); HEMOGLOBIN 12.8 g/dl (14.0-17.9); LYMPHOCYTES # (AUTO) 1.8 X10'3 (1.1-4.8); LYMPHOCYTES % (AUTO) 17.8 % (21-51); MEAN CORPUSCULAR HGB CONC 31.3 g/dL (33.0-36.5); MEAN CORPUSCULAR VOLUME 83.2 FL (78-98); MEAN PLATELET VOLUME 8.5 FL (7.4-10.4); MONOCYTES # (AUTO) 1.1 X10'3 (0-0.9); MONOCYTES % (AUTO) 10.8 % (2-12); NEUTROPHILS # (AUTO) 6.9 X10'3 (1.8-7.7); NEUTROPHILS % (AUTO) 67.6 % (42-75); PLATELET COUNT 273 X10'3 (140-440); RED BLOOD COUNT 4.92 X10'6 (4.70-6.10); RED CELL DISTRIBUTION WIDTH 17.9 % (11.5-14.5); WHITE BLOOD COUNT 10.2 X10'3 (4.5-11.0)
[2020-02-01 04:16] LABS: ALANINE AMINOTRANSFERASE 32 U/L (12-78); ALBUMIN 2.8 G/DL (3.4-5.0); ALBUMIN/GLOBULIN RATIO 0.7 (1.1-1.5); ALKALINE PHOSPHATASE 79 IU/L (46-116); ANION GAP 10 (8-16); ASPARTATE AMINO TRANSFERASE 33 U/L (10-37); BLOOD UREA NITROGEN 39 MG/DL (7-18); CALCIUM 8.6 MG/DL (8.5-10.1); CHLORIDE 103 MMOL/L (99-107); GLUCOSE 138 MG/DL (70-104); SODIUM 140 MMOL/L (135-145); TOTAL CARBON DIOXIDE 27.5 MMOL/L (24-32); TOTAL PROTEIN 6.6 G/DL (6.4-8.2); eGFR 30 ML/MIN
[2020-02-01 04:17] LABS: CHOL/HDL RATIO 2.4 (0.00-4.99); CHOLESTEROL 119 MG/DL (0-200); HDL CHOLESTEROL 49 MG/DL (35-60); LDL CHOLESTEROL 58 MG/DL (50-100); MAGNESIUM 2.2 MG/DL (1.5-2.4); TRIGLYCERIDES 78 MG/DL (20-135)
--- NOTE | 2020-02-01 06:15 | NUR ---
Patient in room PCU 3020. I have received report from MOOSE Ruano and had the opportunity to ask questions and assume patient care. patient sleeping in bed, bed locked and low, call light in raech, no acute distrss, will continue to monitor.
[2020-02-01] MEDS: furosemide 10 MG/1 ML 10ml inj IV SCH ×2 (07:06→20:29)
[2020-02-01] MEDS: apixaban 5mg tablet PO SCH ×2 (07:07→20:29)
[2020-02-01] MEDS: heparin, porcine 5000 units/ml vial SQ SCH ×2 (07:07→20:30)
[2020-02-01] MEDS: diltiazem 30mg tablet PO PRN (07:07)
[2020-02-01] MEDS: spironolactone 50 MG tablet PO SCH (07:07)
[2020-02-01] MEDS: lisinopril 5mg tablet PO SCH (07:09)
[2020-02-01] MEDS: nicotine 14mg patch - 24hr TD SCH (07:17)
[2020-02-01] MEDS: docusate sod 100mg capsule PO SCH ×2 (08:00→20:29)
[2020-02-01] MEDS: K and/or MAG REPLACEMENT MC SCH ×2 (08:00→20:00)
[2020-02-01] MEDS ORDERED: levoTHYROXINE 100mcg tablet PO SCH (08:00)
[2020-02-01] MEDS ORDERED: metoprolol tartrate 1mg/ml inj IV PRN (08:35)
[2020-02-01] MEDS ORDERED: regadenoson 0.4mg/5ml syringe IV PRN (08:35)
[2020-02-01] MEDS ORDERED: nitroGLYCERIN 0.4mg SUBLingual tab SL PRN (08:35)
[2020-02-01] MEDS ORDERED: aminophylline 250mg/10ml inj. IV PRN (08:35)
[2020-02-01] MEDS: normal saline 1000ml 1,000 ML IV SCH (08:35)
--- NOTE | 2020-02-01 09:24 | NUR ---
PAGER ID: [phone] MESSAGE: MOOSE Ferrer, ext [phone] jenna Khan I held levothyroxine as patient states he does not take it at home, he was in a-flutter in 130s and no thyroid panel had been done.
--- NOTE | 2020-02-01 13:11 | NUR ---
Pt's yao cath removed. 10 ml of saline removed from balloon tip, tip intact. pt tolerated well, no complaints of pain.
--- NOTE | 2020-02-01 15:20 | NUR ---
PAGER ID: [phone] MESSAGE: Carissa Allan RN, ext [phone], Bill, do you still want NS@50 along with the 40mg Lasix BID? EF is 34% per lexiscan
--- NOTE | 2020-02-01 18:07 | NUR ---
Problems reprioritized. Patient report given, questions answered & plan of care reviewed with MOOSE Ruano.
[2020-02-02] MEDS: diltiazem 30mg tablet PO PRN ×2 (00:53→07:38)
[2020-02-02 02:00] VITALS: BP 115/88
[2020-02-02] MEDS: normal saline 1000ml 1,000 ML IV SCH (04:35)
[2020-02-02 05:56] LABS: BASOPHILS # (AUTO) 0.1 X10'3 (0-0.2); BASOPHILS % (AUTO) 0.8 % (0-1); EOSINOPHILS # (AUTO) 0.3 X10'3 (0-0.9); EOSINOPHILS % (AUTO) 2.6 % (0-6); HEMOGLOBIN 12.9 g/dl (14.0-17.9); LYMPHOCYTES # (AUTO) 1.2 X10'3 (1.1-4.8); LYMPHOCYTES % (AUTO) 11.1 % (21-51); MEAN CORPUSCULAR HEMOGLOBIN 26.5 PG (27.0-31.0); MEAN CORPUSCULAR HGB CONC 32.3 g/dL (33.0-36.5); MEAN CORPUSCULAR VOLUME 82.1 FL (78-98); MEAN PLATELET VOLUME 8.3 FL (7.4-10.4); MONOCYTES # (AUTO) 1.1 X10'3 (0-0.9); MONOCYTES % (AUTO) 10.6 % (2-12); NEUTROPHILS % (AUTO) 74.9 % (42-75); PLATELET COUNT 300 X10'3 (140-440); RED BLOOD COUNT 4.88 X10'6 (4.70-6.10); RED CELL DISTRIBUTION WIDTH 17.6 % (11.5-14.5); WHITE BLOOD COUNT 10.7 X10'3 (4.5-11.0)
[2020-02-02 06:00] VITALS: BP 110/89
[2020-02-02 06:15] LABS: ALANINE AMINOTRANSFERASE 30 U/L (12-78); ALBUMIN 3.3 G/DL (3.4-5.0); ALBUMIN/GLOBULIN RATIO 1.1 (1.1-1.5); ALKALINE PHOSPHATASE 74 IU/L (46-116); ANION GAP 6 (8-16); ASPARTATE AMINO TRANSFERASE 28 U/L (10-37); BILIRUBIN,TOTAL 0.9 MG/DL (0.1-1.0); BLOOD UREA NITROGEN 41 MG/DL (7-18); BUN/CREATININE RATIO 20.8 (5.4-32.0); CALCIUM 8.9 MG/DL (8.5-10.1); CHLORIDE 103 MMOL/L (99-107); CREATININE 1.97 MG/DL (0.60-1.10); GLUCOSE 103 MG/DL (70-104); MAGNESIUM 2.1 MG/DL (1.5-2.4); POTASSIUM 3.8 MMOL/L (3.5-5.1); SODIUM 140 MMOL/L (135-145); TOTAL CARBON DIOXIDE 31.3 MMOL/L (24-32); TOTAL PROTEIN 6.2 G/DL (6.4-8.2); eGFR 36 ML/MIN
--- NOTE | 2020-02-02 06:30 | NUR ---
Problems reprioritized. Patient report given, questions answered & plan of care reviewed with Carissa VIRK.
--- NOTE | 2020-02-02 06:30 | NUR ---
Patient in room PCU 3020. I have received report from MOOSE Ruano and had the opportunity to ask questions and assume patient care. Patient currently resting in bed, bed locked and low, call light in reach, no acute distress, will continue to monitor.
[2020-02-02] MEDS: furosemide 10 MG/1 ML 10ml inj IV SCH (07:37)
[2020-02-02] MEDS: heparin, porcine 5000 units/ml vial SQ SCH (07:37)
[2020-02-02] MEDS: nicotine 14mg patch - 24hr TD SCH (07:37)
[2020-02-02] MEDS: lisinopril 5mg tablet PO SCH (07:38)
[2020-02-02] MEDS: spironolactone 50 MG tablet PO SCH (07:38)
[2020-02-02] MEDS: apixaban 5mg tablet PO SCH (07:38)
[2020-02-02] MEDS: docusate sod 100mg capsule PO SCH (07:46)
[2020-02-02] MEDS: K and/or MAG REPLACEMENT MC SCH (07:53)
[2020-02-02] MEDS ORDERED: levoTHYROXINE 125mcg tablet PO SCH (08:00)
--- NOTE | 2020-02-02 10:31 | NUR ---
PAGER ID: [phone] MESSAGE: MOOSE Ferrer, ext [phone], jenna Khan MRSA+ in Nares, he has open wound on his leg, do you want a wound culture?
--- NOTE | 2020-02-02 10:46 | NUR ---
PAGER ID: [phone] MESSAGE: MOOSE Ferrer, ext [phone], Bill, patient c/o acute muscle cramps BLE, states pain worsens with standing, both legs 3+ pitting edema
[2020-02-02 11:00] VITALS: BP 120/80
[2020-02-02] MEDS ORDERED: LEVO125T8 PO (11:04)
--- NOTE | 2020-02-02 12:07 | NUR ---
Discharge orders received, educated patient on new prescription and counseled patient to stop using methamphetamine, Instructed patient to follow up with primary care doctor within a week. Provided patient with drsg change supplies and instructed patient on dressing changes. Patient verbalized understanding of teaching. IV removed, catheter tip intact, hemostasis achieved, telemetry removed. MTM contacted to arrange for patient transport to home. Waiting for callback.
--- NOTE | 2020-02-02 12:56 | NUR ---
Patient transport arrived, patient able to ambulate but taken down in wheelchair by [facility], patient was able to transfer self to vehicle, belongings sent with patient. Stable at time of discharge. Addendum: 02/02/20 at 1300 by Carissa Philip RN We were told transport had arrived but after patient was taken down to [facility] received phone call that transport would not arrive for another hour. will inform patient, he prefers to wait in [facility].
== END 2020-02-02 12:41 | disposition home or self-care (01) | DRG 205 ==
LOC: ER 15:00 → ED HOLD 18:22 → PCU 3S 21:18
PROVIDERS: ADMIT Internal Medicine; ATTEND Internal Medicine
PROC: 4A02XM4 Measurement of Cardiac Total Activity, External Approach (ICD-10-PCS; principal; 2020-02-01)
PROC: 3E073KZ Introduction of Other Diagnostic Substance into Coronary Artery, Percutaneous Approach (ICD-10-PCS; 2020-02-01)
DX: I42.0 Dilated cardiomyopathy (principal); I13.0 Hypertensive heart and chronic kidney disease with heart failure and stage 1 through stage 4 chronic kidney disease, or unspecified chronic kidney disease; I50.9 Heart failure, unspecified; E66.01 Morbid (severe) obesity due to excess calories; N18.3 Chronic kidney disease, stage 3 (moderate); R06.03 Acute respiratory distress; I48.91 Unspecified atrial fibrillation; F15.90 Other stimulant use, unspecified, uncomplicated; F17.200 Nicotine dependence, unspecified, uncomplicated; I25.10 Atherosclerotic heart disease of native coronary artery without angina pectoris; J45.909 Unspecified asthma, uncomplicated; Z86.711 Personal history of pulmonary embolism; Z86.718 Personal history of other venous thrombosis and embolism; Z88.8 Allergy status to other drugs, medicaments and biological substances; Z68.35 Body mass index [BMI] 35.0-35.9, adult; Z71.6 Tobacco abuse counseling
CPT/HCPCS: 36415; 71045; 78452; 80053; 80061; 83735; 83880; 84439; 84443; 84484; 85025; 87081; 93005; 93017; 93306; 96374; 99285; A9500; G0378; J1644; J1940; J2270; J2405; J2785; J3490; J7030

== ENCOUNTER 2020-02-12 16:48 | Inpatient (IN) | payer MEDICAID ==
[~2020-02-12] VITALS: Ht 185.4 cm; Wt 121.0 kg
[~2020-02-12 16:48] MED LIST changes: -ALBU8.5H8 INH; -ASPI-1130; -BUDE10.22 INH; -LEVO100T9 PO; +LEVO125T8 PO; -METO50TA16 PO; -SPIR25TA5 PO; +SPIR50TA5 PO
[2020-02-12] MEDS ORDERED: heparin 25,000 UNIT/250ml bag 250 ML IV SCH (17:09)
[2020-02-12] MEDS ORDERED: heparin 10,000 units/1 ML INJ IV PRN (17:10)
[2020-02-12 17:21] LABS: CLARITY,URINE CLEAR (Clear); COLOR,URINE YELLOW (Yellow); GLUCOSE, URINE NEGATIVE (Neg); KETONES,URINE NEGATIVE (Neg); LEUKOCYTE ESTERASE ,URINE NEGATIVE (Neg); NITRITES, URINE NEGATIVE (Neg); OCCULT BLOOD,URINE NEGATIVE (Neg); PH,URINE 5.5 (4.8-8.0); PROTEIN,URINE NEGATIVE (Neg); UA COLLECTION TYPE FOLEY CATH; UROBILINOGEN,URINE 0.2 E.U/dL (0.2-1.0)
[2020-02-12 17:21] LABS: HEMOGLOBIN 13.9 g/dl (14.0-17.9)
[2020-02-12 17:22] LABS: BASOPHILS # (AUTO) 0.1 X10'3 (0-0.2); BASOPHILS % (AUTO) 0.9 % (0-1); EOSINOPHILS % (AUTO) 0.1 % (0-6); HEMATOCRIT 44.5 % (42.0-52.0); LYMPHOCYTES # (AUTO) 1.6 X10'3 (1.1-4.8); LYMPHOCYTES % (AUTO) 17.2 % (21-51); MEAN CORPUSCULAR HEMOGLOBIN 26.2 PG (27.0-31.0); MEAN CORPUSCULAR HGB CONC 31.3 g/dL (33.0-36.5); MEAN CORPUSCULAR VOLUME 83.5 FL (78-98); MEAN PLATELET VOLUME 9.1 FL (7.4-10.4); MONOCYTES # (AUTO) 0.9 X10'3 (0-0.9); MONOCYTES % (AUTO) 9.5 % (2-12); NEUTROPHILS # (AUTO) 6.7 X10'3 (1.8-7.7); NEUTROPHILS % (AUTO) 72.3 % (42-75); PLATELET COUNT 275 X10'3 (140-440); RED BLOOD COUNT 5.33 X10'6 (4.70-6.10); RED CELL DISTRIBUTION WIDTH 18.3 % (11.5-14.5); WHITE BLOOD COUNT 9.3 X10'3 (4.5-11.0)
[2020-02-12 17:24] LABS: ALANINE AMINOTRANSFERASE 86 U/L (12-78); ALBUMIN 3.7 G/DL (3.4-5.0); ALBUMIN/GLOBULIN RATIO 1.3 (1.1-1.5); ALKALINE PHOSPHATASE 97 IU/L (46-116); ANION GAP 11 (8-16); ASPARTATE AMINO TRANSFERASE 79 U/L (10-37); BILIRUBIN,TOTAL 1.8 MG/DL (0.1-1.0); BLOOD UREA NITROGEN 47 MG/DL (7-18); BUN/CREATININE RATIO 18.9 (5.4-32.0); CALCIUM 8.9 MG/DL (8.5-10.1); CHLORIDE 102 MMOL/L (99-107); CREATININE 2.49 MG/DL (0.60-1.10); GLUCOSE 113 MG/DL (70-104); SODIUM 137 MMOL/L (135-145); TOTAL CARBON DIOXIDE 23.7 MMOL/L (24-32); TOTAL PROTEIN 6.6 G/DL (6.4-8.2); eGFR 28 ML/MIN
[2020-02-12 17:29] LABS: POTASSIUM 6.1 MMOL/L (3.5-5.1)
[2020-02-12 17:36] LABS: PARTIAL THROMBOPLASTIN TIME 44 SECONDS (22-32)
[2020-02-12] MEDS ORDERED: APIX5TAB3 PO (18:37)
[2020-02-12] MEDS ORDERED: mag hydrox/Alum hydrox/simeth 30ml oral suspension PO PRN (20:05)
[2020-02-12] MEDS ORDERED: acetaminophen 325mg tablet PO PRN (20:05)
[2020-02-12] MEDS ORDERED: magnesium hydroxide 30ml (MOM) UD suspension PO PRN (20:05)
[2020-02-12] MEDS ORDERED: ondansetron/PF 4mg/2ml inj IV PRN (20:05)
--- NOTE | 2020-02-12 21:21 | NUR ---
Patient got on the floor at 2044. Patient was on heparin drip upon arrival. Called Dr. Choi to confirm that has discontinued the patient's heparin drip, and he acknowledged it and confirmed that he discontinued it. Patient is alert, oriented, no shortness of breath or chest pain. Resting at bedside
[2020-02-12] MEDS: metoprolol tartrate 50mg tablet PO SCH (21:57)
[2020-02-12 22:00] VITALS: BP 119/78
[2020-02-13 02:00] VITALS: BP 104/72
[2020-02-13 04:15] LABS: BASOPHILS # (AUTO) 0.1 X10'3 (0-0.2); EOSINOPHILS # (AUTO) 0.1 X10'3 (0-0.9); EOSINOPHILS % (AUTO) 0.9 % (0-6); HEMOGLOBIN 13.7 g/dl (14.0-17.9); LYMPHOCYTES # (AUTO) 1.5 X10'3 (1.1-4.8); LYMPHOCYTES % (AUTO) 15.4 % (21-51); MEAN CORPUSCULAR HGB CONC 31.1 g/dL (33.0-36.5); MEAN CORPUSCULAR VOLUME 83.7 FL (78-98); MONOCYTES # (AUTO) 1.3 X10'3 (0-0.9); MONOCYTES % (AUTO) 13.4 % (2-12); NEUTROPHILS % (AUTO) 69.3 % (42-75); PLATELET COUNT 291 X10'3 (140-440); RED BLOOD COUNT 5.26 X10'6 (4.70-6.10); RED CELL DISTRIBUTION WIDTH 18.7 % (11.5-14.5)
[2020-02-13 04:31] LABS: ALANINE AMINOTRANSFERASE 92 U/L (12-78); ALBUMIN 3.5 G/DL (3.4-5.0); ALBUMIN/GLOBULIN RATIO 1.2 (1.1-1.5); ALKALINE PHOSPHATASE 94 IU/L (46-116); ANION GAP 11 (8-16); ASPARTATE AMINO TRANSFERASE 80 U/L (10-37); BILIRUBIN,TOTAL 1.3 MG/DL (0.1-1.0); BLOOD UREA NITROGEN 52 MG/DL (7-18); BUN/CREATININE RATIO 19.5 (5.4-32.0); CHLORIDE 102 MMOL/L (99-107); CREATININE 2.67 MG/DL (0.60-1.10); GLUCOSE 106 MG/DL (70-104); POTASSIUM 5.6 MMOL/L (3.5-5.1); SODIUM 136 MMOL/L (135-145); TOTAL PROTEIN 6.5 G/DL (6.4-8.2); eGFR 25 ML/MIN
[2020-02-13 06:00] VITALS: BP 123/84
--- NOTE | 2020-02-13 06:22 | NUR ---
Problems reprioritized. Patient report given to Sara, questions answered & plan of care reviewed with .
--- NOTE | 2020-02-13 06:30 | NUR ---
Patient in room MED 311. I have received report from Matt VRIK and had the opportunity to ask questions and assume patient care.
[2020-02-13] MEDS: levoTHYROXINE 125mcg tablet PO SCH (07:54)
[2020-02-13] MEDS: apixaban 2.5mg tablet PO SCH ×2 (07:55→19:47)
[2020-02-13] MEDS: metoprolol tartrate 50mg tablet PO SCH ×2 (07:55→19:48)
[2020-02-13] MEDS ORDERED: furosemide 10 MG/1 ML 10ml inj IV SCH (08:00)
--- NOTE | 2020-02-13 08:00 | NUR ---
Assessment done prior to giving report to IMMIGRATION JUDGE for room change. Pt is A&O x4. Has 4+ LE pitting edema and 3+ upper extremity edema. Lungs are CTA. VSS Sinus Tachy rhythm.
--- NOTE | 2020-02-13 09:00 | NUR ---
I have received report from MOOSE Lea and had the opportunity to ask questions.
--- NOTE | 2020-02-13 09:03 | NUR ---
Problems reprioritized. Patient report given, questions answered & plan of care reviewed with Eda RN PCU.
--- NOTE | 2020-02-13 09:14 | NUR ---
Patient arrived from ACCE unit by wheelchair. Ambulated to bed with 2 person assist. Oriented to room, bed locked and lowered, call light within reach, non skid socks on. First set of vitals BP 124/63 HR 64 R 18 02 97% 3L NC pain 0/10. All needs met at this time.
[2020-02-13 11:00] VITALS: BP 108/71
[2020-02-13 15:00] VITALS: BP 133/79
--- NOTE | 2020-02-13 17:24 | NUR ---
Paged Dr Henson regarding pt having a Yao in from [facility], but no order. PAGER ID: [phone] MESSAGE: Re: Daniel Khan Rm 4137 Pt has a yao from [facility], there is no order, would you like me to place one? Thanks Carissa Page
[2020-02-13 18:00] VITALS: BP 117/80
--- NOTE | 2020-02-13 18:05 | NUR ---
Received telephone order from Dr Henson to place a Bowen protocol to monitor critically ill I and O's.
--- NOTE | 2020-02-13 18:22 | NUR ---
Problems reprioritized. Patient report given, questions answered & plan of care reviewed with MOOSE Watson. Pt sitting up in high fowlers eating dinner independently. All needs met at this time.
--- NOTE | 2020-02-13 18:23 | NUR ---
Patient in room PCU 3009. I have received report from Carissa Silveira RN and had the opportunity to ask questions and assume patient care.
[2020-02-13] MEDS: furosemide 10 MG/1 ML 10ml inj IV SCH (19:48)
[2020-02-13 22:00] VITALS: BP 123/78
[2020-02-14 02:00] VITALS: BP 126/104
[2020-02-14 06:00] VITALS: BP 149/80
--- NOTE | 2020-02-14 06:19 | NUR ---
Problems reprioritized. Patient report given, questions answered & plan of care reviewed with Carissa Silveira RN.
--- NOTE | 2020-02-14 06:20 | NUR ---
Patient in room PCU 3009. I have received report from MOOSE Watson and had the opportunity to ask questions and assume patient care. Patient getting lab drawn.
[2020-02-14 06:30] LABS: BASOPHILS # (AUTO) 0.1 X10'3 (0-0.2); BASOPHILS % (AUTO) 0.7 % (0-1); EOSINOPHILS # (AUTO) 0.1 X10'3 (0-0.9); EOSINOPHILS % (AUTO) 1.1 % (0-6); HEMATOCRIT 41.8 % (42.0-52.0); HEMOGLOBIN 13.3 g/dl (14.0-17.9); LYMPHOCYTES # (AUTO) 1.2 X10'3 (1.1-4.8); LYMPHOCYTES % (AUTO) 12.5 % (21-51); MEAN CORPUSCULAR HEMOGLOBIN 26.4 PG (27.0-31.0); MEAN CORPUSCULAR HGB CONC 31.9 g/dL (33.0-36.5); MEAN CORPUSCULAR VOLUME 82.6 FL (78-98); MEAN PLATELET VOLUME 8.9 FL (7.4-10.4); MONOCYTES # (AUTO) 1.4 X10'3 (0-0.9); MONOCYTES % (AUTO) 14.5 % (2-12); NEUTROPHILS # (AUTO) 6.8 X10'3 (1.8-7.7); NEUTROPHILS % (AUTO) 71.2 % (42-75); PLATELET COUNT 250 X10'3 (140-440); RED BLOOD COUNT 5.06 X10'6 (4.70-6.10); RED CELL DISTRIBUTION WIDTH 18.7 % (11.5-14.5); WHITE BLOOD COUNT 9.6 X10'3 (4.5-11.0)
[2020-02-14 06:53] LABS: ALANINE AMINOTRANSFERASE 94 U/L (12-78); ALBUMIN 3.4 G/DL (3.4-5.0); ALBUMIN/GLOBULIN RATIO 1.1 (1.1-1.5); ALKALINE PHOSPHATASE 88 IU/L (46-116); ANION GAP 10 (8-16); ASPARTATE AMINO TRANSFERASE 68 U/L (10-37); BLOOD UREA NITROGEN 52 MG/DL (7-18); BUN/CREATININE RATIO 24.1 (5.4-32.0); CALCIUM 9.2 MG/DL (8.5-10.1); CHLORIDE 102 MMOL/L (99-107); CREATININE 2.16 MG/DL (0.60-1.10); GLUCOSE 99 MG/DL (70-104); POTASSIUM 4.5 MMOL/L (3.5-5.1); SODIUM 140 MMOL/L (135-145); TOTAL CARBON DIOXIDE 28.3 MMOL/L (24-32); TOTAL PROTEIN 6.4 G/DL (6.4-8.2); eGFR 33 ML/MIN
[2020-02-14 08:20] LABS: ANISOCYTOSIS 2+
[2020-02-14 08:21] LABS: POLYCHROMASIA FEW
[2020-02-14 08:24] LABS: PLATELET ESTIMATE NORMAL
[2020-02-14] MEDS: furosemide 10 MG/1 ML 10ml inj IV SCH ×2 (08:50→20:55)
[2020-02-14] MEDS: apixaban 2.5mg tablet PO SCH ×2 (08:51→19:05)
[2020-02-14] MEDS: levoTHYROXINE 125mcg tablet PO SCH (08:51)
[2020-02-14] MEDS: metoprolol tartrate 50mg tablet PO SCH (08:51)
[2020-02-14 11:00] VITALS: BP 125/92
[2020-02-14 15:00] VITALS: BP 127/97
[2020-02-14 18:00] VITALS: BP 116/101
--- NOTE | 2020-02-14 18:19 | NUR ---
Problems reprioritized. Patient report given, questions answered & plan of care reviewed with MOOSE Browne. Pt eating dinner independently. All needs met at thi time.
[2020-02-14] MEDS: carVEDilol 12.5mg tablet PO SCH (19:05)
[2020-02-14 22:00] VITALS: BP 102/62
[2020-02-15 02:00] VITALS: BP 121/86
[2020-02-15 06:00] VITALS: BP 109/78
--- NOTE | 2020-02-15 06:05 | NUR ---
Patient in room PCU 3009. I have received report from MOOSE Browne and had the opportunity to ask questions and assume patient care.
[2020-02-15 06:37] LABS: BASOPHILS # (AUTO) 0.1 X10'3 (0-0.2); BASOPHILS % (AUTO) 0.8 % (0-1); EOSINOPHILS # (AUTO) 0.1 X10'3 (0-0.9); EOSINOPHILS % (AUTO) 1.5 % (0-6); HEMATOCRIT 40.7 % (42.0-52.0); HEMOGLOBIN 12.9 g/dl (14.0-17.9); LYMPHOCYTES # (AUTO) 1.1 X10'3 (1.1-4.8); LYMPHOCYTES % (AUTO) 11.7 % (21-51); MEAN CORPUSCULAR HGB CONC 31.7 g/dL (33.0-36.5); MEAN CORPUSCULAR VOLUME 82.1 FL (78-98); MEAN PLATELET VOLUME 8.8 FL (7.4-10.4); MONOCYTES # (AUTO) 1.1 X10'3 (0-0.9); MONOCYTES % (AUTO) 12.4 % (2-12); NEUTROPHILS # (AUTO) 6.8 X10'3 (1.8-7.7); NEUTROPHILS % (AUTO) 73.6 % (42-75); PLATELET COUNT 252 X10'3 (140-440); RED BLOOD COUNT 4.96 X10'6 (4.70-6.10); RED CELL DISTRIBUTION WIDTH 18.3 % (11.5-14.5); WHITE BLOOD COUNT 9.2 X10'3 (4.5-11.0)
[2020-02-15 07:07] LABS: ALANINE AMINOTRANSFERASE 84 U/L (12-78); ALBUMIN 3.2 G/DL (3.4-5.0); ALBUMIN/GLOBULIN RATIO 1.1 (1.1-1.5); ALKALINE PHOSPHATASE 84 IU/L (46-116); ANION GAP 7 (8-16); ASPARTATE AMINO TRANSFERASE 53 U/L (10-37); BILIRUBIN,TOTAL 0.9 MG/DL (0.1-1.0); BLOOD UREA NITROGEN 52 MG/DL (7-18); BUN/CREATININE RATIO 22.9 (5.4-32.0); CALCIUM 8.8 MG/DL (8.5-10.1); CHLORIDE 104 MMOL/L (99-107); CREATININE 2.27 MG/DL (0.60-1.10); GLUCOSE 107 MG/DL (70-104); POTASSIUM 4.4 MMOL/L (3.5-5.1); SODIUM 141 MMOL/L (135-145); TOTAL CARBON DIOXIDE 30.1 MMOL/L (24-32); TOTAL PROTEIN 6.2 G/DL (6.4-8.2); eGFR 31 ML/MIN
[2020-02-15] MEDS: furosemide 10 MG/1 ML 10ml inj IV SCH (09:06)
[2020-02-15] MEDS: apixaban 2.5mg tablet PO SCH (09:06)
[2020-02-15] MEDS: levoTHYROXINE 125mcg tablet PO SCH (09:06)
[2020-02-15] MEDS: carVEDilol 12.5mg tablet PO SCH (09:06)
[2020-02-15 11:00] VITALS: BP 101/74
--- NOTE | 2020-02-15 12:45 | NUR ---
Discontinued yao catheter with no complication, encouraged pt to void [id number]. Will continue to monitor for voiding, abdominal distention and discomfort.
[2020-02-15] MEDS ORDERED: FURO20TA4 PO (12:50)
[2020-02-15] MEDS ORDERED: CARV-50 PO (12:50)
--- NOTE | 2020-02-15 16:04 | NUR ---
Patient stable for discharge per MD orders. All instructions were given, questions were answered. All belongings were collected and sent with patient. Pt voided post yao discontinue. PIV discontinued, cannula intact. Tele discontinued, telephone service adviser notified. Informed pt to follow up with PCP within 1 week. New prescription sent to [facility] in [place], [place]. Instructed pt the importance of following up, and contacting community resources to help with addictions. Pt wheeled to [id number], assisted into [employer] vehicle.
== END 2020-02-15 16:04 | disposition home or self-care (01) | DRG 190 ==
LOC: ER 16:48 → ED HOLD 20:02 → MED 3N 20:45 → PCU 3S 02-13 09:16
PROVIDERS: ADMIT Internal Medicine; ATTEND Internal Medicine
DX: I21.A1 Myocardial infarction type 2 (principal); I50.23 Acute on chronic systolic (congestive) heart failure; N17.9 Acute kidney failure, unspecified; E86.9 Volume depletion, unspecified; I48.92 Unspecified atrial flutter; L97.919 Non-pressure chronic ulcer of unspecified part of right lower leg with unspecified severity; E87.5 Hyperkalemia; I48.91 Unspecified atrial fibrillation; E03.9 Hypothyroidism, unspecified; I13.0 Hypertensive heart and chronic kidney disease with heart failure and stage 1 through stage 4 chronic kidney disease, or unspecified chronic kidney disease; F15.10 Other stimulant abuse, uncomplicated; N18.9 Chronic kidney disease, unspecified; R94.5 Abnormal results of liver function studies; F17.200 Nicotine dependence, unspecified, uncomplicated; J45.909 Unspecified asthma, uncomplicated; Z86.711 Personal history of pulmonary embolism; Z85.47 Personal history of malignant neoplasm of testis
CPT/HCPCS: 36415; 71045; 76937; 80053; 81003; 83880; 84439; 84443; 84484; 85025; 85610; 85730; 87081; 93005; 99285; G0378; J1644; J1940

== ENCOUNTER 2020-03-03 00:09 | Inpatient (IN) | payer MEDICAID ==
[~2020-03-03] VITALS: Ht 185.4 cm; Wt 120.4 kg
[~2020-03-03 00:09] MED LIST changes: +CARV-50 PO; -LISI-604 PO
[2020-03-03] MEDS ORDERED: CARV-50 PO (00:23)
[2020-03-03] MEDS ORDERED: LEVO125T8 PO (00:23)
[2020-03-03] MEDS ORDERED: SPIR50TA5 PO (00:23)
[2020-03-03] MEDS ORDERED: FURO-150 PO (00:23)
[2020-03-03] MEDS ORDERED: APIX5TAB3 PO (00:23)
[2020-03-03 00:38] LABS: MEAN CORPUSCULAR HEMOGLOBIN 26.1 PG (27.0-31.0); MEAN CORPUSCULAR HGB CONC 31.4 g/dL (33.0-36.5); MEAN PLATELET VOLUME 8.5 FL (7.4-10.4)
[2020-03-03 00:40] LABS: BASOPHILS # (AUTO) 0.1 X10'3 (0-0.2); EOSINOPHILS # (AUTO) 0.2 X10'3 (0-0.9); EOSINOPHILS % (AUTO) 2.5 % (0-6); HEMATOCRIT 44.4 % (42.0-52.0); LYMPHOCYTES # (AUTO) 1.4 X10'3 (1.1-4.8); MEAN CORPUSCULAR VOLUME 82.9 FL (78-98); MONOCYTES # (AUTO) 1.3 X10'3 (0-0.9); MONOCYTES % (AUTO) 14.5 % (2-12); NEUTROPHILS # (AUTO) 6.2 X10'3 (1.8-7.7); PLATELET COUNT 251 X10'3 (140-440); RED BLOOD COUNT 5.35 X10'6 (4.70-6.10); RED CELL DISTRIBUTION WIDTH 18.5 % (11.5-14.5); WHITE BLOOD COUNT 9.2 X10'3 (4.5-11.0)
[2020-03-03 00:46] LABS: PARTIAL THROMBOPLASTIN TIME 26 SECONDS (22-32)
[2020-03-03] MEDS ORDERED: ipratropium/albuterol 3ml nebule NEB ONE (01:25)
[2020-03-03 01:34] LABS: ALANINE AMINOTRANSFERASE 63 U/L (12-78); ALBUMIN 3.3 G/DL (3.4-5.0); ALBUMIN/GLOBULIN RATIO 1.1 (1.1-1.5); ALKALINE PHOSPHATASE 83 IU/L (46-116); ANION GAP 9 (8-16); ASPARTATE AMINO TRANSFERASE 50 U/L (10-37); BILIRUBIN,TOTAL 1.2 MG/DL (0.1-1.0); BLOOD UREA NITROGEN 36 MG/DL (7-18); BUN/CREATININE RATIO 17.6 (5.4-32.0); CALCIUM 8.1 MG/DL (8.5-10.1); CHLORIDE 107 MMOL/L (99-107); CREATININE 2.05 MG/DL (0.60-1.10); GLUCOSE 89 MG/DL (70-104); POTASSIUM 4.7 MMOL/L (3.5-5.1); SODIUM 143 MMOL/L (135-145); TOTAL CARBON DIOXIDE 26.9 MMOL/L (24-32); TOTAL PROTEIN 6.4 G/DL (6.4-8.2); eGFR 35 ML/MIN
[2020-03-03] MEDS ORDERED: diltiazem 5mg/ml 5ml inj. IV ONE (01:50)
[2020-03-03] MEDS ORDERED: magnesium 2GM in 50ml NS 50 ML IV PRN (02:10)
[2020-03-03] MEDS ORDERED: magnesium Cl slow-release 64mg tablet PO PRN (02:10)
[2020-03-03] MEDS ORDERED: potassium CL 10mEq/100ml bag 100 ML IV PRN ×2 (02:10)
[2020-03-03] MEDS ORDERED: magnesium 4gm in 100ml NS 100 ML IV PRN (02:10)
[2020-03-03] MEDS ORDERED: mag hydrox/Alum hydrox/simeth 30ml oral suspension PO PRN (02:10)
[2020-03-03] MEDS ORDERED: acetaminophen 325mg tablet PO PRN (02:10)
[2020-03-03] MEDS ORDERED: potassium Cl 20 mEq SR tablet PO PRN ×2 (02:10)
[2020-03-03] MEDS ORDERED: ondansetron/PF 4mg/2ml inj IV PRN (02:10)
[2020-03-03] MEDS ORDERED: magnesium hydroxide 30ml (MOM) UD suspension PO PRN (02:10)
--- NOTE | 2020-03-03 03:40 | NUR ---
Pt arrived on unit. Vital signs obtained HR 94-98.2 F- 122/89- 99% - 23RR. Telemetry monitoring applied. Assessed and two RN skin check completed. Belongings accounted for and placed in bedside drawer.
--- NOTE | 2020-03-03 04:41 | NUR ---
Patient in room U 3012. I have received report from CARLEY VIRK and had the opportunity to ask questions and assume patient care. Addendum: 03/03/20 at 0442 by Katelyn Herrera RN Time incorrect. Received report at 5167
[2020-03-03 06:00] VITALS: BP 105/80
--- NOTE | 2020-03-03 06:00 | NUR ---
Patient in room U 3012. I have received report from Jennifer VIRK and had the opportunity to ask questions and assume patient care. Patient is sleeping.
--- NOTE | 2020-03-03 06:29 | NUR ---
Problems reprioritized. Patient report given, questions answered & plan of care reviewed with Roula VIRK.
[2020-03-03] MEDS: K and/or MAG REPLACEMENT MC SCH ×2 (07:53→20:00)
[2020-03-03] MEDS: furosemide 10 MG/1 ML 10ml inj IV SCH ×2 (07:53→20:51)
[2020-03-03] MEDS: spironolactone 50 MG tablet PO SCH (07:53)
[2020-03-03] MEDS: carVEDilol 12.5mg tablet PO SCH ×2 (07:54→20:52)
[2020-03-03] MEDS: levoTHYROXINE 125mcg tablet PO SCH (07:54)
[2020-03-03] MEDS: apixaban 5mg tablet PO SCH ×2 (07:54→20:52)
[2020-03-03 11:00] VITALS: BP 114/72
[2020-03-03 11:02] LABS: URINE AMPHETAMINE SCREEN NEGATIVE (Neg); URINE BARBITUATE SCREEN NEGATIVE (Neg); URINE BENZODIAZEPINES SCREEN NEGATIVE (Neg); URINE CANNABINOID SCREEN NEGATIVE (Neg); URINE COCAINE SCREEN NEGATIVE (Neg); URINE METHADONE SCREEN NEGATIVE (Neg); URINE OPIATE SCREEN NEGATIVE (Neg); URINE PHENCYCLIDINE SCREEN NEGATIVE (Neg)
[2020-03-03 15:00] VITALS: BP 112/83
[2020-03-03 18:00] VITALS: BP 113/82
--- NOTE | 2020-03-03 18:08 | NUR ---
Problems reprioritized. Patient report given, questions answered & plan of care reviewed with Radha VIRK.
--- NOTE | 2020-03-03 18:09 | NUR ---
Patient in room PCU 3012. I have received report from Roula VIRK and had the opportunity to ask questions and assume patient care.
[2020-03-03 22:00] VITALS: BP 111/69
[2020-03-04 02:00] VITALS: BP 98/69
--- NOTE | 2020-03-04 06:00 | NUR ---
Patient in room PCU 3012. I have received report from Katelyn VIRK and had the opportunity to ask questions and assume patient care. Patient is sleeping. Sitter is present
--- NOTE | 2020-03-04 06:01 | NUR ---
Problems reprioritized. Patient report given, questions answered & plan of care reviewed with Roula VIRK.
--- NOTE | 2020-03-04 06:42 | NUR ---
Patient refused morning vitals.
[2020-03-04] MEDS: K and/or MAG REPLACEMENT MC SCH ×2 (08:00→20:00)
[2020-03-04] MEDS: furosemide 10 MG/1 ML 10ml inj IV SCH ×2 (09:30→20:45)
[2020-03-04] MEDS: spironolactone 50 MG tablet PO SCH (09:31)
[2020-03-04] MEDS: carVEDilol 12.5mg tablet PO SCH ×2 (09:31→20:45)
[2020-03-04] MEDS: apixaban 5mg tablet PO SCH ×2 (09:31→20:45)
[2020-03-04] MEDS: levoTHYROXINE 125mcg tablet PO SCH (09:33)
[2020-03-04 11:00] VITALS: BP 107/63
[2020-03-04 15:00] VITALS: BP 107/71
[2020-03-04 18:00] VITALS: BP 117/78
--- NOTE | 2020-03-04 18:04 | NUR ---
Patient in room PCU 3012. I have received report from Roula VIRK and had the opportunity to ask questions and assume patient care.
--- NOTE | 2020-03-04 18:38 | NUR ---
Problems reprioritized. Patient report given, questions answered & plan of care reviewed with Jennifer VIRK[].
[2020-03-04 22:00] VITALS: BP 111/64
[2020-03-05 02:00] VITALS: BP 107/65
--- NOTE | 2020-03-05 06:11 | NUR ---
Problems reprioritized. Patient report given, questions answered & plan of care reviewed with Dee Dee VIRK and Kurt RN .
--- NOTE | 2020-03-05 06:15 | NUR ---
Patient in room PCU 3012. I have received report from MOOSE Zepeda and had the opportunity to ask questions and assume patient care. Patient asleep in bed, sitter at the bedside and in no acute distress.
--- NOTE | 2020-03-05 06:38 | NUR ---
Patient in room PCU 3012. I have received report from Katelyn VIRK and had the opportunity to ask questions and assume patient care.
[2020-03-05 07:00] VITALS: BP 109/73
--- NOTE | 2020-03-05 07:49 | NUR ---
Problems reprioritized. Patient report given, questions answered & plan of care reviewed with MOOSE Jessica. Patient stable at transfer of care.
--- NOTE | 2020-03-05 07:49 | NUR ---
Problems reprioritized. Patient report given, questions answered & plan of care reviewed with Aracely VIRK.
[2020-03-05] MEDS: K and/or MAG REPLACEMENT MC SCH (08:00)
[2020-03-05] MEDS: carVEDilol 12.5mg tablet PO SCH (09:37)
[2020-03-05] MEDS: levoTHYROXINE 125mcg tablet PO SCH (09:38)
[2020-03-05] MEDS: spironolactone 50 MG tablet PO SCH (09:38)
[2020-03-05] MEDS: apixaban 5mg tablet PO SCH (09:38)
[2020-03-05] MEDS: furosemide 10 MG/1 ML 10ml inj IV SCH (09:40)
--- NOTE | 2020-03-05 09:57 | NUR ---
paged Dr. Beckwith - [facility] called and said they have a bed for pt and need a d/c order from PCU please.
--- NOTE | 2020-03-05 11:20 | NUR ---
pt discharged and transferred to [facility]. calm and cooperative. left with all his belongings.
== END 2020-03-05 11:20 | disposition psychiatric hospital, planned readmission (93) | DRG 190 ==
LOC: ER 00:09 → ED HOLD 02:07 → PCU 3S 03:35
PROVIDERS: ADMIT Internal Medicine; ATTEND Family Medicine
DX: I21.4 Non-ST elevation (NSTEMI) myocardial infarction (principal); I13.0 Hypertensive heart and chronic kidney disease with heart failure and stage 1 through stage 4 chronic kidney disease, or unspecified chronic kidney disease; I42.7 Cardiomyopathy due to drug and external agent; I50.9 Heart failure, unspecified; F15.10 Other stimulant abuse, uncomplicated; I48.91 Unspecified atrial fibrillation; J45.909 Unspecified asthma, uncomplicated; N18.9 Chronic kidney disease, unspecified; R45.851 Suicidal ideations; Z85.47 Personal history of malignant neoplasm of testis; Z86.711 Personal history of pulmonary embolism; Z91.14 Patient's other noncompliance with medication regimen; Z88.8 Allergy status to other drugs, medicaments and biological substances
CPT/HCPCS: 36415; 71045; 80053; 80305; 83735; 83880; 84484; 85025; 85610; 85730; 87081; 93005; 94640; 94760; 96374; 99285; G0378; J1940; J3490

== ENCOUNTER 2020-03-05 05:52 | Inpatient (IN) | payer MEDICAID ==
[~2020-03-05] VITALS: Ht 185.4 cm; Wt 112.3 kg
[~2020-03-05 05:52] MED LIST changes: +FURO-150 PO; -FURO20TA4 PO
[2020-03-05] MEDS ORDERED: loperamide 2mg capsule PO PRN (11:30)
[2020-03-05] MEDS ORDERED: quetiapine 100mg tablet PO PRN (11:30)
[2020-03-05] MEDS ORDERED: LORazepam 1 MG tablet PO PRN (11:30)
[2020-03-05] MEDS ORDERED: traZODone 50mg tablet PO PRN (11:30)
[2020-03-05] MEDS ORDERED: magnesium hydroxide 30ml (MOM) UD suspension PO PRN (11:30)
[2020-03-05] MEDS ORDERED: mag hydrox/Alum hydrox/simeth 30ml oral suspension PO PRN (11:30)
[2020-03-05] MEDS ORDERED: NICOTINE POLACRILEX 2 MG LOZENGE BC PRN (11:30)
[2020-03-05] MEDS ORDERED: acetaminophen 325mg tablet PO PRN (11:30)
[2020-03-05 12:04] VITALS: BP 105/76
[2020-03-05] MEDS: acetaminophen 325mg tablet PO PRN (14:37)
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
[2020-03-05 18:04] VITALS: BP 110/60
[2020-03-05] MEDS: furosemide 20MG tablet PO SCH (18:07)
[2020-03-05 19:31] VITALS: BP 99/48
[2020-03-05] MEDS: carVEDilol 12.5mg tablet PO SCH (20:00)
[2020-03-05] MEDS ORDERED: furosemide 20MG tablet PO SCH (20:00)
[2020-03-05] MEDS: apixaban 5mg tablet PO SCH (20:05)
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
[2020-03-06 07:49] VITALS: BP 101/72
[2020-03-06] MEDS ORDERED: spironolactone 50 MG tablet PO SCH (08:00)
[2020-03-06] MEDS ORDERED: levoTHYROXINE 125mcg tablet PO SCH (08:00)
[2020-03-06] MEDS ORDERED: nicotine 7mg patch - 24hr TD SCH (08:00)
[2020-03-06] MEDS: apixaban 5mg tablet PO SCH ×2 (08:12→21:57)
[2020-03-06] MEDS: furosemide 20MG tablet PO SCH ×2 (08:13→17:10)
[2020-03-06] MEDS: carVEDilol 12.5mg tablet PO SCH ×2 (08:13→20:00)
[2020-03-06] MEDS: acetaminophen 325mg tablet PO PRN ×2 (08:14→22:59)
[2020-03-06 08:15] VITALS: BP 118/90
[2020-03-06] MEDS ORDERED: ondansetron 4mg rapidly disintigrating tab PO PRN (09:25)
[2020-03-06 09:37] LABS: CHOL/HDL RATIO 2.4 (0.00-4.99); CHOLESTEROL 105 MG/DL (0-200); HDL CHOLESTEROL 43 MG/DL (35-60); LDL CHOLESTEROL 53 MG/DL (50-100); TRIGLYCERIDES 63 MG/DL (20-135)
[2020-03-06 09:39] LABS: HEMOGLOBIN A1C 6.4 % (4.5-6.2)
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
--- NOTE | 2020-03-06 14:38 | NUR ---
MRSA result came back positive from [facility]
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
[2020-03-06] MEDS ORDERED: duloxetine 30mg CAPSULE.DR PO ONE (18:45)
[2020-03-06] MEDS ORDERED: mineral oil/petrolatum, white cream 113gm jar TP SCH (20:00)
[2020-03-06] MEDS ORDERED: diltiazem 30mg tablet PO ONE (21:40)
--- NOTE | 2020-03-06 22:22 | NUR ---
HOSPITALIST PAGED FOR EKG Pt was sleeping soundly when feature writer approached for 1:1 assessment. Radial pulse was irregular, PT reported feeling "dizzy". EKG was ordered, completed and taken to ER physician . signed off and EKG and advised the hospitalist be called. Atrial flutter was confirmed. Dr. Whitley was consulted and 30mg cardizem PO was ordered and given.
[2020-03-07 00:29] VITALS: BP 98/64
[2020-03-07 00:39] VITALS: BP 99/75
--- NOTE | 2020-03-07 01:00 | NUR ---
RAPID RESPONSE CALLED 23:35 PT WOKE UP AND ALERTED STAFF THAT HE FELT SWEATY AND LIGHTHEADED AND EXPERIENCING NUMBNESS IN BOTH ARMS. PT DENIES SOB OR CHEST PAIN. 23:[address] MCKINNEY ALERTED. EKG AND VITALS COMPLETED. CBC, CMP, AND TROPONIN SET ORDERED. PT ASSESSED BY RAPID RESPONSE TEAM AND . PT TO BE TRANSFERRED TO PCU. SALINE LOCK PLACED IN R FOREARM 20G.
[2020-03-07 01:07] LABS: BASOPHILS # (AUTO) 0.1 X10'3 (0-0.2); BASOPHILS % (AUTO) 1.6 % (0-1); EOSINOPHILS # (AUTO) 0.1 X10'3 (0-0.9); EOSINOPHILS % (AUTO) 1.9 % (0-6); HEMATOCRIT 44.7 % (42.0-52.0); HEMOGLOBIN 14.4 g/dl (14.0-17.9); LYMPHOCYTES # (AUTO) 0.7 X10'3 (1.1-4.8); LYMPHOCYTES % (AUTO) 10.2 % (21-51); MEAN CORPUSCULAR HEMOGLOBIN 26.2 PG (27.0-31.0); MEAN CORPUSCULAR HGB CONC 32.2 g/dL (33.0-36.5); MEAN CORPUSCULAR VOLUME 81.2 FL (78-98); MEAN PLATELET VOLUME 7.8 FL (7.4-10.4); MONOCYTES # (AUTO) 1.4 X10'3 (0-0.9); MONOCYTES % (AUTO) 19.5 % (2-12); NEUTROPHILS # (AUTO) 4.9 X10'3 (1.8-7.7); NEUTROPHILS % (AUTO) 66.8 % (42-75); PLATELET COUNT 200 X10'3 (140-440); RED BLOOD COUNT 5.51 X10'6 (4.70-6.10); RED CELL DISTRIBUTION WIDTH 18.6 % (11.5-14.5); WHITE BLOOD COUNT 7.3 X10'3 (4.5-11.0)
[2020-03-07 01:20] LABS: TOTAL CELLS COUNTED 100
[2020-03-07 01:21] LABS: ANISOCYTOSIS 2+; PLATELET ESTIMATE NORMAL
[2020-03-07 01:22] LABS: ALANINE AMINOTRANSFERASE 37 U/L (12-78); ALBUMIN 3.2 G/DL (3.4-5.0); ALKALINE PHOSPHATASE 84 IU/L (46-116); ANION GAP 4 (8-16); ASPARTATE AMINO TRANSFERASE 22 U/L (10-37); BILIRUBIN,TOTAL 1.1 MG/DL (0.1-1.0); BLOOD UREA NITROGEN 37 MG/DL (7-18); BUN/CREATININE RATIO 18.5 (5.4-32.0); CALCIUM 9.1 MG/DL (8.5-10.1); CHLORIDE 101 MMOL/L (99-107); GLUCOSE 139 MG/DL (70-104); POTASSIUM 4.4 MMOL/L (3.5-5.1); SODIUM 137 MMOL/L (135-145); TOTAL CARBON DIOXIDE 31.6 MMOL/L (24-32); TOTAL PROTEIN 6.5 G/DL (6.4-8.2); eGFR 36 ML/MIN
[2020-03-07 01:25] LABS: TROPONIN I 0.06 NG/ML (0.0-0.05)
--- NOTE | 2020-03-07 01:50 | NUR ---
PT TRANSFERRED TO PCU. REPORT GIVEN TO CHARGE NURSE. PT DENIES SUICIDAL IDEATION. PT ACCOMPANIED BY STAFF VIA WHEELCHAIR IN STABLE CONDITION WITH BELONGINGS.
[2020-03-07] MEDS ORDERED: duloxetine 30mg CAPSULE.DR PO SCH (08:00)
[2020-03-07] MEDS ORDERED: CEPH250T PO (13:59)
[2020-03-07] MEDS ORDERED: LINE600T12 PO (14:04)
[2020-03-08] MEDS ORDERED: CEFD300C3 PO (15:34)
[2020-03-08] MEDS ORDERED: DULO-31 PO (15:34)
[2020-03-08] MEDS ORDERED: LISI-604 PO (18:20)
== END 2020-03-07 01:10 | disposition short-term general hospital (02) | DRG 751 ==
LOC: ADULT MH 10:57
PROVIDERS: ADMIT Psychiatry & Neurology Psychiatry; ATTEND Psychiatry & Neurology Psychiatry
DX: F33.2 Major depressive disorder, recurrent severe without psychotic features (principal); I42.0 Dilated cardiomyopathy; I82.C11 Acute embolism and thrombosis of right internal jugular vein; I11.0 Hypertensive heart disease with heart failure; I50.9 Heart failure, unspecified; E03.9 Hypothyroidism, unspecified; F15.10 Other stimulant abuse, uncomplicated; Z60.2 Problems related to living alone; F17.210 Nicotine dependence, cigarettes, uncomplicated; I48.91 Unspecified atrial fibrillation; R45.851 Suicidal ideations; Z65.3 Problems related to other legal circumstances; Z82.0 Family history of epilepsy and other diseases of the nervous system; Z85.47 Personal history of malignant neoplasm of testis; Z86.711 Personal history of pulmonary embolism; Z79.899 Other long term (current) drug therapy; Z88.8 Allergy status to other drugs, medicaments and biological substances; Z82.49 Family history of ischemic heart disease and other diseases of the circulatory system
CPT/HCPCS: 36415; 80053; 80061; 83036; 84484; 85025; 87081; 93005

== ENCOUNTER 2020-03-07 01:05 | Inpatient (IN) | payer MEDICAID ==
[~2020-03-07] VITALS: Ht 185.4 cm; Wt 110.5 kg
[2020-03-07 02:00] VITALS: BP 120/81
--- NOTE | 2020-03-07 02:00 | NUR ---
pt states that he does not need any pain medication at this time for his hip pain because "it is from sleeping on it wrong".
[2020-03-07] MEDS ORDERED: acetaminophen 325mg tablet PO PRN (02:45)
[2020-03-07] MEDS ORDERED: magnesium 4gm in 100ml NS 100 ML IV PRN (02:45)
[2020-03-07] MEDS ORDERED: magnesium 2GM in 50ml NS 50 ML IV PRN (02:45)
[2020-03-07] MEDS ORDERED: potassium Cl 20 mEq SR tablet PO PRN ×2 (02:45)
[2020-03-07] MEDS ORDERED: magnesium Cl slow-release 64mg tablet PO PRN (02:45)
[2020-03-07] MEDS ORDERED: mag hydrox/Alum hydrox/simeth 30ml oral suspension PO PRN (02:45)
[2020-03-07] MEDS ORDERED: morphine 2 MG/ML inj. syringe IV PRN (02:45)
[2020-03-07] MEDS ORDERED: potassium CL 10mEq/100ml bag 100 ML IV PRN ×2 (02:45)
[2020-03-07] MEDS ORDERED: bisacodyl 10mg suppository rectal RC PRN (02:45)
[2020-03-07] MEDS ORDERED: magnesium hydroxide 30ml (MOM) UD suspension PO PRN (02:45)
[2020-03-07] MEDS ORDERED: ondansetron/PF 4mg/2ml inj IV PRN (02:45)
--- NOTE | 2020-03-07 02:45 | NUR ---
NOTIFIED PAGER ID: [phone] MESSAGE: Daniel Khan, 3022- pt is on the floor with no orders from behavioral health FYI
--- NOTE | 2020-03-07 03:18 | NUR ---
pt states that he does not want to "be asked many questions" at this time and just wants to sleep.
--- NOTE | 2020-03-07 06:24 | NUR ---
Problems reprioritized. Patient report given, questions answered & plan of care reviewed with Fatou VIRK.
--- NOTE | 2020-03-07 06:54 | NUR ---
Patient in room PCU 3022. I have received report from MOOSE Gramajo and had the opportunity to ask questions and assume patient care.
[2020-03-07 07:00] VITALS: BP 97/71
[2020-03-07] MEDS: docusate sod 100mg capsule PO SCH ×2 (07:24→19:08)
[2020-03-07] MEDS: levoTHYROXINE 125mcg tablet PO SCH (07:24)
[2020-03-07] MEDS: apixaban 5mg tablet PO SCH ×2 (07:25→19:08)
[2020-03-07] MEDS: carvedilol 6.25mg tablet PO SCH ×2 (07:25→19:08)
[2020-03-07] MEDS: furosemide 20MG tablet PO SCH (07:25)
[2020-03-07] MEDS: HYDROcodone/acetaminophen 5mg/325mg tablet PO PRN (07:31)
[2020-03-07] MEDS: K and/or MAG REPLACEMENT MC SCH ×3 (07:33→20:00)
[2020-03-07] MEDS: spironolactone 25 MG tablet PO SCH (08:53)
[2020-03-07 11:00] VITALS: BP 95/75
--- NOTE | 2020-03-07 12:41 | NUR ---
New orders from [facility] for a wound consult.
[2020-03-07] MEDS ORDERED: CEPH250T PO (13:59)
[2020-03-07] MEDS ORDERED: LINE600T12 PO (14:04)
[2020-03-07 15:00] VITALS: BP 106/82
[2020-03-07 17:13] LABS: URINE AMPHETAMINE SCREEN NEGATIVE (Neg); URINE BARBITUATE SCREEN NEGATIVE (Neg); URINE BENZODIAZEPINES SCREEN NEGATIVE (Neg); URINE CANNABINOID SCREEN NEGATIVE (Neg); URINE COCAINE SCREEN NEGATIVE (Neg); URINE METHADONE SCREEN NEGATIVE (Neg); URINE OPIATE SCREEN POSITIVE (Neg); URINE PHENCYCLIDINE SCREEN NEGATIVE (Neg)
[2020-03-07 18:00] VITALS: BP 112/81
--- NOTE | 2020-03-07 18:01 | NUR ---
Problems reprioritized. Patient report given, questions answered & plan of care reviewed with MOOSE Heredia.
--- NOTE | 2020-03-07 18:30 | NUR ---
Patient in room PCU 3022. I have received report from Fatou VIRK and had the opportunity to ask questions and assume patient care.
[2020-03-07 22:00] VITALS: BP 102/78
[2020-03-08] MEDS: HYDROcodone/acetaminophen 5mg/325mg tablet PO PRN ×2 (01:30→07:48)
[2020-03-08 02:00] VITALS: BP 103/74
--- NOTE | 2020-03-08 06:08 | NUR ---
Problems reprioritized. Patient report given, questions answered & plan of care reviewed with Dariusz VIRK.
--- NOTE | 2020-03-08 06:13 | NUR ---
Patient in room PCU 3022. I have received report from Avila RN and had the opportunity to ask questions and assume patient care.
[2020-03-08 07:00] VITALS: BP 116/80
[2020-03-08] MEDS: levoTHYROXINE 125mcg tablet PO SCH (07:49)
[2020-03-08] MEDS: apixaban 5mg tablet PO SCH (07:49)
[2020-03-08] MEDS: carvedilol 6.25mg tablet PO SCH (07:49)
[2020-03-08] MEDS: spironolactone 25 MG tablet PO SCH (07:49)
[2020-03-08] MEDS: furosemide 20MG tablet PO SCH (07:49)
[2020-03-08] MEDS: docusate sod 100mg capsule PO SCH (07:49)
[2020-03-08] MEDS: K and/or MAG REPLACEMENT MC SCH (08:00)
[2020-03-08 08:25] LABS: BASOPHILS # (AUTO) 0.1 X10'3 (0-0.2); BASOPHILS % (AUTO) 0.7 % (0-1); EOSINOPHILS # (AUTO) 0.1 X10'3 (0-0.9); EOSINOPHILS % (AUTO) 1.7 % (0-6); HEMATOCRIT 44.1 % (42.0-52.0); HEMOGLOBIN 14.2 g/dl (14.0-17.9); LYMPHOCYTES # (AUTO) 1.2 X10'3 (1.1-4.8); LYMPHOCYTES % (AUTO) 14.5 % (21-51); MEAN CORPUSCULAR HEMOGLOBIN 25.9 PG (27.0-31.0); MEAN CORPUSCULAR HGB CONC 32.1 g/dL (33.0-36.5); MEAN CORPUSCULAR VOLUME 80.6 FL (78-98); MEAN PLATELET VOLUME 8.3 FL (7.4-10.4); MONOCYTES # (AUTO) 1.5 X10'3 (0-0.9); MONOCYTES % (AUTO) 18.1 % (2-12); NEUTROPHILS # (AUTO) 5.4 X10'3 (1.8-7.7); PLATELET COUNT 215 X10'3 (140-440); RED BLOOD COUNT 5.47 X10'6 (4.70-6.10); RED CELL DISTRIBUTION WIDTH 18.7 % (11.5-14.5); WHITE BLOOD COUNT 8.3 X10'3 (4.5-11.0)
[2020-03-08 08:50] LABS: ALANINE AMINOTRANSFERASE 35 U/L (12-78); ALBUMIN 3.1 G/DL (3.4-5.0); ALBUMIN/GLOBULIN RATIO 0.9 (1.1-1.5); ALKALINE PHOSPHATASE 89 IU/L (46-116); ANION GAP 7 (8-16); ASPARTATE AMINO TRANSFERASE 27 U/L (10-37); BILIRUBIN,TOTAL 1.1 MG/DL (0.1-1.0); BLOOD UREA NITROGEN 38 MG/DL (7-18); BUN/CREATININE RATIO 24.1 (5.4-32.0); CALCIUM 8.6 MG/DL (8.5-10.1); CHLORIDE 100 MMOL/L (99-107); CREATININE 1.58 MG/DL (0.60-1.10); GLUCOSE 88 MG/DL (70-104); POTASSIUM 4.7 MMOL/L (3.5-5.1); SODIUM 137 MMOL/L (135-145); TOTAL PROTEIN 6.7 G/DL (6.4-8.2); eGFR 47 ML/MIN
[2020-03-08 11:00] VITALS: BP 102/65
--- NOTE | 2020-03-08 12:28 | NUR ---
Paged Dr. Beckwith. Daniel Khan. [phone]. FYI patient has been cleared by social work faculty member. Behavioral Health psychiatrist is requesting patient increase dose of Cymbalta from 30 mg to 60 mg, and be given a 2 week prescription. Dariusz [phone]
[2020-03-08] MEDS ORDERED: DULO-31 PO (15:34)
[2020-03-08] MEDS ORDERED: CEFD300C3 PO (15:34)
--- NOTE | 2020-03-08 17:13 | NUR ---
Patient safe for discharge per MD orders, discharge instructions reviewed with patient and questions answered, PIV and tele DC, prescriptions called into patients pharmacy, wheeled to lobby, picked up by sp and taken to home in [facility].
[2020-03-08 17:17] VITALS: BP 122/80
[2020-03-08] MEDS ORDERED: LISI-604 PO (18:20)
== END 2020-03-08 17:22 | disposition home or self-care (01) | DRG 203 ==
LOC: PCU 3S 01:05 → UNDODISIN 21:46
PROVIDERS: ADMIT Family Medicine; ATTEND Family Medicine
DX: R07.89 Other chest pain (principal); I42.7 Cardiomyopathy due to drug and external agent; I50.9 Heart failure, unspecified; R45.851 Suicidal ideations; I48.92 Unspecified atrial flutter; I48.91 Unspecified atrial fibrillation; T43.625A Adverse effect of amphetamines, initial encounter; Y92.89 Other specified places as the place of occurrence of the external cause; Z91.19 Patient's noncompliance with other medical treatment and regimen; Z82.49 Family history of ischemic heart disease and other diseases of the circulatory system
CPT/HCPCS: 80053; 80305; 83735; 85025; G0378; J2270

== ENCOUNTER 2020-03-15 04:02 | Inpatient (IN) | payer MEDICAID ==
[2020-03-15] VITALS (23 sets, daily range): BP systolic 71–134; BP diastolic 34–97
[~2020-03-15] VITALS: Ht 185.4 cm; Wt 120.7 kg
[~2020-03-15 04:02] MED LIST changes: +CEFD300C3 PO; +DULO-31 PO; +LISI-604 PO
[2020-03-15] MEDS ORDERED: diltiazem-D5W 125mg/125ml 125 ML IV SCH (04:25)
[2020-03-15] MEDS ORDERED: LISI-604 PO (04:42)
[2020-03-15] MEDS ORDERED: CEFD300C21 PO (04:42)
[2020-03-15] MEDS ORDERED: DULO-31 PO (04:42)
[2020-03-15] MEDS: diltiazem-NS 100mg/100ml 100 ML IV SCH ×2 (04:45→05:11)
[2020-03-15] MEDS ORDERED: ondansetron/PF 4mg/2ml inj IV PRN (05:00)
[2020-03-15] MEDS ORDERED: HYDROcodone/acetaminophen 5mg/325mg tablet PO PRN (05:00)
[2020-03-15] MEDS ORDERED: mag hydrox/Alum hydrox/simeth 30ml oral suspension PO PRN (05:00)
[2020-03-15] MEDS ORDERED: acetaminophen 325mg tablet PO PRN (05:00)
[2020-03-15] MEDS ORDERED: magnesium hydroxide 30ml (MOM) UD suspension PO PRN (05:00)
--- NOTE | 2020-03-15 05:00 | NUR ---
Pt brought to floor from ED, pt moved in to bed from [facility], placed on mobile monitor, VS stable, cardizem gtt at 10mg/hr, pt oriented to room, and call light given to pt.
--- NOTE | 2020-03-15 05:10 | NUR ---
SPOKE WITH DR LENZ ERGARDING HR GOAL. ORDERS RECIEVED KEEP HR BELOW 100
--- NOTE | 2020-03-15 05:15 | NUR ---
pt to CT with RN
--- NOTE | 2020-03-15 05:15 | NUR ---
pts feet covered in feces. surgical scrub sponges used to clean pts feet.
--- NOTE | 2020-03-15 06:19 | NUR ---
Problems reprioritized. Patient report given, questions answered & plan of care reviewed with Carissa VIRK.
--- NOTE | 2020-03-15 06:34 | NUR ---
Patient in room PCU 3022. I have received report from Yan VIRK and had the opportunity to ask questions and assume patient care.
--- NOTE | 2020-03-15 07:00 | NUR ---
Patient in bed sleeping. Diltiazem drip at 10mg/hr. Report was at 10ml/hr but IV spread sheet indicates 5 ml.hr. Will continue to monitor. Charge Nurse notified Kanchan.
[2020-03-15 07:15] LABS: BASOPHILS % (AUTO) 0.4 % (0-1); EOSINOPHILS % (AUTO) 0.4 % (0-6); HEMATOCRIT 36.9 % (42.0-52.0); LYMPHOCYTES # (AUTO) 0.7 X10'3 (1.1-4.8); LYMPHOCYTES % (AUTO) 7.1 % (21-51); MEAN CORPUSCULAR HEMOGLOBIN 25.9 PG (27.0-31.0); MEAN CORPUSCULAR HGB CONC 32.4 g/dL (33.0-36.5); MEAN PLATELET VOLUME 7.9 FL (7.4-10.4); MONOCYTES # (AUTO) 1.6 X10'3 (0-0.9); MONOCYTES % (AUTO) 15.3 % (2-12); NEUTROPHILS # (AUTO) 7.9 X10'3 (1.8-7.7); NEUTROPHILS % (AUTO) 76.8 % (42-75); PLATELET COUNT 297 X10'3 (140-440); RED BLOOD COUNT 4.62 X10'6 (4.70-6.10); RED CELL DISTRIBUTION WIDTH 18.1 % (11.5-14.5); WHITE BLOOD COUNT 10.3 X10'3 (4.5-11.0)
[2020-03-15 07:37] LABS: ALANINE AMINOTRANSFERASE 44 U/L (12-78); ALBUMIN 2.6 G/DL (3.4-5.0); ALBUMIN/GLOBULIN RATIO 0.6 (1.1-1.5); ALKALINE PHOSPHATASE 132 IU/L (46-116); ANION GAP 12 (8-16); ASPARTATE AMINO TRANSFERASE 49 U/L (10-37); BILIRUBIN,TOTAL 1.3 MG/DL (0.1-1.0); BLOOD UREA NITROGEN 41 MG/DL (7-18); BUN/CREATININE RATIO 24.6 (5.4-32.0); CALCIUM 8.3 MG/DL (8.5-10.1); CHLORIDE 102 MMOL/L (99-107); CREATININE 1.67 MG/DL (0.60-1.10); GLUCOSE 103 MG/DL (70-104); POTASSIUM 3.6 MMOL/L (3.5-5.1); SODIUM 138 MMOL/L (135-145); TOTAL CARBON DIOXIDE 24.1 MMOL/L (24-32); TOTAL PROTEIN 6.8 G/DL (6.4-8.2); eGFR 44 ML/MIN
[2020-03-15] MEDS ORDERED: clindamycin 300mg/D5W 50mL 50 ML IV SCH (08:00)
[2020-03-15] MEDS ORDERED: spironolactone 50 MG tablet PO SCH (08:00)
[2020-03-15] MEDS ORDERED: lisinopril 5mg tablet PO SCH (08:00)
[2020-03-15] MEDS ORDERED: furosemide 20MG tablet PO SCH (08:00)
[2020-03-15] MEDS ORDERED: levoTHYROXINE 125mcg tablet PO SCH (08:00)
[2020-03-15] MEDS ORDERED: duloxetine 30mg CAPSULE.DR PO SCH (08:00)
[2020-03-15] MEDS ORDERED: apixaban 5mg tablet PO SCH (08:00)
[2020-03-15] MEDS ORDERED: carVEDilol 12.5mg tablet PO SCH (08:00)
[2020-03-15 08:38] LABS: TOTAL CELLS COUNTED 100
[2020-03-15 08:44] LABS: ANISOCYTOSIS 2+; ELLIPTOCYTES 1+; PLATELET ESTIMATE NORMAL; POLYCHROMASIA FEW; SCHISTOCYTES FEW
[2020-03-15 08:45] LABS: BURR CELLS FEW
--- NOTE | 2020-03-15 08:54 | NUR ---
Dr. Kennedy at bedside with patient and Nurse. New Orders PRN for pain Dilaudid 1mg Q2hr. Keep patient NPO for possible surgery, Dr will be contacting Dr. Baron. Bowen Cath as protocol per MD orders and to use lidocaine if needing it to be changed. Will continue to monitor.
[2020-03-15] MEDS ORDERED: HYDROmorphone 1 mg/ml syringe IV PRN (09:00)
[2020-03-15] MEDS ORDERED: LIDOcaine 2% 10ml TOPICAL JELLY (Urojet) TP ONE (10:10)
[2020-03-15] MEDS ORDERED: LIDOcaine 2% 10ml TOPICAL JELLY (Urojet) MM ONE (10:10)
--- NOTE | 2020-03-15 10:51 | NUR ---
Paged Dr. Kennedy and advising MD about Low blood pressures. Re: Daniel Khan RM 302. Pt on Diltiazem drip at 10mg BP 90/51. Would you like to decrease drip? Please advise Carissa VIRK [phone]
--- NOTE | 2020-03-15 11:00 | NUR ---
Dr. Kennedy at bedside with pt and nurse. New order Heart healthy diet until 7-12 midnight then surgery. Diltiazem drip to be at 7mg then in one hor 1100 drop to 5mg and monitor patients blood pressure and HR. Will continue to monitor.
--- NOTE | 2020-03-15 11:59 | NUR ---
One hour recheck for blood pressure and Diltazem drip at 7mg/hr. Patients blood pressure running at 94/48. Rate dropped to 5mg/hr per D. Marcia orders. Will continue to monitor.
--- NOTE | 2020-03-15 12:10 | NUR ---
Patient Blood Pressure 70/40 Cardizem dripped stopped, Called Dr. Kennedy to notify patients vital signs. New orders to stop drip and bolus up to 500. Continue to monitor and support patient.
--- NOTE | 2020-03-15 12:34 | NUR ---
PAGER ID: [phone] MESSAGE: [id number] pt Bill has automatic BP 74/47 and manual of 72/58. Cardizem stopped. HR 64, RR 22,, Temp oral 97.7 -Carissa [phone]
--- NOTE | 2020-03-15 12:36 | NUR ---
PAGER ID: [phone] MESSAGE: [id number] pt Bill, would you like a sepsis workup with blood cultures? - [phone]
--- NOTE | 2020-03-15 13:00 | NUR ---
PAGER ID: [phone] MESSAGE: [id number] pt Bill BP raised up to 94/74 temporarily with bolus then dropped down again to its current 64/40. Please advise - [phone]
--- NOTE | 2020-03-15 13:00 | NUR ---
Charge Nurse Lilian at bedside with patient and Nurse. Patient's blood pressure not sustaining running low 60/30 and HR dropping to 30-50s. @ fluid bolus 250 administer to revive blood pressure. No success, Paged Dr. Kennedy then paged a rapid. Patient transferred to ICU
--- NOTE | 2020-03-15 13:09 | NUR ---
3022 pt Bill BP raised up to 94/74 temporarily with bolus then dropped down again to its current 64/40, brief nigel to 36 with Aflutter
--- NOTE | 2020-03-15 13:13 | NUR ---
3022 pt Bill BP raised up to 94/74 temporarily with bolus then dropped down again to its current 64/40, brief nigel to 36 with Aflutter
--- NOTE | 2020-03-15 13:40 | NUR ---
Problems reprioritized. Patient report given, questions answered & plan of care reviewed with Luis VIRK and Cassidy RN in ICU. Patient was transferred to unit with continued care.
[2020-03-15] MEDS ORDERED: normal saline 1000ml 1,000 ML IV ONE (14:15)
[2020-03-15] MEDS ORDERED: NORepinephrine 8mg/ 250ml NS 250 ML IV SCH (14:35)
[2020-03-15] MEDS ORDERED: HYDROmorphone/NS 1 mg/ml CADD 50 ML IV SCH (14:40)
[2020-03-15] MEDS: NORepinephrine 8mg/ 250ml NS 250 ML IV SCH (14:55)
[2020-03-15] MEDS ORDERED: CADD PCA waste documentation MC SCH (14:55)
[2020-03-15] MEDS: normal saline 1000ml 1,000 ML IV SCH (14:59)
[2020-03-15 15:20] LABS: CREATINE KINASE 149 U/L (39-308)
[2020-03-15] MEDS: VANCOMYCIN 1,500MG inj. 1,500 MG in normal saline 500ml IV soln 500 ML IV SCH (15:23)
[2020-03-15] MEDS: piperacillin/tazo 3.375gm/50ml 50 ML IV SCH (15:30)
[2020-03-15] MEDS: HYDROmorphone/NS 1 mg/ml CADD 50 ML IV SCH ×4 (17:13→23:00)
--- NOTE | 2020-03-15 18:16 | NUR ---
Pt arrived to unit at 1345. Placed on monitor. SBP in 70's with A fib/flutter in the 80's. O2sat 100% on 2L NC. Pt appeared to be in severe pain. Continuing to answer appropriately. Dr. Benjamin at bedside to place femoral CL and Levophed started. Rcvd 1500 NS bolus total per Dr. Benjamin. Hold off fluid bolus and continue NS MIVF at 100ml/hr. Hold on mixed venous per . ROMA Dilaudid pump set up however patient drowsy. Patient report given to MOOSE Stevens all questions answered.
--- NOTE | 2020-03-15 18:30 | NUR ---
Patient in room CICU 2013. I have received report from MOOSE Smith and had the opportunity to ask questions and assume patient care.
[2020-03-15] MEDS ORDERED: VANCOmycin 1250MG/NS 250ml Bag 250 ML IV SCH (20:00)
[2020-03-15] MEDS: lactobacillus rhamnosus 10,000 MMU CELLS/CAPSULE PO SCH (20:39)
[2020-03-16] VITALS (23 sets, daily range): BP systolic 90–129; BP diastolic 51–86
[2020-03-16] MEDS: piperacillin/tazo 3.375gm/50ml 50 ML IV SCH ×4 (00:28→23:10)
[2020-03-16] MEDS: normal saline 1000ml 1,000 ML IV SCH ×3 (00:29→23:10)
[2020-03-16] MEDS: HYDROmorphone/NS 1 mg/ml CADD 50 ML IV SCH ×5 (01:00→09:00)
[2020-03-16] MEDS: NORepinephrine 8mg/ 250ml NS 250 ML IV SCH ×2 (01:22→13:36)
[2020-03-16] MEDS: VANCOMYCIN 1,500MG inj. 1,500 MG in normal saline 500ml IV soln 500 ML IV SCH ×2 (02:23→14:47)
[2020-03-16 03:00] LABS: BASOPHILS # (AUTO) 0.1 X10'3 (0-0.2); BASOPHILS % (AUTO) 0.5 % (0-1); EOSINOPHILS # (AUTO) 0.2 X10'3 (0-0.9); EOSINOPHILS % (AUTO) 1.5 % (0-6); HEMATOCRIT 35.5 % (42.0-52.0); HEMOGLOBIN 11.3 g/dl (14.0-17.9); LYMPHOCYTES # (AUTO) 0.5 X10'3 (1.1-4.8); LYMPHOCYTES % (AUTO) 4.9 % (21-51); MEAN CORPUSCULAR HEMOGLOBIN 25.6 PG (27.0-31.0); MEAN CORPUSCULAR HGB CONC 31.8 g/dL (33.0-36.5); MEAN CORPUSCULAR VOLUME 80.7 FL (78-98); MEAN PLATELET VOLUME 7.5 FL (7.4-10.4); MONOCYTES # (AUTO) 1.2 X10'3 (0-0.9); MONOCYTES % (AUTO) 10.9 % (2-12); NEUTROPHILS # (AUTO) 9.1 X10'3 (1.8-7.7); NEUTROPHILS % (AUTO) 82.2 % (42-75); PLATELET COUNT 323 X10'3 (140-440); RED CELL DISTRIBUTION WIDTH 18.2 % (11.5-14.5); WHITE BLOOD COUNT 11.1 X10'3 (4.5-11.0)
[2020-03-16 03:27] LABS: ALANINE AMINOTRANSFERASE 35 U/L (12-78); ALBUMIN 2.2 G/DL (3.4-5.0); ALBUMIN/GLOBULIN RATIO 0.6 (1.1-1.5); ALKALINE PHOSPHATASE 112 IU/L (46-116); ANION GAP 8 (8-16); ASPARTATE AMINO TRANSFERASE 30 U/L (10-37); BILIRUBIN,TOTAL 1.1 MG/DL (0.1-1.0); BLOOD UREA NITROGEN 30 MG/DL (7-18); BUN/CREATININE RATIO 18.2 (5.4-32.0); CALCIUM 7.8 MG/DL (8.5-10.1); CHLORIDE 103 MMOL/L (99-107); CREATININE 1.65 MG/DL (0.60-1.10); POTASSIUM 3.7 MMOL/L (3.5-5.1); SODIUM 135 MMOL/L (135-145); TOTAL CARBON DIOXIDE 23.7 MMOL/L (24-32); eGFR 44 ML/MIN
[2020-03-16 03:38] LABS: GLUCOSE 44 MG/DL (70-104)
[2020-03-16] MEDS ORDERED: dextrose 50%-water 50ml dispensing syringe IV ONE (03:39)
--- NOTE | 2020-03-16 04:00 | NUR ---
Critical called from lab for serum glucose of 44. Checked Accucheck capillary with a result of 98. Since pt is on low dose of Levo, confirmed result via CVL of 91. Did not treat blood sugar at this time.
--- NOTE | 2020-03-16 06:31 | NUR ---
Problems reprioritized. Patient report given, questions answered & plan of care reviewed with MOOSE Quintanilla.
--- NOTE | 2020-03-16 06:36 | NUR ---
Patient in room CICU 2013. I have received report from Hilda and had the opportunity to ask questions and assume patient care.
[2020-03-16] MEDS: lactobacillus rhamnosus 10,000 MMU CELLS/CAPSULE PO SCH ×2 (07:30→20:22)
--- NOTE | 2020-03-16 09:54 | NUR ---
Spoke to Dr Benjamin regarding this patients plan of care, MD aware of (+) MRSA nasal swab, wants to keep patient on clear liquid diet and continue bedrest, want patient to continue to use CADD pump as needed for pain control, received new order for incentive spirometer, will continue to monitor the patient closely.
[2020-03-16] MEDS: HYDROcodone/acetaminophen 10/325mg tab PO PRN (10:55)
--- NOTE | 2020-03-16 14:36 | NUR ---
Dr Benjamin notified via telephone of gram (+) cocci cluster blood culture to [facility] from 03/15. No new orders received, will continue to monitor the patient closely.
--- NOTE | 2020-03-16 18:06 | NUR ---
Problems reprioritized. Patient report given, questions answered & plan of care reviewed with Hilda VIRK.
--- NOTE | 2020-03-16 18:30 | NUR ---
Patient in room CICU 2013. I have received report from MOOSE Quintanilla and had the opportunity to ask questions and assume patient care.
[2020-03-16] MEDS: docusate sod 250mg capsule PO SCH (20:22)
[2020-03-17] VITALS (22 sets, daily range): BP systolic 89–149; BP diastolic 65–102
[2020-03-17] MEDS: NORepinephrine 8mg/ 250ml NS 250 ML IV SCH ×2 (01:09→14:06)
[2020-03-17] MEDS ORDERED: VANCOMYCIN LEVEL IV ONE (02:30)
[2020-03-17 02:38] LABS: ALANINE AMINOTRANSFERASE 30 U/L (12-78); ALBUMIN 2.1 G/DL (3.4-5.0); ALBUMIN/GLOBULIN RATIO 0.5 (1.1-1.5); ALKALINE PHOSPHATASE 123 IU/L (46-116); ANION GAP 5 (8-16); ASPARTATE AMINO TRANSFERASE 24 U/L (10-37); BLOOD UREA NITROGEN 25 MG/DL (7-18); BUN/CREATININE RATIO 17.2 (5.4-32.0); CALCIUM 8.2 MG/DL (8.5-10.1); CHLORIDE 108 MMOL/L (99-107); CREATININE 1.45 MG/DL (0.60-1.10); GLUCOSE 102 MG/DL (70-104); POTASSIUM 4.2 MMOL/L (3.5-5.1); SODIUM 140 MMOL/L (135-145); TOTAL CARBON DIOXIDE 26.7 MMOL/L (24-32); VANCOMYCIN,TROUGH 19.6 UG/ML (6.0-14.0); eGFR 52 ML/MIN
[2020-03-17 02:44] LABS: BASOPHILS # (AUTO) 0.1 X10'3 (0-0.2); BASOPHILS % (AUTO) 0.6 % (0-1); EOSINOPHILS # (AUTO) 0.3 X10'3 (0-0.9); EOSINOPHILS % (AUTO) 2.7 % (0-6); HEMATOCRIT 36.4 % (42.0-52.0); HEMOGLOBIN 11.6 g/dl (14.0-17.9); LYMPHOCYTES # (AUTO) 0.7 X10'3 (1.1-4.8); LYMPHOCYTES % (AUTO) 6.8 % (21-51); MEAN CORPUSCULAR HEMOGLOBIN 25.7 PG (27.0-31.0); MEAN CORPUSCULAR HGB CONC 31.7 g/dL (33.0-36.5); MEAN CORPUSCULAR VOLUME 81.1 FL (78-98); MEAN PLATELET VOLUME 7.3 FL (7.4-10.4); MONOCYTES # (AUTO) 1.1 X10'3 (0-0.9); NEUTROPHILS # (AUTO) 7.8 X10'3 (1.8-7.7); NEUTROPHILS % (AUTO) 78.9 % (42-75); PLATELET COUNT 319 X10'3 (140-440); RED BLOOD COUNT 4.49 X10'6 (4.70-6.10); RED CELL DISTRIBUTION WIDTH 18.4 % (11.5-14.5); WHITE BLOOD COUNT 9.9 X10'3 (4.5-11.0)
[2020-03-17] MEDS: VANCOMYCIN 1,500MG inj. 1,500 MG in normal saline 500ml IV soln 500 ML IV SCH ×2 (03:19→15:59)
--- NOTE | 2020-03-17 06:19 | NUR ---
Problems reprioritized. Patient report given, questions answered & plan of care reviewed with MOOSE Salcido.
--- NOTE | 2020-03-17 06:30 | NUR ---
Received report from MOOSE Stevens
[2020-03-17] MEDS ORDERED: enoxaparin 40mg/0.4ml syringe SUBCUT SCH (08:00)
[2020-03-17] MEDS: lactobacillus rhamnosus 10,000 MMU CELLS/CAPSULE PO SCH ×2 (08:32→19:52)
[2020-03-17] MEDS: duloxetine 20mg capsule.DR PO SCH (08:32)
[2020-03-17] MEDS: piperacillin/tazo 3.375gm/50ml 50 ML IV SCH (08:32)
[2020-03-17] MEDS: HYDROcodone/acetaminophen 10/325mg tab PO PRN (08:33)
[2020-03-17] MEDS: levoTHYROXINE 100mcg tablet PO SCH (08:37)
[2020-03-17] MEDS ORDERED: digoxin 250mcg/ml 2ml ampule IV ONE (09:10)
[2020-03-17] MEDS: carVEDilol 12.5mg tablet PO SCH ×2 (10:58→19:52)
[2020-03-17] MEDS ORDERED: morphine 4 MG/ML inj SYRINge IV ONE (12:20)
[2020-03-17] MEDS ORDERED: morphine 10mg/ml inj. IV ONE (12:50)
[2020-03-17] MEDS ORDERED: heparin 10,000 units/1 ML INJ IV ONE (16:35)
[2020-03-17] MEDS: heparin 25,000 UNIT/250ml bag 250 ML IV SCH (18:03)
--- NOTE | 2020-03-17 18:22 | NUR ---
Report given to MOOSE Condon.
--- NOTE | 2020-03-17 19:34 | NUR ---
1822:[facility] I have received report from Loly VIRK and had the opportunity to ask questions and assume patient care. Addendum: 03/17/20 at 1934 by Roseanna Mcintosh RN Amended: Links added.
[2020-03-17] MEDS: docusate sod 250mg capsule PO SCH (19:52)
--- NOTE | 2020-03-17 21:51 | NUR ---
Report called to receiving nurse. Transferred to 301 on Tele #[phone] via ICU bed Belongings . Special Issues communicated to receiving nurse.
--- NOTE | 2020-03-17 21:51 | NUR ---
I have received report from MOOSE HARE and had the opportunity to ask questions. AWAITING PATIENT ARRIVAL TO [id number].
--- NOTE | 2020-03-17 22:00 | NUR ---
PATIENT UP TO FLOOR VIA ICU BED. PATIENT TRANSFERRED TO [place] VIA SLIDE BOARD. PATIENT AWAKE, ALERT, AND ORIENTED X4. ON BACK TENDER 44, 2L NC, AND VS OBTAINED AND STABLE. COMPLAINS OF PAIN IN RIGHT GROIN. WILL CONTINUE TO MONITOR CLOSELY.
[2020-03-17] MEDS: normal saline 1000ml 1,000 ML IV SCH (23:11)
--- NOTE | 2020-03-17 23:12 | NUR ---
CRITICAL CARE INTERVENTIONS COMPLETED. PATIENT TRANSFERRED TO PCU PER PROVIDER ORDER.
--- NOTE | 2020-03-17 23:25 | NUR ---
LINKED MED NOTE 1250- 10 MG IV MORPHINE NOT REASSESSED. PATIENT ON ICU. 1254- 4MG IV MORPHINE NOT REASSESSED. PATIENT ON ICU.
[2020-03-18] MEDS: heparin 10,000 units/1 ML INJ IV PRN (00:21)
[2020-03-18 02:05] VITALS: BP 102/70
[2020-03-18] MEDS: VANCOMYCIN 1,500MG inj. 1,500 MG in normal saline 500ml IV soln 500 ML IV SCH ×2 (03:37→14:12)
[2020-03-18] MEDS: HYDROcodone/acetaminophen 10/325mg tab PO PRN ×4 (04:55→21:19)
[2020-03-18] MEDS: heparin 25,000 UNIT/250ml bag 250 ML IV SCH ×4 (05:42→22:21)
[2020-03-18 05:56] LABS: BASOPHILS % (AUTO) 0.5 % (0-1); EOSINOPHILS # (AUTO) 0.2 X10'3 (0-0.9); EOSINOPHILS % (AUTO) 2.4 % (0-6); LYMPHOCYTES # (AUTO) 0.7 X10'3 (1.1-4.8); LYMPHOCYTES % (AUTO) 7.4 % (21-51); MEAN CORPUSCULAR HEMOGLOBIN 25.6 PG (27.0-31.0); MEAN CORPUSCULAR HGB CONC 31.3 g/dL (33.0-36.5); MEAN CORPUSCULAR VOLUME 81.9 FL (78-98); MEAN PLATELET VOLUME 7.3 FL (7.4-10.4); MONOCYTES # (AUTO) 0.9 X10'3 (0-0.9); MONOCYTES % (AUTO) 10.1 % (2-12); NEUTROPHILS # (AUTO) 7.5 X10'3 (1.8-7.7); NEUTROPHILS % (AUTO) 79.6 % (42-75); PLATELET COUNT 313 X10'3 (140-440); RED BLOOD COUNT 4.28 X10'6 (4.70-6.10); RED CELL DISTRIBUTION WIDTH 18.2 % (11.5-14.5); WHITE BLOOD COUNT 9.4 X10'3 (4.5-11.0)
[2020-03-18 06:00] VITALS: BP 125/71
[2020-03-18 06:00] LABS: ALANINE AMINOTRANSFERASE 26 U/L (12-78); ALBUMIN 2.1 G/DL (3.4-5.0); ALBUMIN/GLOBULIN RATIO 0.6 (1.1-1.5); ALKALINE PHOSPHATASE 121 IU/L (46-116); ANION GAP 6 (8-16); ASPARTATE AMINO TRANSFERASE 17 U/L (10-37); BLOOD UREA NITROGEN 22 MG/DL (7-18); BUN/CREATININE RATIO 17.9 (5.4-32.0); CALCIUM 8.1 MG/DL (8.5-10.1); CHLORIDE 107 MMOL/L (99-107); CREATININE 1.23 MG/DL (0.60-1.10); GLUCOSE 126 MG/DL (70-104); POTASSIUM 4.5 MMOL/L (3.5-5.1); SODIUM 139 MMOL/L (135-145); TOTAL CARBON DIOXIDE 26.4 MMOL/L (24-32); TOTAL PROTEIN 5.9 G/DL (6.4-8.2); eGFR 62 ML/MIN
--- NOTE | 2020-03-18 06:10 | NUR ---
Received care from Alexei VIRK, assumed care.
--- NOTE | 2020-03-18 06:30 | NUR ---
Problems reprioritized. Patient report given, questions answered & plan of care reviewed with MOOSE LINDSEY.
[2020-03-18] MEDS: levoTHYROXINE 100mcg tablet PO SCH (07:14)
[2020-03-18] MEDS: carVEDilol 12.5mg tablet PO SCH ×2 (07:14→21:08)
[2020-03-18] MEDS: lactobacillus rhamnosus 10,000 MMU CELLS/CAPSULE PO SCH ×2 (07:14→21:08)
[2020-03-18] MEDS: duloxetine 20mg capsule.DR PO SCH (07:14)
[2020-03-18 10:00] VITALS: BP 94/73
--- NOTE | 2020-03-18 10:31 | NUR ---
PAGEAlvina WINSLOW "CÉSAR [id number]- [id number] ALBERT RIVERA RESULTED +MRSA (OTHER BOTTLE) AND LEFT ARM +BLOOD CX GRAM +COCCI +CLUSTERS@ 17.58HRS"
--- NOTE | 2020-03-18 10:35 | NUR ---
RECEIVED CALLBACK, NO NEW ORDERS. PATIENT ON VANCOMYCIN IV.
--- NOTE | 2020-03-18 13:42 | NUR ---
NOTED 67 PTT, KEEPING CURRENT RATE THE SAME. WILL CONT. TO MONITOR. NEXT PTT TO BE AT 194.
[2020-03-18 15:00] VITALS: BP 124/90
[2020-03-18 18:00] VITALS: BP 112/77
--- NOTE | 2020-03-18 18:25 | NUR ---
Gave report to [facility], transferred care over to him.
[2020-03-18 19:42] LABS: HIV ANTIBODY 1&2 RAPID NON-REACTIVE (Neg)
--- NOTE | 2020-03-18 20:05 | NUR ---
PTT within range rate stayed the same will recheck in 6 hours
[2020-03-18] MEDS: docusate sod 250mg capsule PO SCH (21:08)
[2020-03-18] MEDS: normal saline 1000ml 1,000 ML IV SCH (22:59)
[2020-03-18 23:00] VITALS: BP 129/84
[2020-03-19 01:30] LABS: EOSINOPHILS # (AUTO) 0.2 X10'3 (0-0.9); HEMOGLOBIN 11.7 g/dl (14.0-17.9); NEUTROPHILS % (AUTO) 78.5 % (42-75); PLATELET COUNT 328 X10'3 (140-440); RED CELL DISTRIBUTION WIDTH 18.4 % (11.5-14.5)
[2020-03-19 01:31] LABS: BASOPHILS # (AUTO) 0.1 X10'3 (0-0.2); BASOPHILS % (AUTO) 0.9 % (0-1); EOSINOPHILS % (AUTO) 2.7 % (0-6); HEMATOCRIT 36.3 % (42.0-52.0); LYMPHOCYTES # (AUTO) 0.7 X10'3 (1.1-4.8); LYMPHOCYTES % (AUTO) 8.9 % (21-51); MEAN CORPUSCULAR HEMOGLOBIN 26.3 PG (27.0-31.0); MEAN CORPUSCULAR HGB CONC 32.1 g/dL (33.0-36.5); MEAN CORPUSCULAR VOLUME 81.8 FL (78-98); MEAN PLATELET VOLUME 7.2 FL (7.4-10.4); MONOCYTES # (AUTO) 0.7 X10'3 (0-0.9); NEUTROPHILS # (AUTO) 6.2 X10'3 (1.8-7.7); RED BLOOD COUNT 4.44 X10'6 (4.70-6.10); WHITE BLOOD COUNT 7.9 X10'3 (4.5-11.0)
[2020-03-19 01:40] LABS: ALANINE AMINOTRANSFERASE 21 U/L (12-78); ALBUMIN 2.3 G/DL (3.4-5.0); ALBUMIN/GLOBULIN RATIO 0.6 (1.1-1.5); ALKALINE PHOSPHATASE 129 IU/L (46-116); ANION GAP 4 (8-16); ASPARTATE AMINO TRANSFERASE 15 U/L (10-37); BILIRUBIN,TOTAL 0.7 MG/DL (0.1-1.0); BLOOD UREA NITROGEN 21 MG/DL (7-18); BUN/CREATININE RATIO 15.9 (5.4-32.0); CALCIUM 8.4 MG/DL (8.5-10.1); CHLORIDE 106 MMOL/L (99-107); CREATININE 1.32 MG/DL (0.60-1.10); GLUCOSE 145 MG/DL (70-104); POTASSIUM 4.5 MMOL/L (3.5-5.1); SODIUM 136 MMOL/L (135-145); TOTAL CARBON DIOXIDE 26.4 MMOL/L (24-32); TOTAL PROTEIN 6.3 G/DL (6.4-8.2); eGFR 57 ML/MIN
[2020-03-19 02:00] LABS: ACANTHOCYTES FEW; ANISOCYTOSIS 2+; ELLIPTOCYTES FEW; PLATELET ESTIMATE NORMAL
--- NOTE | 2020-03-19 02:08 | NUR ---
PTT in therapeutic range, PTT draw set for 6 hours later.
[2020-03-19 03:01] VITALS: BP 126/94
[2020-03-19] MEDS: VANCOMYCIN 1,500MG inj. 1,500 MG in normal saline 500ml IV soln 500 ML IV SCH ×2 (03:29→15:09)
--- NOTE | 2020-03-19 06:15 | NUR ---
Problems reprioritized. Patient report given, questions answered & plan of care reviewed with Dariusz VIRK.
--- NOTE | 2020-03-19 06:15 | NUR ---
Patient in room PCU 3022. I have received report from Noy VIRK and had the opportunity to ask questions and assume patient care.
--- NOTE | 2020-03-19 06:23 | NUR ---
Patient in room PCU 3022. I have received report from Avila RN and had the opportunity to ask questions and assume patient care.
[2020-03-19 07:00] VITALS: BP 116/84
--- NOTE | 2020-03-19 07:03 | NUR ---
Spoke with pharmacy. Vanco trough 19.6. Okay to give IV Vanco for cellulitis per pharmacy.
[2020-03-19] MEDS: lactobacillus rhamnosus 10,000 MMU CELLS/CAPSULE PO SCH ×2 (07:44→19:45)
[2020-03-19] MEDS: levoTHYROXINE 100mcg tablet PO SCH (07:44)
[2020-03-19] MEDS: duloxetine 20mg capsule.DR PO SCH (07:44)
[2020-03-19] MEDS: carVEDilol 12.5mg tablet PO SCH ×2 (07:44→19:45)
[2020-03-19 11:00] VITALS: BP 112/84
[2020-03-19] MEDS: HYDROcodone/acetaminophen 10/325mg tab PO PRN ×2 (12:26→19:59)
[2020-03-19] MEDS: heparin 25,000 UNIT/250ml bag 250 ML IV SCH ×2 (12:37→21:41)
[2020-03-19 15:00] VITALS: BP 116/86
[2020-03-19] MEDS ORDERED: GADOTERATE MEGLUMINE 7.5 MMOL/15 ML VIAL IV ONE (17:13)
[2020-03-19 18:00] VITALS: BP 136/91
--- NOTE | 2020-03-19 18:29 | NUR ---
Problems reprioritized. Patient report given, questions answered & plan of care reviewed with Joy VIRK.
[2020-03-19] MEDS: normal saline 1000ml 1,000 ML IV SCH (18:40)
--- NOTE | 2020-03-19 19:00 | NUR ---
Came on my shift and Heparin drip was off. Turned on the drip per protocol.
[2020-03-19] MEDS: docusate sod 250mg capsule PO SCH (20:02)
[2020-03-19] MEDS: heparin 10,000 units/1 ML INJ IV PRN (21:31)
[2020-03-19 22:00] VITALS: BP 148/82
[2020-03-20] MEDS: VANCOMYCIN 1,500MG inj. 1,500 MG in normal saline 500ml IV soln 500 ML IV SCH ×2 (02:52→15:00)
[2020-03-20 03:22] LABS: BASOPHILS # (AUTO) 0.1 X10'3 (0-0.2); BASOPHILS % (AUTO) 0.8 % (0-1); EOSINOPHILS # (AUTO) 0.1 X10'3 (0-0.9); HEMATOCRIT 37.5 % (42.0-52.0); HEMOGLOBIN 11.7 g/dl (14.0-17.9); LYMPHOCYTES # (AUTO) 0.9 X10'3 (1.1-4.8); LYMPHOCYTES % (AUTO) 11.8 % (21-51); MEAN CORPUSCULAR HEMOGLOBIN 25.5 PG (27.0-31.0); MEAN CORPUSCULAR HGB CONC 31.3 g/dL (33.0-36.5); MEAN CORPUSCULAR VOLUME 81.5 FL (78-98); MEAN PLATELET VOLUME 7.1 FL (7.4-10.4); MONOCYTES # (AUTO) 0.8 X10'3 (0-0.9); MONOCYTES % (AUTO) 10.8 % (2-12); NEUTROPHILS # (AUTO) 5.5 X10'3 (1.8-7.7); NEUTROPHILS % (AUTO) 74.6 % (42-75); PLATELET COUNT 328 X10'3 (140-440); RED CELL DISTRIBUTION WIDTH 18.8 % (11.5-14.5); WHITE BLOOD COUNT 7.3 X10'3 (4.5-11.0)
[2020-03-20 03:28] LABS: TOTAL CELLS COUNTED 100
[2020-03-20 03:29] LABS: ACANTHOCYTES FEW; ANISOCYTOSIS 2+; ELLIPTOCYTES FEW; PLATELET ESTIMATE NORMAL
[2020-03-20 03:39] LABS: ALANINE AMINOTRANSFERASE 26 U/L (12-78); ALBUMIN 2.4 G/DL (3.4-5.0); ALBUMIN/GLOBULIN RATIO 0.6 (1.1-1.5); ALKALINE PHOSPHATASE 128 IU/L (46-116); ANION GAP 8 (8-16); ASPARTATE AMINO TRANSFERASE 17 U/L (10-37); BILIRUBIN,TOTAL 0.7 MG/DL (0.1-1.0); BLOOD UREA NITROGEN 17 MG/DL (7-18); BUN/CREATININE RATIO 15.2 (5.4-32.0); CALCIUM 8.9 MG/DL (8.5-10.1); CHLORIDE 104 MMOL/L (99-107); CREATININE 1.12 MG/DL (0.60-1.10); GLUCOSE 123 MG/DL (70-104); POTASSIUM 4.1 MMOL/L (3.5-5.1); SODIUM 138 MMOL/L (135-145); TOTAL CARBON DIOXIDE 25.9 MMOL/L (24-32); TOTAL PROTEIN 6.5 G/DL (6.4-8.2); eGFR 69 ML/MIN
[2020-03-20 06:00] VITALS: BP 149/96
[2020-03-20] MEDS: heparin 25,000 UNIT/250ml bag 250 ML IV SCH ×2 (06:00→18:20)
--- NOTE | 2020-03-20 06:32 | NUR ---
Problems reprioritized. Patient report given, questions answered & plan of care reviewed with MOOSE Mae.
--- NOTE | 2020-03-20 06:47 | NUR ---
Patient in room PCU 3022. I have received report from Joy VIRK and had the opportunity to ask questions and assume patient care.
[2020-03-20] MEDS: lactobacillus rhamnosus 10,000 MMU CELLS/CAPSULE PO SCH ×2 (08:49→20:07)
[2020-03-20] MEDS: duloxetine 20mg capsule.DR PO SCH (08:50)
[2020-03-20] MEDS: carVEDilol 12.5mg tablet PO SCH ×2 (08:50→20:11)
[2020-03-20] MEDS: levoTHYROXINE 100mcg tablet PO SCH (08:52)
[2020-03-20] MEDS: HYDROcodone/acetaminophen 10/325mg tab PO PRN ×3 (08:53→21:33)
[2020-03-20 11:00] VITALS: BP 135/95
[2020-03-20 11:22] LABS: HBSAG SCREEN Negative (Negative); HEP A AB, IGM Negative (Negative); HEPATITIS C ANTIBODY <0.1 s/co ratio (0.0-0.9)
--- NOTE | 2020-03-20 12:35 | NUR ---
Initial: Pt admit with right groin cellulitis, psoas abscess versus myositis per MD note. MRI demonstrated likely iliopsoas abscess per MD note. Pt currently on a regular diet documented with 100% PO intake. D/w dietary to send double protein TID for satiety and increased protein needs. LBM 03/19, receiving routine bowel care. Will continue to follow and monitor need for further nutrition intervention. Recommendations: 1) Continue regular diet 2) Double eggs q breakfast, double protein BIDLD 3) Routine bowel care 4) Scaled weights per rx Addendum: 03/20/20 at [address] Amended: Links added.
[2020-03-20] MEDS ORDERED: VANCOMYCIN LEVEL IV ONE (14:30)
[2020-03-20] MEDS: normal saline 1000ml 1,000 ML IV SCH (14:40)
[2020-03-20 15:00] VITALS: BP 149/94
--- NOTE | 2020-03-20 15:36 | NUR ---
Vanco Trough is resulted: Critical High 20.6 Pharmacy is aware and is recommending to continue the current vanco dose.
--- NOTE | 2020-03-20 15:39 | NUR ---
page to Dr. Mendoza ID: [id number] MESSAGE: [id number] Daniel Khan: Vanco Trough is resulted: Critical High 20.6 Pharmacy is aware and is recommending to continue the current vanco dose.
[2020-03-20 18:00] VITALS: BP 120/85
--- NOTE | 2020-03-20 18:30 | NUR ---
Patient in room PCU 3022. I have received report from Carmelita VIRK and had the opportunity to ask questions and assume patient care.
[2020-03-20] MEDS: docusate sod 250mg capsule PO SCH (20:07)
[2020-03-20 22:00] VITALS: BP 133/87
[2020-03-21 02:00] VITALS: BP 145/99
[2020-03-21] MEDS: VANCOMYCIN 1,500MG inj. 1,500 MG in normal saline 500ml IV soln 500 ML IV SCH (03:22)
[2020-03-21 06:00] VITALS: BP 150/103
[2020-03-21 06:05] LABS: BASOPHILS % (AUTO) 0.6 % (0-1); EOSINOPHILS # (AUTO) 0.1 X10'3 (0-0.9); EOSINOPHILS % (AUTO) 1.6 % (0-6); HEMATOCRIT 35.7 % (42.0-52.0); HEMOGLOBIN 11.2 g/dl (14.0-17.9); LYMPHOCYTES # (AUTO) 0.9 X10'3 (1.1-4.8); LYMPHOCYTES % (AUTO) 12.9 % (21-51); MEAN CORPUSCULAR HEMOGLOBIN 25.9 PG (27.0-31.0); MEAN CORPUSCULAR HGB CONC 31.4 g/dL (33.0-36.5); MEAN CORPUSCULAR VOLUME 82.5 FL (78-98); MEAN PLATELET VOLUME 7.2 FL (7.4-10.4); MONOCYTES # (AUTO) 0.9 X10'3 (0-0.9); MONOCYTES % (AUTO) 12.2 % (2-12); NEUTROPHILS # (AUTO) 5.1 X10'3 (1.8-7.7); NEUTROPHILS % (AUTO) 72.7 % (42-75); PLATELET COUNT 326 X10'3 (140-440); RED BLOOD COUNT 4.33 X10'6 (4.70-6.10); RED CELL DISTRIBUTION WIDTH 18.7 % (11.5-14.5)
[2020-03-21 06:18] LABS: ALANINE AMINOTRANSFERASE 25 U/L (12-78); ALBUMIN 2.5 G/DL (3.4-5.0); ALBUMIN/GLOBULIN RATIO 0.6 (1.1-1.5); ALKALINE PHOSPHATASE 125 IU/L (46-116); ANION GAP 4 (8-16); ASPARTATE AMINO TRANSFERASE 18 U/L (10-37); BILIRUBIN,TOTAL 0.6 MG/DL (0.1-1.0); BLOOD UREA NITROGEN 20 MG/DL (7-18); BUN/CREATININE RATIO 15.4 (5.4-32.0); CALCIUM 8.4 MG/DL (8.5-10.1); CHLORIDE 106 MMOL/L (99-107); GLUCOSE 93 MG/DL (70-104); POTASSIUM 4.2 MMOL/L (3.5-5.1); SODIUM 140 MMOL/L (135-145); TOTAL CARBON DIOXIDE 29.9 MMOL/L (24-32); TOTAL PROTEIN 6.4 G/DL (6.4-8.2); eGFR 58 ML/MIN
--- NOTE | 2020-03-21 06:23 | NUR ---
Problems reprioritized. Patient report given, questions answered & plan of care reviewed with Carmelita VIRK.
[2020-03-21] MEDS: HYDROcodone/acetaminophen 10/325mg tab PO PRN ×2 (08:51→20:31)
[2020-03-21] MEDS: levoTHYROXINE 100mcg tablet PO SCH (08:51)
[2020-03-21] MEDS: lactobacillus rhamnosus 10,000 MMU CELLS/CAPSULE PO SCH ×2 (08:51→20:32)
[2020-03-21] MEDS: carVEDilol 12.5mg tablet PO SCH ×2 (08:51→20:31)
[2020-03-21] MEDS: duloxetine 20mg capsule.DR PO SCH (08:52)
[2020-03-21] MEDS: heparin 25,000 UNIT/250ml bag 250 ML IV SCH ×2 (09:43→22:06)
[2020-03-21] MEDS: normal saline 1000ml 1,000 ML IV SCH (10:40)
[2020-03-21 11:00] VITALS: BP 142/81
[2020-03-21 15:00] VITALS: BP 141/91
[2020-03-21] MEDS ORDERED: VANCOMYCIN 1,500MG inj. 1,500 MG in normal saline 250ml IV soln 300 ML IV SCH (15:00)
[2020-03-21] MEDS: VANCOmycin 1250MG/NS 250ml Bag 250 ML IV SCH (17:33)
[2020-03-21 19:00] VITALS: BP 140/105
[2020-03-21] MEDS: docusate sod 250mg capsule PO SCH (20:32)
[2020-03-21 23:00] VITALS: BP 129/78
[2020-03-22] MEDS: heparin 25,000 UNIT/250ml bag 250 ML IV SCH ×2 (01:03→14:04)
[2020-03-22 03:00] VITALS: BP 139/99
[2020-03-22] MEDS: VANCOmycin 1250MG/NS 250ml Bag 250 ML IV SCH ×2 (03:46→17:38)
[2020-03-22] MEDS: HYDROcodone/acetaminophen 10/325mg tab PO PRN ×3 (05:16→19:10)
[2020-03-22 05:52] LABS: BASOPHILS # (AUTO) 0.1 X10'3 (0-0.2); BASOPHILS % (AUTO) 0.8 % (0-1); EOSINOPHILS # (AUTO) 0.1 X10'3 (0-0.9); EOSINOPHILS % (AUTO) 1.4 % (0-6); HEMATOCRIT 34.7 % (42.0-52.0); HEMOGLOBIN 11.1 g/dl (14.0-17.9); LYMPHOCYTES # (AUTO) 0.9 X10'3 (1.1-4.8); LYMPHOCYTES % (AUTO) 11.7 % (21-51); MEAN CORPUSCULAR HEMOGLOBIN 25.8 PG (27.0-31.0); MEAN CORPUSCULAR VOLUME 80.7 FL (78-98); MEAN PLATELET VOLUME 7.3 FL (7.4-10.4); MONOCYTES # (AUTO) 0.8 X10'3 (0-0.9); MONOCYTES % (AUTO) 10.9 % (2-12); NEUTROPHILS # (AUTO) 5.6 X10'3 (1.8-7.7); NEUTROPHILS % (AUTO) 75.2 % (42-75); PLATELET COUNT 324 X10'3 (140-440); RED BLOOD COUNT 4.31 X10'6 (4.70-6.10); RED CELL DISTRIBUTION WIDTH 18.4 % (11.5-14.5); WHITE BLOOD COUNT 7.5 X10'3 (4.5-11.0)
[2020-03-22 06:00] VITALS: BP 134/98
[2020-03-22 06:00] LABS: ALANINE AMINOTRANSFERASE 25 U/L (12-78); ALBUMIN 2.4 G/DL (3.4-5.0); ALBUMIN/GLOBULIN RATIO 0.6 (1.1-1.5); ALKALINE PHOSPHATASE 126 IU/L (46-116); ANION GAP 6 (8-16); ASPARTATE AMINO TRANSFERASE 16 U/L (10-37); BILIRUBIN,TOTAL 0.6 MG/DL (0.1-1.0); BLOOD UREA NITROGEN 23 MG/DL (7-18); BUN/CREATININE RATIO 17.8 (5.4-32.0); CALCIUM 8.7 MG/DL (8.5-10.1); CHLORIDE 106 MMOL/L (99-107); CREATININE 1.29 MG/DL (0.60-1.10); GLUCOSE 96 MG/DL (70-104); POTASSIUM 4.5 MMOL/L (3.5-5.1); SODIUM 141 MMOL/L (135-145); TOTAL PROTEIN 6.2 G/DL (6.4-8.2); eGFR 59 ML/MIN
[2020-03-22] MEDS: normal saline 1000ml 1,000 ML IV SCH (06:40)
[2020-03-22] MEDS: lactobacillus rhamnosus 10,000 MMU CELLS/CAPSULE PO SCH ×2 (09:22→19:10)
[2020-03-22] MEDS: carVEDilol 12.5mg tablet PO SCH ×2 (09:23→19:10)
[2020-03-22] MEDS: duloxetine 20mg capsule.DR PO SCH (09:23)
[2020-03-22] MEDS: levoTHYROXINE 100mcg tablet PO SCH (09:23)
[2020-03-22 11:00] VITALS: BP 142/92
--- NOTE | 2020-03-22 14:33 | NUR ---
PT FOUND IN ROOM ON HIS KNEES.HE HAD GOTTEN UP FROM HIS RECLINER AND ATTEMPTED TO TAKE 2 STEPS TO HIS BED. CALL LIGHT STILL ATTACHED TO THE CHAIR ARM. WHEN ASKED WHY HE DID NOT USE CALL LIGHT, PT STATED HE "DID NOT WANT TO BOTHER ANYONE". PT UNHURT. NO BRUISING NOTED TO KNEES. PT RECEPTIVE TO REPEAT FALL RISK PREVENTION TEACHING. STATED THAT HE WOULD USE CALL LIGHT IN THE FUTURE.
[2020-03-22 15:00] VITALS: BP 132/96
[2020-03-22 18:00] VITALS: BP 133/99
--- NOTE | 2020-03-22 18:30 | NUR ---
Patient in room PCU 3022. I have received report from Leonora VIRK and had the opportunity to ask questions and assume patient care.
--- NOTE | 2020-03-22 18:45 | NUR ---
Problems reprioritized. Patient report given, questions answered & plan of care reviewed with Rosalind VIRK.
[2020-03-22] MEDS: docusate sod 250mg capsule PO SCH (20:38)
[2020-03-22 22:00] VITALS: BP 135/97
[2020-03-23 02:00] VITALS: BP 31/90
[2020-03-23 02:15] LABS: ALANINE AMINOTRANSFERASE 26 U/L (12-78); ALBUMIN 2.7 G/DL (3.4-5.0); ALBUMIN/GLOBULIN RATIO 0.6 (1.1-1.5); ALKALINE PHOSPHATASE 142 IU/L (46-116); ANION GAP 5 (8-16); ASPARTATE AMINO TRANSFERASE 19 U/L (10-37); BILIRUBIN,TOTAL 0.6 MG/DL (0.1-1.0); BLOOD UREA NITROGEN 23 MG/DL (7-18); CALCIUM 9.2 MG/DL (8.5-10.1); CHLORIDE 103 MMOL/L (99-107); CREATININE 1.21 MG/DL (0.60-1.10); GLUCOSE 83 MG/DL (70-104); POTASSIUM 4.1 MMOL/L (3.5-5.1); SODIUM 140 MMOL/L (135-145); TOTAL CARBON DIOXIDE 32.1 MMOL/L (24-32); TOTAL PROTEIN 6.9 G/DL (6.4-8.2); eGFR 63 ML/MIN
[2020-03-23 02:19] LABS: BASOPHILS # (AUTO) 0.1 X10'3 (0-0.2); BASOPHILS % (AUTO) 0.9 % (0-1); EOSINOPHILS # (AUTO) 0.1 X10'3 (0-0.9); EOSINOPHILS % (AUTO) 1.5 % (0-6); HEMATOCRIT 35.6 % (42.0-52.0); HEMOGLOBIN 11.3 g/dl (14.0-17.9); LYMPHOCYTES # (AUTO) 1.1 X10'3 (1.1-4.8); LYMPHOCYTES % (AUTO) 16.8 % (21-51); MEAN CORPUSCULAR HEMOGLOBIN 25.7 PG (27.0-31.0); MEAN CORPUSCULAR HGB CONC 31.7 g/dL (33.0-36.5); MEAN PLATELET VOLUME 7.2 FL (7.4-10.4); MONOCYTES # (AUTO) 0.8 X10'3 (0-0.9); MONOCYTES % (AUTO) 11.8 % (2-12); NEUTROPHILS # (AUTO) 4.6 X10'3 (1.8-7.7); PLATELET COUNT 352 X10'3 (140-440); RED BLOOD COUNT 4.39 X10'6 (4.70-6.10); RED CELL DISTRIBUTION WIDTH 18.9 % (11.5-14.5); VANCOMYCIN,TROUGH 23.3 UG/ML (6.0-14.0); WHITE BLOOD COUNT 6.7 X10'3 (4.5-11.0)
--- NOTE | 2020-03-23 02:20 | NUR ---
notified about Vanco trough being 23.3 stated for pharmacy to dose. pharmacy said to hang the 0200 vanco, will continue to monitor pt
[2020-03-23] MEDS ORDERED: VANCOMYCIN LEVEL IV ONE (02:30)
[2020-03-23] MEDS: VANCOmycin 1250MG/NS 250ml Bag 250 ML IV SCH (03:22)
[2020-03-23] MEDS: HYDROcodone/acetaminophen 10/325mg tab PO PRN ×4 (03:23→20:00)
[2020-03-23] MEDS: heparin 25,000 UNIT/250ml bag 250 ML IV SCH ×2 (03:28→18:30)
[2020-03-23 04:42] LABS: PLATELET ESTIMATE NORMAL
[2020-03-23 04:43] LABS: ANISOCYTOSIS 2+; ELLIPTOCYTES 1+
--- NOTE | 2020-03-23 06:25 | NUR ---
Problems reprioritized. Patient report given, questions answered & plan of care reviewed with Kelle VIRK.
[2020-03-23 07:00] VITALS: BP 136/103
[2020-03-23] MEDS: levoTHYROXINE 100mcg tablet PO SCH (09:17)
[2020-03-23] MEDS: normal saline 1000ml 1,000 ML IV SCH ×2 (09:17→22:40)
[2020-03-23] MEDS: carVEDilol 12.5mg tablet PO SCH ×2 (09:18→20:00)
[2020-03-23] MEDS: docusate sod 250mg capsule PO SCH (09:18)
[2020-03-23] MEDS: lactobacillus rhamnosus 10,000 MMU CELLS/CAPSULE PO SCH ×2 (09:18→20:00)
[2020-03-23] MEDS: duloxetine 20mg capsule.DR PO SCH (09:34)
[2020-03-23 11:00] VITALS: BP 124/94
--- NOTE | 2020-03-23 15:03 | NUR ---
Patient in room PCU 3022. I have received report from Bindu VIRK and had the opportunity to ask questions and assume patient care. Patient awake and oriented, offers no complaints, will continue to monitor, bedside report complete.
[2020-03-23] MEDS: vancomycin/NS 1 GM ADD-VANTAGE 250 ML X 1 DOSE IV SCH (15:24)
[2020-03-23 16:32] VITALS: BP 125/88
--- NOTE | 2020-03-23 18:32 | NUR ---
Problems reprioritized. Patient report given, questions answered & plan of care reviewed with Alexei VIRK. Patient stable at transfer of care.
--- NOTE | 2020-03-23 18:55 | NUR ---
Patient in room PCU 3022. I have received report from MOOSE LEVIN and had the opportunity to ask questions and assume patient care. PATIENT AWAKE FOR BEDSIDE REPORT AND STABLE AT THIS TIME. PATIENT RECEIVING 1900 UNITS/HR HEPARIN IV. NEXT DVT PTT AT 2100. WILL CONTINUE TO MONITOR CLOSELY.
[2020-03-23 19:00] VITALS: BP 115/94
[2020-03-23 23:00] VITALS: BP 105/69
--- NOTE | 2020-03-23 23:18 | NUR ---
2120 DVT PTT 62 AND WITHIN THERAPEUTIC RANGE. WILL CONTINUE TO INFUSE HEPARIN AT 1900 UNIT/HR. NEXT DVT PTT TO BE DRAWN AT 0300. WILL CONTINUE TO MONITOR CLOSELY.
[2020-03-24] MEDS: HYDROcodone/acetaminophen 10/325mg tab PO PRN ×2 (00:37→11:27)
[2020-03-24 03:00] VITALS: BP 129/86
--- NOTE | 2020-03-24 03:10 | NUR ---
DVT PTT 58 AND THERAPEUTIC. WILL CONTINUE TO INFUSE HEPARIN AT 1900 UNITS/HR. NEXT PTT 0900.
[2020-03-24 03:35] LABS: BASOPHILS % (AUTO) 0.6 % (0-1); EOSINOPHILS # (AUTO) 0.1 X10'3 (0-0.9); EOSINOPHILS % (AUTO) 1.5 % (0-6); HEMATOCRIT 33.9 % (42.0-52.0); HEMOGLOBIN 10.7 g/dl (14.0-17.9); LYMPHOCYTES # (AUTO) 0.9 X10'3 (1.1-4.8); LYMPHOCYTES % (AUTO) 14.2 % (21-51); MEAN CORPUSCULAR HEMOGLOBIN 25.9 PG (27.0-31.0); MEAN CORPUSCULAR HGB CONC 31.6 g/dL (33.0-36.5); MEAN PLATELET VOLUME 7.3 FL (7.4-10.4); MONOCYTES # (AUTO) 0.8 X10'3 (0-0.9); MONOCYTES % (AUTO) 12.7 % (2-12); NEUTROPHILS # (AUTO) 4.6 X10'3 (1.8-7.7); PLATELET COUNT 301 X10'3 (140-440); RED BLOOD COUNT 4.14 X10'6 (4.70-6.10); RED CELL DISTRIBUTION WIDTH 18.7 % (11.5-14.5); WHITE BLOOD COUNT 6.5 X10'3 (4.5-11.0)
[2020-03-24 03:36] LABS: ALBUMIN 2.7 G/DL (3.4-5.0); ANION GAP 5 (8-16); BLOOD UREA NITROGEN 23 MG/DL (7-18); BUN/CREATININE RATIO 18.3 (5.4-32.0); CALCIUM 8.7 MG/DL (8.5-10.1); CHLORIDE 104 MMOL/L (99-107); CREATININE 1.26 MG/DL (0.60-1.10); GLUCOSE 91 MG/DL (70-104); POTASSIUM 4.3 MMOL/L (3.5-5.1); SODIUM 141 MMOL/L (135-145); TOTAL CARBON DIOXIDE 32.4 MMOL/L (24-32); eGFR 60 ML/MIN
[2020-03-24] MEDS: vancomycin/NS 1 GM ADD-VANTAGE 250 ML X 1 DOSE IV SCH (03:51)
[2020-03-24] MEDS: normal saline 1000ml 1,000 ML IV SCH (03:52)
--- NOTE | 2020-03-24 06:30 | NUR ---
Patient in room PCU 3022. I have received report from Alexei Carlin and had the opportunity to ask questions and assume patient care. Patient awake and oriented at this time, offers no complaints, will continue to monitor.
--- NOTE | 2020-03-24 06:35 | NUR ---
Problems reprioritized. Patient report given, questions answered & plan of care reviewed with MOOSE LEVIN AND MOOSE BEVERLY.
[2020-03-24 07:00] VITALS: BP 129/98
[2020-03-24] MEDS: lactobacillus rhamnosus 10,000 MMU CELLS/CAPSULE PO SCH (08:00)
[2020-03-24] MEDS: levoTHYROXINE 100mcg tablet PO SCH (08:49)
[2020-03-24] MEDS: carVEDilol 12.5mg tablet PO SCH (08:50)
[2020-03-24] MEDS: duloxetine 20mg capsule.DR PO SCH (08:50)
[2020-03-24] MEDS: heparin 25,000 UNIT/250ml bag 250 ML IV SCH (08:54)
--- NOTE | 2020-03-24 10:24 | NUR ---
Rm 3022, Bill. new order for PICC line, signed consent in chart. Thanks
[2020-03-24 11:47] LABS: ANISOCYTOSIS 2+; PLATELET ESTIMATE NORMAL
--- NOTE | 2020-03-24 14:06 | NUR ---
PICC Line inserted in right upper arm (Basilic). POWERPICC Double Lumen. 50cm Length, 4cm out, 40cm Arm Circ.; REF [id number], LOT [id number], Exp 12/03/20
--- NOTE | 2020-03-24 14:23 | NUR ---
Patient was transferred at 1410 to [facility]. Patient was wheeled out by [facility] [employer] staff. Discharge/transfer paperwork was given to electric mule driver, all patient belongings were sent with patient. Tele was d/c'd, PICC was in place with dressing CDI, patient was stable at transfer of care.
[2020-03-25] MEDS ORDERED: VANCOMYCIN LEVEL IV ONE (02:30)
== END 2020-03-24 14:10 | DRG 720 ==
LOC: ER 04:02 → ED HOLD 05:00 → PCU 3S 05:50 → CICU 2S 13:42 → PCU 3S 03-17 22:00
PROVIDERS: ADMIT Internal Medicine; ATTEND Internal Medicine
PROC: 02HV33Z Insertion of Infusion Device into Superior Vena Cava, Percutaneous Approach (ICD-10-PCS; principal; 2020-03-15)
PROC: BR39YZZ Magnetic Resonance Imaging (MRI) of Lumbar Spine using Other Contrast (ICD-10-PCS; 2020-03-19)
DX: A41.02 Sepsis due to Methicillin resistant Staphylococcus aureus (principal); C79.51 Secondary malignant neoplasm of bone; E03.9 Hypothyroidism, unspecified; E86.0 Dehydration; F17.200 Nicotine dependence, unspecified, uncomplicated; F32.9 Major depressive disorder, single episode, unspecified; I11.0 Hypertensive heart disease with heart failure; I42.7 Cardiomyopathy due to drug and external agent; I48.20 Chronic atrial fibrillation, unspecified; I50.9 Heart failure, unspecified; I82.C11 Acute embolism and thrombosis of right internal jugular vein; J45.909 Unspecified asthma, uncomplicated; F19.10 Other psychoactive substance abuse, uncomplicated; I95.9 Hypotension, unspecified; M54.9 Dorsalgia, unspecified; K68.12 Psoas muscle abscess; L03.314 Cellulitis of groin; M60.08 Infective myositis, other site; N17.9 Acute kidney failure, unspecified; Z82.0 Family history of epilepsy and other diseases of the nervous system; Z82.49 Family history of ischemic heart disease and other diseases of the circulatory system; Z86.711 Personal history of pulmonary embolism; Z86.718 Personal history of other venous thrombosis and embolism
CPT/HCPCS: 36415; 36573; 71045; 72158; 72192; 72195; 74176; 80048; 80053; 80074; 80202; 82550; 82948; 83605; 85025; 85610; 85730; 86703; 87040; 87077; 87081; 87186; 93005; 93306; 97110; 97116; 97161; 97530; 99285; A9575; G0378; J1170; J1644; J1650; J2270; J2543; J3370; J3490; J7030; J7040